=== PATIENT | female | born 1945 | race Caucasian/White ===

== ENCOUNTER 2020-08-08 09:25 | Outpatient (REF) | payer MEDICARE, SELFPAY ==
[2020-08-08 11:23] LABS: MANUAL DIFF FLAG NO
[2020-08-08 11:31] LABS: Basophils Percent Auto 0.6 % (0-2); Eosinophils Absolute Auto 0.2 X10*3/uL (0.0-0.4); Eosinophils Percent Auto 3.9 % (0-4); Hematocrit 45.2 % (37-47); Hemoglobin 13.9 g/dl (12.0-16.0); Imm Gran Abs Auto 0.01 X10*3/uL (0.00-0.03); Imm Gran Pct Auto 0.2 % (0.0-0.4); Lymphocytes Absolute Auto 1.7 X10*3/uL (1.2-4.9); Lymphocytes Percent Auto 31.6 % (20-40); Mean Corpuscular HGB Conc 30.8 g/dl (31.0-35.0); Mean Corpuscular Hemoglobin 26.1 pg (27.0-33.0); Mean Platelet Volume 10.1 fL (9.4-12.3); Monocytes Absolute Auto 0.5 X10*3/uL (0.1-1.2); Monocytes Percent Auto 9.2 % (2-11); Neutrophils Percent Auto 54.5 % (45-73); Platelet Count 275 X10*3/uL (160-400); Red Blood Count 5.32 X10*6/uL (4.20-5.50); Red Cell Distribution Width 13.9 % (11.0-16.0); White Blood Count 5.5 X10*3/uL (4.8-10.8)
[2020-08-08 12:04] LABS: Albumin Level 4.3 g/dL (3.5-5.0); Anion Gap 14 (12-20); Blood Urea Nitrogen 25 mg/dL (9-16); Calcium 9.3 mg/dL (8.4-10.2); Carbon Dioxide 28 mmol/L (22-29); Chloride 103 mmol/L (96-108); Estimated Glomerular Filt Rate 39; Phosphorus 3.4 mg/dL (2.7-4.5); Potassium 4.6 mmol/L (3.3-5.1); Sodium 140 mmol/L (135-145)
== END 2020-08-08 09:26 | disposition home or self-care (01) ==
LOC: HO.HMGCLDS 09:25
PROVIDERS: PCP Internal Medicine; Visit Provider Internal Medicine Hypertension Specialist
DX: I13.10 Hypertensive heart and chronic kidney disease without heart failure, with stage 1 through stage 4 chronic kidney disease, or unspecified chronic kidney disease (principal); N18.30 Chronic kidney disease, stage 3 unspecified
CPT/HCPCS: 36415; 80051; 82040; 82310; 82565; 83735; 84100; 84520; 85025

== ENCOUNTER 2020-08-20 08:57 | Outpatient (REF) | payer MEDICARE, SELFPAY ==
--- NOTE | 2020-08-21 10:25 | MHC.AU.P13 ---
Adult Audiological Evaluation Date of Visit: 08/20/20 Ambulance Officer Used: Not Applicable Reason for Appointment: Audiologic re-evaluation due to perceived change in hearing ability. Rosenda has a long-standing history of asymmetric hearing loss, right ear poorer than left with no speech discrimination ability for the right ear. She notes when she presses the tragus or behind the pinna of the left ear she hears more clearly when wearing the CROS hearing aid system. Previous Hearing Test Results: 06/24/2019 [facility] Left ear - Moderate sloping to moderately-severe sensorineural hearing loss Right ear - Moderately-severe dropping to profound sensorineural hearing loss Ear History: Bothersome Tinnitus/Ringing/Noises in Ears: Right ear greater than left Medical History: Medical History: High Blood Pressure Medical History: High Cholesterol Allergies: Statins, Irbesartan, Diovan, narcotic pain medications Medication List: Ezetimibe, Spirono/HCTZ, Verapamil, Omeprazole, Heidi and Nasacort (as needed) Hearing Instrument History- Right Ear: Cadd Manager: Phonak Model: CROS H2O Serial Number: [id number] Battery Size: 13 Repair Warranty: Dispensed By: [facility] Date of Fittin10/12/2013 Hearing Instrument History- Left Ear: Cadd Manager: Phonak Model: Bolero Q 50-M13 Serial Number: [id number] Battery Size: 13 Warranty: Dispensed By: [facility] Date of Fittin10/12/2013 Otoscopy: Right Ear: Unremarkable Left Ear: Unremarkable Tympanometry: Right Ear: Not performed at today's visit Left Ear: Not performed at today's visit Hearing Evaluation: Transducer(s) Used: Insert Earphones Bone Conduction Method: Conventional Audiometry Stimuli Used: Pure Tones Right Ear: Description of Hearing: Severe to profound sensorineural hearing loss Left Ear: Description of Hearing: Moderately-severe sensorineural hearing loss Speech Recognition Threshold (SRT): Method Used: Monitored Live Voice Stimuli Used: Spondee Words Right Ear: Could Not Test Left Ear: 50 dB HL Word Discrimination: Method: Recorded Lists Word Lists Used: NU-6 Right Ear: Could Not Test Left Ear: 80% at 80 dB HL Most Comfortable Level (MCL): Right Ear: N/A Left Ear: 80 dB HL Comparison: Compared to most recent evaluation: Overall left ear thresholds are stable with the right ear low frequencies decreasing 10 dB Recommendations: Audiological re-evaluation in one year. Will send a reminder card. Hearing aid maintenance performed today. Given Rosenda feels the left ear hearing improves when she presses on the tragus or behind the pinna, decided to change the type of dome on the left aid to try to hold the sound in the ear better. Custom slim tips have been tried in the past; however, this ear piece caused a blocked sensation. If the change in the left ear dome does not improve the sound quality. Discussed trial period with a new CROS system. If interested in pursuing new CROS system, Rosenda may schedule a Hearing Aid Evaluation appointment. If after 02/20/2021, a new hearing test must be performed. Diagnosis: Primary Diagnosis: H90.3 Bilateral Sensorineural Hearing Loss Services Performed: Comprehensive Audiological Evaluation (CPT 32705) Signature: Provider: Flaquito Fuller, SOLA-A
== END 2020-08-20 08:58 | disposition home or self-care (01) ==
LOC: HO.SH 08:57
PROVIDERS: Visit Provider Internal Medicine
DX: H90.3 Sensorineural hearing loss, bilateral (principal)
CPT/HCPCS: 92557

== ENCOUNTER 2020-08-28 10:22 | Outpatient (REF) | payer MEDICARE, SELFPAY ==
--- NOTE | ~2020-08-28 | MM_ITS ---
EXAMINATION: MM SCREENING DIGITAL BREAST TOMOSYNTHESIS, BILATERAL CLINICAL INFORMATION: Screening. Asymptomatic. The lifetime risk of breast cancer based on the Tyrer-Cuzick Model is 1%. COMPARISON: Mammography: 06/21/2019, 03/29/2018, 03/26/2017 TECHNIQUE: Digital breast tomosynthesis is performed in both the craniocaudal and mediolateral oblique views along with computer-aided detection (CAD). Synthesized 2D images are generated from the tomosynthesis. FINDINGS: There are scattered areas of fibroglandular density (ACR BI-RADS breast composition Category b). There are scattered bilateral parenchymal asymmetries similar to prior exams. There is no developing density or interval mass or architectural abnormality or abnormal calcifications. The axilla and skin contours are unremarkable. No significant changes from prior studies. MM/MM tomosynthesis screening BI IMPRESSION: No mammographic evidence of malignancy. ASSESSMENT: BI-RADS 2: Benign RECOMMENDATION: Routine annual mammography screening. This patient's information was entered into a reminder system with a target due date for their next mammogram.
== END 2020-08-28 10:23 | disposition home or self-care (01) ==
LOC: HO.MAMMO 10:22
PROVIDERS: PCP Internal Medicine; Visit Provider Internal Medicine
DX: Z12.31 Encounter for screening mammogram for malignant neoplasm of breast (principal)
CPT/HCPCS: 77063; 77067

== ENCOUNTER → 2020-10-22 12:47 | Outpatient (BNVA) | payer MEDICARE, SELFPAY | PROVIDERS: PCP Internal Medicine; Visit Provider Internal Medicine | DX: I48.0 Paroxysmal atrial fibrillation (principal); I70.0 Atherosclerosis of aorta; I10 Essential (primary) hypertension; K26.4 Chronic or unspecified duodenal ulcer with hemorrhage; Z79.899 Other long term (current) drug therapy | CPT/HCPCS: 93005; 99212 ==

== ENCOUNTER → 2020-10-26 11:03 | Outpatient (REF) | payer MEDICARE, SELFPAY ==
--- NOTE | 2020-10-26 11:07 | HM_ITS ---
REQUESTING PROVIDER: Dr. Younger. REASON FOR TEST: Paroxysmal atrial fibrillation. TECHNIQUE: The patient was hooked up to cardiac event monitor on 10/26/2020 to 11/25/2020 for a total period of 30 days. INTERPRETATION: Baseline rhythm is normal sinus rhythm with heart rate varying from 52 to 73 beats per minute. There were no episodes of any arrhythmias noted. There was no atrial fibrillation. The patient reported symptom of baseline shortness of breath that correlated with sinus rhythm. CONCLUSION: Holter report is remarkable for: 1. Baseline normal sinus rhythm with no atrial fibrillation. 2. The patient reported symptoms of shortness of breath, correlated with sinus rhythm. Rosendo Smallwood MD NRS/MODL / [id number]
== END ==
LOC: HO.CARD 11:03
PROVIDERS: PCP Internal Medicine; Visit Provider Internal Medicine
DX: I48.0 Paroxysmal atrial fibrillation (principal)
CPT/HCPCS: 93270

== ENCOUNTER 2020-11-27 23:28 | Emergency (ER) | payer MEDICARE, SELFPAY ==
--- NOTE | ~2020-11-27 | XR_ITS ---
EXAMINATION: XR CHEST CLINICAL INFORMATION: Shortness of breath COMPARISON: None TECHNIQUE: Frontal view of the chest was obtained. FINDINGS: Normal symmetric lung volumes. No parenchymal consolidation. Left basilar subsegmental atelectasis. No pleural effusion. No pneumothorax. Cardiomediastinal silhouette and pulmonary vascularity are within normal limits. Aorta is atherosclerotic. No acute osseous abnormalities. XR/XR chest 1V IMPRESSION: No acute findings.
[2020-11-27 23:39] VITALS: BP 147/93; PULSE 120; RESP 24; TEMP 36.7; O2SAT 95; BMI 34.9
--- NOTE | 2020-11-27 23:45 | ECG_ITS ---
Test Reason : SOB Blood Pressure : / mmHG Vent. Rate : 109 BPM Atrial Rate : 088 BPM P-R Int : 000 ms QRS Dur : 076 ms QT Int : 342 ms P-R-T Axes : 000 -15 -17 degrees QTc Int : 460 ms Atrial fibrillation with rapid ventricular response Inferior infarct , age undetermined - cannot exclude Abnormal ECG When compared with ECG of 24-JAN-2019 08:42, Rhythm change Referred By: Rell Mayer Electronically Signed By:AGUEDA ENCISO
[2020-11-27 23:56] LABS: MANUAL DIFF FLAG NO
[2020-11-27 23:57] LABS: Basophils Percent Auto 0.1 % (0-2); Eosinophils Absolute Auto 0.2 X10*3/uL (0.0-0.4); Eosinophils Percent Auto 1.5 % (0-4); Hematocrit 45.9 % (37-47); Hemoglobin 14.9 g/dl (12.0-16.0); Imm Gran Abs Auto 0.05 X10*3/uL (0.00-0.03); Imm Gran Pct Auto 0.5 % (0.0-0.4); Lymphocytes Absolute Auto 2.1 X10*3/uL (1.2-4.9); Lymphocytes Percent Auto 19.2 % (20-40); Mean Corpuscular HGB Conc 32.5 g/dl (31.0-35.0); Mean Corpuscular Hemoglobin 26.8 pg (27.0-33.0); Mean Corpuscular Volume 82.6 fL (80-98); Mean Platelet Volume 9.2 fL (9.4-12.3); Monocytes Absolute Auto 0.7 X10*3/uL (0.1-1.2); Monocytes Percent Auto 6.7 % (2-11); Neutrophils Absolute Auto 7.7 X10*3/uL (2.0-8.3); Platelet Count 296 X10*3/uL (160-400); Red Blood Count 5.56 X10*6/uL (4.20-5.50); Red Cell Distribution Width 14.6 % (11.0-16.0); White Blood Count 10.7 X10*3/uL (4.8-10.8)
--- NOTE | 2020-11-28 00:02 | ED.ARRPALP ---
HPI - Arrhythmia/Palpitations General Chief Complaint: Arrhythmia/Palpitations Stated Complaint: A fib Time Seen by Provider: 11/28/20 00:01 Source: patient Mode of arrival: ambulatory Limitations: no limitations History of Present Illness HPI narrative: Patient with history of paroxysmal atrial fibrillation on verapamil 200 mg daily and metoprolol 25 mg daily was doing okay for last few months till last 1 when he had a small episode of palpitation and was wearing Holter monitor for 30 days, today since 22:00 notice heart racing with dizziness lightheadedness and chest discomfort EMS noticed heart rate of 150s in the ER patient's heart rate was in 120s AFib patient denies any fever chills cough, feels slightly short winded patient had bleeding ulcer last year and had to be given 4 units of blood after she started on Eliquis for AFib Related Data Home Medications Medication Instructions Recorded Confirmed ezetimibe 10 mg tablet 10 mg PO DAILY 10/22/20 10/22/20 metoprolol succinate 25 mg 25 mg PO DAILY 10/22/20 10/22/20 tablet,extended release 24 hr multivitamin 1 tab PO DAILY 10/22/20 10/22/20 omeprazole 20 mg capsule,delayed 20 mg PO DAILY 10/22/20 10/22/20 release rosuvastatin 10 mg tablet 10 mg PO BEDTIME 10/22/20 10/22/20 spironolactone 25 1 tab PO DAILY 10/22/20 10/22/20 mg-hydrochlorothiazide 25 mg tablet verapamil 200 mg capsule 24hr 200 mg PO DAILY 10/22/20 10/22/[address],ext.release Allergies Allergy/AdvReac Type Severity Reaction Status Date / Time irbesartan [IRBESARTAN] Allergy Unknown RASH Verified 11/27/20 23:44 latex [LATEX] Allergy Unknown RASH Verified 11/27/20 23:44 lisinopril [LISINOPRIL] Allergy Unknown PER MD Verified 11/27/20 23:44 losartan [LOSARTAN] Allergy Unknown PER MD Verified 11/27/20 23:44 NSAIDS (Non-Steroidal Allergy Unknown STAGE 3 Verified 11/27/20 23:44 Anti-Inflamma KIDNEY [NSAIDS (NON-STEROIDAL DISEASE ANTI-INFLAMMA] omeprazole [OMEPRAZOLE] Allergy Unknown RASH Verified 11/27/20 23:44 Ozhbdwh-Vdx-Ewq Reductase Allergy Unknown PER MD Verified 11/27/20 23:44 Inhibitor [ZBGAELG-HKV-UGF REDUCTASE INHIBITOR] sulfamethoxazole Allergy Unknown RASH Verified 11/27/20 23:44 [From BACTRIM] trimethoprim [From BACTRIM] Allergy Unknown RASH Verified 11/27/20 23:44 valsartan [From DIOVAN] Allergy Unknown HIVE,DIFFICULTY Verified 11/27/20 23:44 BREATHING meperidine [From Demerol] AdvReac Mild VOMITING Verified 10/22/20 12:57 BANDAIDS Allergy Unknown RASH Uncoded 10/22/20 12:57 most narcotics Allergy Unknown unk Uncoded 10/22/20 12:57 ALL NARCOTICS AdvReac Unknown NAUSEA AND Uncoded 10/22/20 12:57 VOMITING Review of Systems Review of Systems: Constitutional : No Weight loss, No Fever, No Chills ENT/Mouth : No sore throat, No Rhinorrhea Eyes: No Eye Pain, No Swelling Cardiovascular : No Chest Pain,+palpitations Respiratory : No Cough, No Sputum, + shortness of breath Gastrointestinal : no Nausea, No Vomiting, No Diarrhea, No abdominal Pain, no black stools Genitourinary : No Dysuria, No Urinary Frequency Musculoskeletal : No joint pain, No Myalgias, No Joint Swelling Skin : No Skin Lesions, No rash Neuro : No Weakness, No Numbness, + Dizziness, No Headache Psych : No Anxiety/Panic, No Depression Heme/Lymph: No Bruising, No Lymphadenopathy Endocrine : No Polyuria, No Polydipsia All other systems reviewed and are negative PMFSH Past Medical History Medical History Aortic calcification Duodenal ulcer Essential hypertension Hemorrhage of gastrointestinal tract, unspecified PAF (paroxysmal atrial fibrillation) Surgical History History of colectomy History of foot surgery History of hysterectomy History of parathyroidectomy Family History Family History Father No problems noted. Mother No problems noted. Social History Social History Advance Directives: No Advance Directives Information Provided: No Physical Exam Vital Signs: Vital Signs: Last Vital Signs Temp 98.1 F 11/27/20 23:39 Pulse 89 11/28/20 01:17 Resp 16 11/28/20 01:17 BP 134/73 11/28/20 01:17 Pulse Ox 95 11/28/20 01:17 Body Mass Index 34.9 Appearance: Alert. Oriented X3. No acute distress. Eyes: PERRLA, No Nystagmus ENT: Pharynx normal. Oral Mucosa moist Neck: Normal inspection. Neck supple. CVS: Irregularly irregular heart rate tachycardia no murmur Pulses normal. Respiratory: No respiratory distress. Equal air entry bilateral, no wheezing/rales/rhonchi Abdomen: Soft and nontender. Bowel sounds are present, no mass palpable, no CVA tenderness Skin: Skin warm and dry. Normal skin color. Normal skin turgor. Extremities: No lower extremity edema. No calf tenderness Neuro: Oriented X 3. No motor deficit. No sensory deficit.No cerebellar signs , cranial nerves II-XII intact MDM - Arrhythmia/Palpitations MDM Narrative Medical decision making narrative: Patient with atrial fibrillation on metoprolol and verapamil came with rapid ventricular rate in 150s responded to 5 mg of Lopressor IV at this time heart rate is in 80s. 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 Lab Data Attestation: I reviewed the patient's lab results. Result diagrams: 11/27/20 23:52 11/27/20 23:52 Labs: Lab Results 11/27/20 11/27/20 11/27/20 Range/Units 23:52 23:52 23:52 WBC 10.7 (4.8-10.8) X10*3/uL RBC 5.56 H (4.20-5.50) X10*6/uL Hgb 14.9 (12.0-16.0) g/dl Hct 45.9 (37-47) % MCV 82.6 (80-98) fL MCH 26.8 L (27.0-33.0) pg MCHC 32.5 (31.0-35.0) g/dl RDW 14.6 (11.0-16.0) % Plt Count 296 (160-400) X10*3/uL MPV 9.2 L (9.4-12.3) fL Immature Gran % (Auto) 0.5 H (0.0-0.4) % Neut % (Auto) 72.0 (45-73) % Lymph % (Auto) 19.2 L (20-40) % [place] % (Auto) 6.7 (2-11) % Eos % (Auto) 1.5 (0-4) % Baso % (Auto) 0.1 (0-2) % Lymph # (Auto) 2.1 (1.2-4.9) X10*3/uL [place] # (Auto) 0.7 (0.1-1.2) X10*3/uL Eos # (Auto) 0.2 (0.0-0.4) X10*3/uL Baso # (Auto) 0.0 (0.0-0.2) X10*3/uL Abs Immat Gran (auto) 0.05 H (0.00-0.03) X10*3/uL Absolute Neuts (auto) 7.7 (2.0-8.3) X10*3/uL Absolute Nucleated RBC 0.000 (0.0-0.012) X10*3/uL Nucleated RBC % (auto) 0.0 (0.0-0.2) /100WBC Hold Blue Top SEE NOTE Sodium 136 (135-145) mmol/L Potassium 4.1 (3.3-5.1) mmol/L Chloride 99 (96-108) mmol/L Carbon Dioxide 23 (22-29) mmol/L Anion Gap 18 (12-20) BUN 48 H D (9-16) mg/dL Creatinine 1.38 (0.5-1.4) mg/dL Estim Creat Clear Calc 33.5 Estimated GFR 37 Random Glucose 138 H (60-115) mg/dL Calcium 9.5 (8.4-10.2) mg/dL Troponin I High Sens (<3.5-17.0) ng/L 11/27/20 Range/Units 23:52 WBC (4.8-10.8) X10*3/uL RBC (4.20-5.50) X10*6/uL Hgb (12.0-16.0) g/dl Hct (37-47) % MCV (80-98) fL MCH (27.0-33.0) pg MCHC (31.0-35.0) g/dl RDW (11.0-16.0) % Plt Count (160-400) X10*3/uL MPV (9.4-12.3) fL Immature Gran % (Auto) (0.0-0.4) % Neut % (Auto) (45-73) % Lymph % (Auto) (20-40) % [place] % (Auto) (2-11) % Eos % (Auto) (0-4) % Baso % (Auto) (0-2) % Lymph # (Auto) (1.2-4.9) X10*3/uL [place] # (Auto) (0.1-1.2) X10*3/uL Eos # (Auto) (0.0-0.4) X10*3/uL Baso # (Auto) (0.0-0.2) X10*3/uL Abs Immat Gran (auto) (0.00-0.03) X10*3/uL Absolute Neuts (auto) (2.0-8.3) X10*3/uL Absolute Nucleated RBC (0.0-0.012) X10*3/uL Nucleated RBC % (auto) (0.0-0.2) /100WBC Hold Blue Top Sodium (135-145) mmol/L Potassium (3.3-5.1) mmol/L Chloride (96-108) mmol/L Carbon Dioxide (22-29) mmol/L Anion Gap (12-20) BUN (9-16) mg/dL Creatinine (0.5-1.4) mg/dL Estim Creat Clear Calc Estimated GFR Random Glucose (60-115) mg/dL Calcium (8.4-10.2) mg/dL Troponin I High Sens 12.9 (<3.5-17.0) ng/L ECG Data Attestation: I personally reviewed and interpreted this ECG as follows: Interpretation: Atrial fibrillation with ventricular rate of 109 beats per minute Q-wave inferior leads no acute ischemic changes Discharge Plan Discharge Clinical Impression: PAF (paroxysmal atrial fibrillation) Patient Disposition: Home, Self-Care Instructions: A-fib (Atrial Fibrillation) (ED) Additional Instructions: Continue medications as prescribed and follow with branding machine tender Increase the dose of metoprolol to 25 mg twice daily Report to the ER if further attacks of palpitation Prescriptions: No Action metoprolol succinate 25 mg tablet extended release 24 hr 25 mg PO DAILY RF: 0 rosuvastatin 10 mg tablet 10 mg PO BEDTIME RF: 0 omeprazole 20 mg capsule,delayed release(DR/EC) 20 mg PO DAILY RF: 0 spironolacton-hydrochlorothiaz 25-25 mg tablet 1 tab PO DAILY RF: 0 ezetimibe 10 mg tablet 10 mg PO DAILY RF: 0 verapamil 200 mg capsule, [address] 200 mg PO DAILY RF: 0 multivitamin Tablet 1 tab PO DAILY RF: 0
--- NOTE | 2020-11-28 00:05 | PC.NURSE ---
IV established, labs and EKG obtained by this RN. at bedside, plan for IV medications. Pt resting in bed, family at bedside. Continue to monitor.
[2020-11-28 00:19] VITALS: BP 122/69; PULSE 116
[2020-11-28] MEDS: Metoprolol Tartrate 5 MG/5 ML VIAL IVPUSH (00:19)
[2020-11-28 00:28] VITALS: BP 107/57; PULSE 92; RESP 22; O2SAT 95
--- NOTE | 2020-11-28 00:30 | PC.NURSE ---
Pt medicated per JOSIAH VSS. XRay at bedside.
[2020-11-28 00:31] LABS: Troponin-I High Sensitivity 12.9 ng/L (<3.5-17.0)
[2020-11-28 00:47] LABS: Anion Gap 18 (12-20); Blood Urea Nitrogen 48 mg/dL (9-16); Calcium 9.5 mg/dL (8.4-10.2); Carbon Dioxide 23 mmol/L (22-29); Chloride 99 mmol/L (96-108); Creatinine Clr Calc Pharmacy 33.5; Estimated Glomerular Filt Rate 37; Glucose Random 138 mg/dL (60-115); Potassium 4.1 mmol/L (3.3-5.1); Sodium 136 mmol/L (135-145)
--- NOTE | 2020-11-28 01:16 | PC.NURSE ---
MD at bedside discussing results and plan to DC home. VSS.
[2020-11-28 01:17] VITALS: BP 134/73; PULSE 89; RESP 16; O2SAT 95
== END 2020-11-28 01:42 | disposition home or self-care (01) ==
PROVIDERS: Emergency Provider Internal Medicine; PCP Internal Medicine
DX: I48.0 Paroxysmal atrial fibrillation (principal); I10 Essential (primary) hypertension; Z79.899 Other long term (current) drug therapy
CPT/HCPCS: 36415; 71045; 80048; 84484; 85025; 93005; 96374; 99284

== ENCOUNTER 2020-12-04 14:08 | Outpatient (REF) | payer MEDICARE, SELFPAY ==
--- NOTE | ~2020-12-04 | XR_ITS ---
EXAMINATION: XR HAND, BILATERAL CLINICAL INFORMATION: Hand pain. COMPARISON: None. TECHNIQUE: 3 views of each hand. FINDINGS: Left Hand: There is no evidence of acute fracture or dislocation of the left hand. There is some mild spurring about the 1st metacarpophalangeal joint and 1st interphalangeal joint. No significant joint space narrowing is seen. No erosive bony changes noted. No significant soft tissue swelling. No significant wrist abnormality identified. There is minimal spurring about the 1st carpometacarpal joint. There is a subchondral cysts seen within the proximal lunate. Right Hand: 3 views of the right hand do not demonstrate any evidence of acute fracture or dislocation. Bony density about the ulnar aspect of the 5th distal interphalangeal joint seen, most likely posttraumatic in nature. Joint spaces are maintained. There is mild spurring about the 1st carpometacarpal joint. There is some mild degenerative spurring about the 1st metacarpophalangeal joint with subchondral cyst about the distal 1st metacarpal. There is a small periarticular erosion about the radial aspect base of the 3rd proximal phalanx. No other erosive changes are identified. There is calcification of the triangular fibrocartilage. XR/XR hand LT min 3V IMPRESSION: Mild degenerative change of both hands without significant osteoarthritis or erosive arthritides appreciated.
--- NOTE | ~2020-12-04 | XR_ITS ---
EXAMINATION: XR HAND, BILATERAL CLINICAL INFORMATION: Hand pain. COMPARISON: None. TECHNIQUE: 3 views of each hand. FINDINGS: Left Hand: There is no evidence of acute fracture or dislocation of the left hand. There is some mild spurring about the 1st metacarpophalangeal joint and 1st interphalangeal joint. No significant joint space narrowing is seen. No erosive bony changes noted. No significant soft tissue swelling. No significant wrist abnormality identified. There is minimal spurring about the 1st carpometacarpal joint. There is a subchondral cysts seen within the proximal lunate. Right Hand: 3 views of the right hand do not demonstrate any evidence of acute fracture or dislocation. Bony density about the ulnar aspect of the 5th distal interphalangeal joint seen, most likely posttraumatic in nature. Joint spaces are maintained. There is mild spurring about the 1st carpometacarpal joint. There is some mild degenerative spurring about the 1st metacarpophalangeal joint with subchondral cyst about the distal 1st metacarpal. There is a small periarticular erosion about the radial aspect base of the 3rd proximal phalanx. No other erosive changes are identified. There is calcification of the triangular fibrocartilage. XR/XR hand RT min 3V IMPRESSION: Mild degenerative change of both hands without significant osteoarthritis or erosive arthritides appreciated.
[2020-12-04 15:25] LABS: MANUAL DIFF FLAG NO
[2020-12-04 15:28] LABS: Basophils Percent Auto 0.3 % (0-2); Eosinophils Absolute Auto 0.1 X10*3/uL (0.0-0.4); Eosinophils Percent Auto 2.1 % (0-4); Hematocrit 43.1 % (37-47); Hemoglobin 13.4 g/dl (12.0-16.0); Imm Gran Abs Auto 0.02 X10*3/uL (0.00-0.03); Imm Gran Pct Auto 0.3 % (0.0-0.4); Lymphocytes Absolute Auto 1.2 X10*3/uL (1.2-4.9); Lymphocytes Percent Auto 20.8 % (20-40); Mean Corpuscular HGB Conc 31.1 g/dl (31.0-35.0); Mean Corpuscular Hemoglobin 26.4 pg (27.0-33.0); Mean Platelet Volume 9.4 fL (9.4-12.3); Monocytes Absolute Auto 0.3 X10*3/uL (0.1-1.2); Monocytes Percent Auto 5.7 % (2-11); Neutrophils Absolute Auto 4.1 X10*3/uL (2.0-8.3); Neutrophils Percent Auto 70.8 % (45-73); Platelet Count 246 X10*3/uL (160-400); Red Blood Count 5.07 X10*6/uL (4.20-5.50); Red Cell Distribution Width 14.7 % (11.0-16.0); White Blood Count 5.8 X10*3/uL (4.8-10.8)
[2020-12-04 15:48] LABS: Alanine Aminotransferase 20 U/L (0-31); Albumin Level 4.3 g/dL (3.5-5.0); Alkaline Phosphatase 54 U/L (39-117); Anion Gap 11 (12-20); Aspartate Amino Transferase 20 U/L (5-31); Bilirubin Total 0.6 mg/dL (0.0-1.0); Blood Urea Nitrogen 29 mg/dL (9-16); C Reactive Protein 0.38 mg/dL (< or = 0.50); Calcium 9.6 mg/dL (8.4-10.2); Carbon Dioxide 29 mmol/L (22-29); Chloride 103 mmol/L (96-108); Estimated Glomerular Filt Rate 37; Glucose Random 165 mg/dL (60-115); Potassium 4.1 mmol/L (3.3-5.1); Sodium 139 mmol/L (135-145); Total Protein 6.5 g/dL (6.5-8.0)
[2020-12-04 16:11] LABS: Erythrocyte Sedimentation Rate 28 MM/HR (0-20)
[2020-12-05 08:42] LABS: Lyme Abs Screen <0.90 index
[2020-12-05 15:36] LABS: Cyclic Citrullinated Peptide <16 UNITS
[2020-12-08 15:22] LABS: Vitamin D 25-OH, D2 <4 ng/mL; Vitamin D 25-OH, D3 40 ng/mL; Vitamin D 25-OH, Total 40 ng/mL (30-100)
== END 2020-12-04 14:09 | disposition home or self-care (01) ==
LOC: HO.XRAY 14:08
PROVIDERS: PCP Internal Medicine; Visit Provider Student in an Organized Health Care Education/Training Program
DX: M79.641 Pain in right hand (principal); M79.642 Pain in left hand; M65.4 Radial styloid tenosynovitis [de Quervain]; M25.50 Pain in unspecified joint; Z79.899 Other long term (current) drug therapy
CPT/HCPCS: 36415; 73130; 80053; 82306; 84443; 85025; 85652; 86140; 86200; 86617; 86618; 99202

== ENCOUNTER → 2020-12-11 12:50 | Outpatient (REF) | payer MEDICARE, SELFPAY ==
--- NOTE | 2020-12-11 12:53 | CA_ITS ---
Transthoracic Echocardiogram Patient (Last, First, Middle): Rosenda Butler L Gender: Female Date of : 1945 Age: 75 Procedure Date: 12/11/2020 Procedure Type: Transthoracic Echocardiogram Location: OP Height: 154.94 cm Weight: 86.64 kg BSA: 1.85 m2 Heart Rate: bpm BP: 178 / 92 mmHg Consolidation Accountant: MERISSA/CHANTAL Referring MD: Melquiades Younger MD Wound/Ostomy Clinical Nurse Specialist: Rosendo Smallwood MD Symptoms: I48.0 - Paroxysmal atrial fibrillation Study Quality: Technically Difficult ECG Rhythm: Sinus Conclusions: - 1. Normal LV systolic function with grade 2 diastolic dysfunction 2. Mildly dilatedleft atrium 3. Normal cardiac valvular Doppler 4. Systolic pressure 5. No pericardial effusion Findings Left Ventricle Normal left ventricular size, thickness, and systolic function. The visually estimated ejection fraction is between 55-60%. Spectral Doppler is indicative of a pseudonormal filling pattern. E/E prime ratio is >15, consistent with elevated filling pressures. Evidence suggests grade II (moderate) diastolic dysfunction. Right Ventricle Normal right ventricular cavity size and systolic function. Atria The left atrium is mildly dilated. There is lipomatous hypertrophy of the interatrial septum. There is no evidence of interatrial shunt. The right atrium is normal in size. Aortic Valve Normal aortic valve structure and function. There is no aortic valve stenosis. There is no aortic valve regurgitation. Mitral Valve Normal mitral valve structure and function. There is trace mitral valve regurgitation. There is no mitral valve stenosis. Pulmonic Valve The pulmonic valve was not well visualized. Tricuspid Valve Likely normal tricuspid valve structure and function. Tricuspid regurgitation envelope is inadequate for calculation of right ventricular systolic pressure. Great Vessels All visible segments of the aorta are normal in size. The pulmonary artery was not well visualized. Venous The inferior vena cava is normal in size and collapses greater than 50% with inspiration. Pericardium/Pleural There is no evidence of pericardial effusion. Prior Study Comparison Changes noted compared to prior study dated: 01/20/2019. LV diastolic function is pseudonormal in this study Measurements M-Mode Liner Measurements Normals - Women/Men AOV Cusps: 2.00 1.5-2.6 cm/m2 2D Linear Measurements IVSd: 1.04 0.6-0.9/0.6-1.0 cm LVIDd: 4.49 3.9-5.3/4.2-5.9 cm LVIDd Index: 2.43 2.4-3.2/2.2-3.1 cm/m2 LVIDs: 2.79 2.0-3.6 cm LVPWd: 0.95 0.7-1.1 cm Ao Root: 3.30 2.1-3.5 cm LA Diam: 4.20 2.7-3.8/3.0-4.0 cm LAIDs Index: 2.27 1.5-2.3 cm/m2 LV Mass: 210.05 67-162/88-224 g LV Mass Index: 113.54 43-95/49-115 g/m2 LVOT Diam: 1.90 3.0+(-)1.3 cm 2D Systolic Function EF 4C: 47.30 >55% EF 2C: 61.20 >55% Mitral Valve MV Pk E: 1.10 MV PK A: 0.83 MV Decel Time: 191.00 E/A: 1.30 E'Lateral: 8.05 E'Medial: 5.98 E/E' Med: 18.40 E/E' Lat: 13.70 PHT: 56.00 MVA PHT: 3.93 Decel Nicollet: 5.73 Aortic Valve AoV Pk Aniket: 1.18 AoV Mn Aniket: 0.78 AoV VTI: 0.28 AoV Pk Grad: 6.00 Aov Mn Grad: 3.00 TAQUERIA Cont.VTI: 2.67 LVOT LVOT Pk Aniket: 0.97 LVOT Mn Aniket: 0.69 LVOT VTI: 0.26 LVOT Pk Grad: 4.00 LVOT Mn Grad: 3.00 LVOT Diam: 1.90 LVOT Area: 2.84 Diastolic Function MV Pk E: 1.10 MV Pk A: 0.83 E/A: 1.30 E'Medial: 5.98 E/E' Med: 18.40 E' Laterial: 8.05 E/E' Lat: 13.70 Tricuspid Valve TR Pk Aniket: 2.69 TR Pk Grad: 29.00 RA Press: 3.00 Great Vessels Aorta Ao Root-2D: 3.30 2.0-3.7 cm Ao Asc: 2.80 2.1-3.4 cm Ao Arch: 2.60 Pulmonary Valve PV Pk Aniket: 0.86 Peak PV Grad: 3.00 Updated in Other Vendor System with Status of Final Rosendo Smallwood MD electronically signed on 12/11/2020 4:28:20 PM with status of Final
== END ==
LOC: HO.CARD 12:50
PROVIDERS: Visit Provider Internal Medicine
DX: I48.0 Paroxysmal atrial fibrillation (principal)
CPT/HCPCS: 93306

== ENCOUNTER → 2020-12-13 11:09 | Outpatient (BNVA) | payer MEDICARE, SELFPAY | PROVIDERS: PCP Internal Medicine; Referring Provider Internal Medicine; Visit Provider Internal Medicine | DX: I48.0 Paroxysmal atrial fibrillation (principal); I70.0 Atherosclerosis of aorta; K26.4 Chronic or unspecified duodenal ulcer with hemorrhage; I10 Essential (primary) hypertension | CPT/HCPCS: 99212 ==

== ENCOUNTER → 2020-12-25 09:09 | Outpatient (BNVA) | payer MEDICARE, SELFPAY | PROVIDERS: PCP Internal Medicine; Referring Provider Internal Medicine; Visit Provider Internal Medicine Gastroenterology | DX: K26.9 Duodenal ulcer, unspecified as acute or chronic, without hemorrhage or perforation (principal) | CPT/HCPCS: 99212 ==

== ENCOUNTER 2021-01-09 12:30 | Outpatient (RCR) | payer MEDICARE, SELFPAY ==
--- NOTE | 2020-12-20 15:09 | MHC.OT.OEV ---
[address] [phone] F: [phone] Occupational Therapy Evaluation Diagnosis: RIGHT HAND PAIN Date of Onset: 10/02/20 Attending Provider: Barney Gonzalez Prescribed Treatment: SOFIA IQBAL Follow Up Appointment: 01/10/21 History of Current Condition: REPORTS GRADUAL ONSET OF PAIN TO R THUMB AND RADIAL WRIST, WELL PAIN IN IPs OF B/L HANDS Significant Medical History: HX OF CTS, L SHOULDER INJURY, TRIGGER FINGER L D3 S/P CORTISONE INJECTION , BACK PAIN, ESSENTIAL HTN, RECENT DX OF AFIB Precautions/Contraindications: PAIN, AFIB Patient Goals: TO DECREASE PAIN AND PREVENT RETURN OF SYMPTOMS Hand Dominance: Right Observations: PRE-KEON THUMB SPICA DONNED QuickDASH Score: 30% Prior Level of Function and Occupation Self Care, Employment, Leisure: RETIRED. INVOLVED WITH [employer] HOBBIES: JOSE, CARING FOR ELDERLY DOG (20 LB), ATTENDS [employer] Living Situation, Family and/or Social Support: LIVES WITH DAUGHTER (DOES YARD WORK) Current Level of Function and Occupation Self Care, Employment, Leisure: MODERATE DIFFICULTIES WITH WRITING, CARRYING 20 LB DOG, CROCHETING. MILD DIFFICULTIES WITH OPENING TIGHT JAR AND DOING HOUSEHOLD TASKS. DAUGHTER ASSISTS WITH YARD WORK. Sleep: WEARING PREFAB SPLINT AT NIGHT WITH NO DIFFICULTIES IN SLEEPING (WAKES OCASSIONALLY DUE TO L SHOULDER PAIN) Driving: INITIALLY HAD DIFFICULTIES WITH TURNING CHICAS, FASTENING SEAT BELT... HAS SINCE IMPROVED SINCE BEING ON PREDNISONE Vision: WEARS GLASSES; [place]K Balance: Pain Assessment Pain Score: 0-3/10 Pain Scale Used: Numeric (0 - 10) Pain Location and Description: PAINFREE AT REST, 2-3/10 WITH ACTIVITY Aggravating Factors: Alleviating Factors: RECENTLY COMPLETED LAST DOSE OF PREDNISONE, HAS USED ICE INTERMITTENTLY; WEARING SPLINT AT NIGHT AND NEEDED DURING THE DAY. UNABLE TO TAKE NSAIDs DUE TO PMHX. Skin and Soft Tissue Assessment Skin and Soft Tissue: Comments: MILD EDEMA IN IPs Sensory Assessment Temperature: Light Touch: WFL Proprioception: Vibration: Comments: Edema Assessment Upper Extremity: WNL Lower Extremity: Comments: Dexterity Assessment Dexterity: Right Impaired Comments: FUNCTIONAL DEXTERITY TEST: RIGHT 36 SECONDS (MINIMALLY FUNCTIONAL), LEFT 32 SECONDS Special Tests Comments: (+) SIMEON R HAND AROM(PROM) Strength Elbow Flexion: Extension: Pronation: Supination: Comments: Flexion: Extension: Pronation: Supination: Comments: WFL Wrist Flexion: Extension: Ulnar Deviation: Radial Deviation: Comments: Flexion: R 55, L 55 Extension: R 70, L 75 Ulnar Deviation: Radial Deviation: Comments: Thumb Thumb CMC Flexion: Thumb MCP Flexion: Thumb IP Flexion: Radial Abduction: Palmar Abduction: [place] (Kapandji 0-10): 8 Comments: Digits Index MCP: PIP: DIP: Long MCP: PIP: DIP: Ring MCP: PIP: DIP: Small MCP: PIP: DIP: Comments: 2.5CM TIP TO DPC R HAND Gross Grasp: R 46 POUNDS, L 55 POUNDS Lateral Pinch: R 10 POUNDS, L 12 POUNDS Two-Point Pinch: Three-Jaw Rene: Comments: Patient Education Primary Language: Maltese Abstractor Required: No Current Knowledge: Understands information with skills for self-management Teaching Method: Demonstration Handouts Verbal Education Needs Identified on Evaluation: ADL's Disease Information Equipment Use Exercise Pain Safety How did patient/family demonstrate learning? Patient demonstrates Patient verbalizes Barriers to Learning: None Readiness for Learning: Accepting Who was educated? Patient Comments: Plan of Care Assessment: KARAN REPORTS ABOUT A TWO MONTH HISTORY OF R THUMB AND RADIAL WRIST PAIN. SHE REPORTS THIS HAS HAPPENED BEFORE AND IMPROVED WITH PREDNISONE. SHE ALSO REPORTS PAIN IN B/L HANDS, PARTICULARLY IN IPs. SHE WAS ISSUED A PREFAB THUMB SPICA SPLINT FROM HER DOCTOR, AND WEARS IT MOSTLY AT NIGHT. SHE STATES HER PAIN IS LOW DUE TO PREDNISONE, YET FEARFUL THE PAIN MAY RETURN SHE JUST FINISHED HER LAST DOSE TODAY. Pt REPORTS A 30% LIMITATION PER THE QUICK DASH. SHE WOULD CONTINUE TO BENEFIT FROM SKILLED OT TO ACHIEVE OPTIMAL FUNCTIONAL LEVEL. STG Duration: 2 WEEKS Short Term Goals: IND HEP IND JOINT PROTECTION AND ACTIVITY MODIFICATION IND HEAT/ICE, INCLUDING USE OF HOME PARAFFIN UNIT IMPROVE DEXTERITY TO MODERATELY FUNCTIONAL, PER FUNCTIONAL DEXTERITY TEST TOLERATE LIGHT IADLs AND LIFTING 10 POUNDS WITH <3/10 PAIN LTG Duration: 4 WEEKS Snf Goals: QUICK DASH <15 % RETURN TO CROCHETING WITH IND JOINT PROTECTION STRATEGIES AND <2/10 PAIN R GRASP >55 POUNDS IND PROGRESSION OF HEP WEAN FROM ORTHOSIS REPORT <3/10 PAIN WITH MODERATE IADLs AND LIFTING OF 20 POUNDS Frequency and Duration: The patient will be seen 2X/WEEK FOR 4 WEEKS Treatment Plan: Therapeutic Exercise Therapeutic Activity Home Exercise Program Splinting Neuro Re-ed Patient Education Desensitization/Sensory Re-ed Edema Control ADL Training Ultrasound NMES Iontophoresis Paraffin Fluidotherapy MHP Cold Packs Joint Mobilization Soft Tissue Mobilization Kinesiotaping Electronically Signed By: ROGELIO RAMIREZ OTR/Jazmin Reviewed/agree with student documentation: N/A Therapist: Please sign and return to therapist, Thank you for your referral.
--- NOTE | 2021-01-09 13:22 | MHC.OT.DC ---
[address] [phone] F: [phone] Occupational Therapy Discharge Note Provider: Barney Gonzalez Diagnosis: RIGHT HAND PAIN Date of Evaluation: 12/20/20 Date of Discharge: 01/09/21 Treatments to Date: 6 Discharge Status: Achieved Goals Improved Function Independent with HEP Discharge Summary: MS ALBERTO HAS DONE VERY WELL WITH HER OT TREATMENT SESSIONS. SHE WAS MOTIVATED AND COMPLIANT WITH HER HEP, AND IMPROVED HER STRENGTH AND COORDINATION DURING HER COURSE OF OT. SHE HAS BEEN ABLE TO WEAN FROM HER THUMB SPICA SPLINT. SHE REPORTS ZERO TO LOW PAIN IN HER DOMINANT RUE WHILE AT REST AND WITH COMPLETION OF IADLs. NO FURTHER OT SERVICES WARRANTED AT THIS TIME. D/C OT. Electronically Signed By: VANE CHICAS/Jazmin Reviewed/agree with student documentation: N/A Therapist: Please Sign and return to therapist, thank you for your referral.
== END 2021-01-09 13:00 | disposition home or self-care (01) ==
LOC: HO.OT 12:30
PROVIDERS: PCP Internal Medicine; Visit Provider Student in an Organized Health Care Education/Training Program
DX: M79.641 Pain in right hand (principal)
CPT/HCPCS: 97033; 97035; 97110; 97166; 97530

== ENCOUNTER → 2021-01-10 08:58 | Outpatient (BNVA) | payer MEDICARE, SELFPAY | PROVIDERS: PCP Internal Medicine; Visit Provider Student in an Organized Health Care Education/Training Program | DX: M79.641 Pain in right hand (principal); M79.642 Pain in left hand | CPT/HCPCS: 99212 ==

== ENCOUNTER 2021-01-17 11:46 | Day surgery (SDC) | payer MEDICARE, SELFPAY ==
[2021-01-10 15:26] VITALS: BMI 36.4
--- NOTE | 2021-01-16 09:09 | HO.ANESPROP2 ---
Documented by User: Hanane Usney 01/16/21 09:11 HPI - Anesthesia Eval Consult details Narrative: 75yo F for Upper Endoscopy afib, no anticoag. GI eval bleeding risk before anticoag rx'd d/t h/o GIB. *Multiple Med Allergies* PMFSH Active Problems Active Problems: All Active Problems (Updated 01/11/21 @ 14:03 by Ayla Hardin) Bilateral hand pain (Acute) De Quervain's tenosynovitis, right (Acute) Essential hypertension (Acute) Hemorrhage of gastrointestinal tract, unspecified (Acute) Aortic calcification (Acute) Duodenal ulcer (Acute) PAF (paroxysmal atrial fibrillation) (Acute) Past Medical History Medical History Aortic calcification Duodenal ulcer Essential hypertension Hemorrhage of gastrointestinal tract, unspecified PAF (paroxysmal atrial fibrillation) Sleep apnea Family History Family History Father No problems noted. Mother No problems noted. Surgical History Surgical History H/O colonoscopy History of colectomy History of esophagogastroduodenoscopy (EGD) History of foot surgery History of hysterectomy History of parathyroidectomy Social History Social History Patient Tobacco Use Status: Former Tobacco user Tobacco use type: Cigarette Cigarettes Per Day: 20 Years Smoked: 30 Advance Directives Information Provided: No Nutrition Risks: Surgical patient >75years Meds Allergies Allergy/AdvReac Type Severity Reaction Status Date / Time irbesartan [IRBESARTAN] Allergy Intermediate RASH Verified 01/17/21 12:06 latex [LATEX] Allergy Intermediate RASH Verified 01/17/21 12:06 NSAIDS (Non-Steroidal Allergy Intermediate STAGE 3 Verified 01/17/21 12:06 Anti-Inflamma KIDNEY [NSAIDS (NON-STEROIDAL DISEASE ANTI-INFLAMMA] sulfamethoxazole Allergy Intermediate RASH Verified 01/17/21 12:06 [From BACTRIM] trimethoprim [From BACTRIM] Allergy Intermediate RASH Verified 01/17/21 12:06 valsartan [From DIOVAN] Allergy Intermediate HIVE,DIFFICULTY Verified 01/17/21 12:06 BREATHING lisinopril [LISINOPRIL] Allergy Unknown PER MD Verified 01/17/21 12:06 losartan [LOSARTAN] Allergy Unknown PER MD Verified 01/17/21 12:06 Opeapmd-Wyf-Gjp Reductase Allergy Unknown PER MD Verified 01/17/21 12:06 Inhibitor [[id number]-VLE-LCM REDUCTASE INHIBITOR] meperidine [From Demerol] AdvReac Mild VOMITING Verified 01/17/21 12:06 BANDAIDS Allergy Unknown RASH Uncoded 12/13/20 11:17 ALL NARCOTICS AdvReac Unknown NAUSEA AND Uncoded 12/13/20 11:17 VOMITING Home Medications Medication Instructions Recorded Confirmed Last Taken Type ezetimibe 10 mg tablet 10 mg PO DAILY 10/22/20 01/10/21 Unknown History multivitamin 1 tab PO DAILY 10/22/20 01/10/21 Unknown History omeprazole 20 mg capsule,delayed 20 mg PO DAILY 10/22/20 01/10/21 Unknown History release rosuvastatin 10 mg tablet 10 mg PO BEDTIME 10/22/20 01/10/21 Unknown History spironolactone 25 1 tab PO DAILY 10/22/20 01/10/21 Unknown History mg-hydrochlorothiazide 25 mg tablet verapamil 200 mg capsule 24hr 200 mg PO DAILY 10/22/20 01/10/[address],ext.release Lactobacillus acidophilus 1 10 mg PO BID cap 12/04/20 01/10/21 Unknown History billion cell capsule (Probiotic Gold Acidophilus) calcium fructoborate 216 mg tablet 216 mg PO DAILY tab 12/04/20 01/10/21 Unknown History (Move Free Ultra Faster Comfort) cholecalciferol (vitamin D3) 25 25 mcg PO DAILY 12/04/20 01/10/21 Unknown History mcg (1,000 unit) capsule fexofenadine 180 mg tablet 180 mg PO DAILY PRN 12/04/20 01/10/21 Unknown History (Heidi Allergy) krill 1,000 mg-omega-3 230 mg-dha 1 cap PO DAILY 12/04/20 01/10/21 Unknown History 60 io-vvw-wiasdrnwx-astaxan capsule (MegaRed [place]-3 Krill Oil) metoprolol succinate 25 mg 25 mg PO BID tab 12/04/20 01/17/21 01/17/21 06:30 History tablet,extended release 24 hr triamcinolone acetonide 55 mcg 1 spray INTRANASAL DAILY PRN 12/04/20 01/10/21 Unknown History nasal spray aerosol (Nasacort) Exam Exam Date and Time: January 16, 2021 0909 Height,Weight and Vital Signs: Height 5 ft 1 in Weight 87.543 kg Pertinent Lab Results Pertinent Lab Results: Laboratory Tests 12/04/20 12/04/20 15:16 15:16 WBC 5.8 Hgb 13.4 Hct 43.1 Plt Count 246 Sodium 139 Potassium 4.1 Chloride 103 Carbon Dioxide 29 BUN 29 H Creatinine 1.39 Narrative Narrative: EKG 11/2020 Vent. Rate : 109 BPM ? ? Atrial Rate : 088 BPM ?? P-R Int : 000 ms? QRS Dur : 076 ms ? ? QT Int : 342 ms ? ? ? P-R-T Axes : 000 -15 -17 degrees ?? QTc Int : 460 ms ? Atrial fibrillation with rapid ventricular response Inferior infarct , age undetermined - cannot exclude Abnormal ECG When compared with ECG of 24-JAN-2019 08:42, Rhythm change ECHO 11/2020 Conclusions: -? 1. Normal LV systolic function with grade 2 diastolic ? dysfunction? 2. Mildly dilatedleft atrium ? 3. Normal cardiac valvular Doppler ? 4. Systolic pressure ? 5. No pericardial effusion ?? Assessment and Plan Assessment Anesthesia Assessment: Chart Reviewed Documented by User: Wong Mcgrath 01/17/21 12:14 PMFSH Past Medical History Medical History Aortic calcification Duodenal ulcer Essential hypertension Hemorrhage of gastrointestinal tract, unspecified PAF (paroxysmal atrial fibrillation) Sleep apnea Cognitive capacity: AAO X3 Functional capacity: independent ambulation Family History Family History Father No problems noted. Mother No problems noted. Family history of problems with anesthesia: No Surgical History Surgical History H/O colonoscopy History of colectomy History of esophagogastroduodenoscopy (EGD) History of foot surgery History of hysterectomy History of parathyroidectomy History of Problems with Anesthesia: No Social History Social History Patient Tobacco Use Status: Former Tobacco user Tobacco use type: Cigarette Cigarettes Per Day: 20 Years Smoked: 30 Advance Directives Information Provided: No Nutrition Risks: Surgical patient >75years Meds Allergies Allergy/AdvReac Type Severity Reaction Status Date / Time irbesartan [IRBESARTAN] Allergy Intermediate RASH Verified 01/17/21 12:06 latex [LATEX] Allergy Intermediate RASH Verified 01/17/21 12:06 NSAIDS (Non-Steroidal Allergy Intermediate STAGE 3 Verified 01/17/21 12:06 Anti-Inflamma KIDNEY [NSAIDS (NON-STEROIDAL DISEASE ANTI-INFLAMMA] sulfamethoxazole Allergy Intermediate RASH Verified 01/17/21 12:06 [From BACTRIM] trimethoprim [From BACTRIM] Allergy Intermediate RASH Verified 01/17/21 12:06 valsartan [From DIOVAN] Allergy Intermediate HIVE,DIFFICULTY Verified 01/17/21 12:06 BREATHING lisinopril [LISINOPRIL] Allergy Unknown PER MD Verified 01/17/21 12:06 losartan [LOSARTAN] Allergy Unknown PER MD Verified 01/17/21 12:06 Bxndomk-Luc-Ibo Reductase Allergy Unknown PER MD Verified 01/17/21 12:06 Inhibitor [JWRVWYX-LVO-ECS REDUCTASE INHIBITOR] meperidine [From Demerol] AdvReac Mild VOMITING Verified 01/17/21 12:06 BANDAIDS Allergy Unknown RASH Uncoded 12/13/20 11:17 ALL NARCOTICS AdvReac Unknown NAUSEA AND Uncoded 12/13/20 11:17 VOMITING Home Medications Medication Instructions Recorded Confirmed Last Taken Type ezetimibe 10 mg tablet 10 mg PO DAILY 10/22/20 01/10/21 Unknown History multivitamin 1 tab PO DAILY 10/22/20 01/10/21 Unknown History omeprazole 20 mg capsule,delayed 20 mg PO DAILY 10/22/20 01/10/21 Unknown History release rosuvastatin 10 mg tablet 10 mg PO BEDTIME 10/22/20 01/10/21 Unknown History spironolactone 25 1 tab PO DAILY 10/22/20 01/10/21 Unknown History mg-hydrochlorothiazide 25 mg tablet verapamil 200 mg capsule 24hr 200 mg PO DAILY 10/22/20 01/10/[address],ext.release Lactobacillus acidophilus 1 10 mg PO BID cap 12/04/20 01/10/21 Unknown History billion cell capsule (Probiotic Gold Acidophilus) calcium fructoborate 216 mg tablet 216 mg PO DAILY tab 12/04/20 01/10/21 Unknown History (Move Free Ultra Faster Comfort) cholecalciferol (vitamin D3) 25 25 mcg PO DAILY 12/04/20 01/10/21 Unknown History mcg (1,000 unit) capsule fexofenadine 180 mg tablet 180 mg PO DAILY PRN 12/04/20 01/10/21 Unknown History (Heidi Allergy) krill 1,000 mg-omega-3 230 mg-dha 1 cap PO DAILY 12/04/20 01/10/21 Unknown History 60 kr-fnm-ifmjmgcjn-astaxan capsule (MegaRed [place]-3 Krill Oil) metoprolol succinate 25 mg 25 mg PO BID tab 12/04/20 01/17/21 01/17/21 06:30 History tablet,extended release 24 hr triamcinolone acetonide 55 mcg 1 spray INTRANASAL DAILY PRN 12/04/20 01/10/21 Unknown History nasal spray aerosol (Nasacort) Exam Airway Mallampati Class: II TM Dist: >3cm Neck ROM: Full Loose/Missing/Broken Teeth: Yes (multiple missing, chipped very poor dentition) Heart: [id number] Lungs: cta b/l Assessment and Plan Assessment Anesthesia Assessment: Anesthesia Plan Discussed and PAT Visit Final Anesthetic Review Family History of Problems with Anesthesia: No History of Problems with Anesthesia: No NPO: Yes ASA Class: III Final Preanesthetic Review: No Changes in Pt Med Stat, Meds/Allgs Chart Reviewed, Consent Obtained/Reviewed and Anes Risks/Benef Reviewed Patient Risk: Intermediate Procedure Risk: Low Assessment/Block/Sedation in SS: Assess/Block/Sedation-SS Anesthetic Plan Anesthetic Plan: MAC: and Agree w/ Assess. and Plan Disposition: Standard PACU
[2021-01-17 12:06] VITALS: BP 145/76; PULSE 65; RESP 16; TEMP 36.3; O2SAT 98
--- NOTE | 2021-01-17 12:08 | P.HPSUR_ITS ---
Pre-Procedural Eval Section A Date of Service: 01/17/21 Section B Chief Complaint: duodenal ulcer Relevant Family History (Specify if Yes): No Relevant Social History: None (ex smoker) Present Medications: see Short Stay Collaborative assessment Medical History: Significant History (Aortic calcification Duodenal ulcer Essential hypertension Hemorrhage of gastrointestinal tract, unspecified PAF (paroxysmal atrial fibrillation) Sleep apnea) History of Previous Operations: Relevant previous surgery/procedure and date(s) (H/O colonoscopy History of colectomy History of esophagogastroduodenoscopy (EGD) History of foot surgery History of hysterectomy History of parathyroidectomy) Allergies: Allergies Allergy/AdvReac Type Severity Reaction Status Date / Time irbesartan [IRBESARTAN] Allergy Intermediate RASH Verified 01/17/21 12:06 latex [LATEX] Allergy Intermediate RASH Verified 01/17/21 12:06 NSAIDS (Non-Steroidal Allergy Intermediate STAGE 3 Verified 01/17/21 12:06 Anti-Inflamma KIDNEY [NSAIDS (NON-STEROIDAL DISEASE ANTI-INFLAMMA] sulfamethoxazole Allergy Intermediate RASH Verified 01/17/21 12:06 [From BACTRIM] trimethoprim [From BACTRIM] Allergy Intermediate RASH Verified 01/17/21 12:06 valsartan [From DIOVAN] Allergy Intermediate HIVE,DIFFICULTY Verified 01/17/21 12:06 BREATHING lisinopril [LISINOPRIL] Allergy Unknown PER MD Verified 01/17/21 12:06 losartan [LOSARTAN] Allergy Unknown PER MD Verified 01/17/21 12:06 Kksnguj-Gyf-Erx Reductase Allergy Unknown PER MD Verified 01/17/21 12:06 Inhibitor [OWUFTRO-PNM-KRS REDUCTASE INHIBITOR] meperidine [From Demerol] AdvReac Mild VOMITING Verified 01/17/21 12:06 BANDAIDS Allergy Unknown RASH Uncoded 12/13/20 11:17 ALL NARCOTICS AdvReac Unknown NAUSEA AND Uncoded 12/13/20 11:17 VOMITING Review of Systems Sugical H&P ROS: Negative: Constitution, Cardiovascular, Respiratory, Neurological, Psychiatric, Hem-Onc, Allergic/Immunologic, Gastrointestinal, Genitourinary, Musculoskeletal, Integumentary, Endocrine and Eyes/Ears /Nose/Throat Exam Surgical H&P Exam: Normal: HEENT, Normal: Heart, Normal: Lungs, Normal: Extremities, Normal: Abdomen, Normal: Skin and Normal: Neurological Plan Diagnosis/Plan: Unchanged I have reviewed the history and physical and performed a pertinent physical examination on my patient. No changes have occurred unless specified.
[2021-01-17] MEDS: Lactated Ringers 1,000 ML 50 ML IVCONT (12:21)
--- NOTE | 2021-01-17 12:40 | P.BOP_ITS ---
Brief Operative Note Date of Service: 01/17/21 Pre-op diagnosis: hx of duodenal ulcer, satiety Post-op diagnosis: same Procedure: see op note Surgeon: Kaleb Pichardo MD Anesthesia: MAC Was an Histotechnologist used for this Procedure?: No Estimated blood loss (mL): 0 Condition: stable Disposition: PACU
--- NOTE | 2021-01-17 12:40 | W.PM.OPN ---
Operative Note Operative Note Date of Service: 01/17/21 Narrative: Procedure Description: EGD FLEXIBLE TRANSORAL UPPER GASTROINTESTINAL ENDOSCOPY UPPER ENDOSCOPY Consent: Indications for the procedure and potential complications of bleeding, perforation, reaction to medications and missed diagnosis were discussed with the patient and informed consent was obtained. Instrument: Olympus GIF H 190 J mid size upper endoscope Monitoring: Vital signs and clinical assessment, continuous EKG monitoring, Pulse oximetry, Carbon Dioxide monitoring and blood pressure monitoring were done throughout the procedure. Procedure: The patient was placed in the left lateral decubitis position and pre-procedure medications were administered and a bite block was placed. The endoscope was inserted into the mouth and advanced under direct vision to the third part of duodenum. A careful inspection was made as the upper endoscope was withdrawn including a retroflexed examination of the proximal stomach; Findings and interventions are described below. Findings: Larynx:normal Esophagus: GE junction at 40 cm, diaphragm hiatus at 40 cm, mild esophagitis around the GJ rim, balloon dilation done to 20 mm at LES and 19 mm at UES, no tears seen, Stomach: Mild antral erythema. 10 mm polyp at the mid body of stomach with ulcerated top, removed wtih cold snare. Due to bleeding a clip ws applied with good hemostasis. Grade 2 flap valve on retroflexed examination of the cardia. Pyloric outlet dilated to 20 mm, no tears seen Duodenum: Normal bulb and descending duodenum Intervention: polypectomy, dilation Impression/Findings: gastritis esophagitis gastric polyp PLAN: await results of path prior ulcer has healed, ok to resume anti coagulation if sx persist then GES to r/o gastroparesis
[2021-01-17 12:45] VITALS: BP 100/52; PULSE 63; RESP 18; TEMP 36.1; O2SAT 100
[2021-01-17 12:57] VITALS: BP 129/63; PULSE 60; RESP 18; TEMP 36.2; O2SAT 99
== END 2021-01-17 13:45 | disposition home or self-care (01) ==
PROVIDERS: PCP Internal Medicine; Visit Provider Internal Medicine Gastroenterology
PROC: 0DJ08ZZ Inspection of Upper Intestinal Tract, Via Natural or Artificial Opening Endoscopic (ICD-10-PCS; CPT 43235; principal; 2021-01-17 12:50)
DX: K26.9 Duodenal ulcer, unspecified as acute or chronic, without hemorrhage or perforation (principal); K20.80 Other esophagitis without bleeding; K31.7 Polyp of stomach and duodenum; K29.70 Gastritis, unspecified, without bleeding; K44.9 Diaphragmatic hernia without obstruction or gangrene; I48.0 Paroxysmal atrial fibrillation; Z79.01 Long term (current) use of anticoagulants; I10 Essential (primary) hypertension; G47.33 Obstructive sleep apnea (adult) (pediatric); Z99.89 Dependence on other enabling machines and devices; Z90.49 Acquired absence of other specified parts of digestive tract; Z87.891 Personal history of nicotine dependence; Z91.040 Latex allergy status; Z88.2 Allergy status to sulfonamides; Z88.8 Allergy status to other drugs, medicaments and biological substances
CPT/HCPCS: 43251; 43245; 88305; 88342; C1726

== ENCOUNTER → 2021-02-05 13:08 | Outpatient (BNVA) | payer MEDICARE, SELFPAY | PROVIDERS: PCP Internal Medicine; Referring Provider Internal Medicine; Visit Provider Internal Medicine | DX: I48.0 Paroxysmal atrial fibrillation (principal); I70.0 Atherosclerosis of aorta; I10 Essential (primary) hypertension; K26.4 Chronic or unspecified duodenal ulcer with hemorrhage; Z79.899 Other long term (current) drug therapy | CPT/HCPCS: 99212 ==

== ENCOUNTER → 2021-05-03 10:27 | Outpatient (BNVA) | payer MEDICARE, SELFPAY | PROVIDERS: PCP Internal Medicine; Referring Provider Internal Medicine; Visit Provider Internal Medicine Gastroenterology | DX: K46.9 Unspecified abdominal hernia without obstruction or gangrene (principal); K26.9 Duodenal ulcer, unspecified as acute or chronic, without hemorrhage or perforation; K21.9 Gastro-esophageal reflux disease without esophagitis; N32.1 Vesicointestinal fistula; I48.0 Paroxysmal atrial fibrillation; I10 Essential (primary) hypertension; E78.5 Hyperlipidemia, unspecified; G47.33 Obstructive sleep apnea (adult) (pediatric); Z87.891 Personal history of nicotine dependence; Z99.89 Dependence on other enabling machines and devices; Z79.899 Other long term (current) drug therapy | CPT/HCPCS: 99212 ==

== ENCOUNTER → 2021-06-24 12:25 | Outpatient (BNVA) | payer MEDICARE, SELFPAY | PROVIDERS: PCP Internal Medicine; Referring Provider Internal Medicine; Visit Provider Internal Medicine | DX: I48.0 Paroxysmal atrial fibrillation (principal); I70.0 Atherosclerosis of aorta; I10 Essential (primary) hypertension; K26.4 Chronic or unspecified duodenal ulcer with hemorrhage | CPT/HCPCS: 99212 ==

== ENCOUNTER → 2021-06-27 13:22 | Outpatient (BNVA) | payer MEDICARE, SELFPAY | PROVIDERS: PCP Internal Medicine; Referring Provider Internal Medicine; Visit Provider Surgery | DX: K46.9 Unspecified abdominal hernia without obstruction or gangrene (principal) | CPT/HCPCS: 99202 ==

== ENCOUNTER 2021-08-16 10:59 | Outpatient (REF) | payer MEDICARE, SELFPAY ==
--- NOTE | ~2021-08-16 | MR_ITS ---
EXAMINATION: MRI LEFT SHOULDER WITHOUT CONTRAST CLINICAL INFORMATION: Decreased range of motion. Rule out tear. Shoulder pain. COMPARISON: 12/17/2016 TECHNIQUE: MR images of the shoulder were obtained on a 1.5 Carol high-field strength scanner without intravenous contrast material. FINDINGS: ROTATOR CUFF: As previously suspected, there is bursal surface partial tearing of the supraspinatus tendon at the insertion over an area measuring 1.5 cm AP. As seen on image 03/08 of series 6, this involves the majority of the tendon thickness with retraction of the bursal surface fibers up to 9 mm and a very thin band of residual intact articular sided fibers. Full-thickness perforation is possible. Of note, the defect is filled with fat, suggesting that this is a more chronic tear. Mild associated supraspinatus muscle atrophy and grade 2 fatty replacement have progressed as compared to prior. Mild tendinosis again seen at the infraspinatus with similar bursal surface attenuation of the more posterior fibers over an area measuring 1.3 cm AP. Mild atrophy and fatty replacement at the infraspinatus tendon have progressed as compared to prior. Teres minor tendon is intact. As on the prior study, there is subscapularis tendinosis with undersurface fraying, but no discrete tears. Mild atrophy and fatty replacement are also present at the subscapularis and teres minor and are more pronounced as compared to prior. BICEPS: Tendinosis is evident at the proximal intra-articular extent without a discrete tear. CORACOACROMIAL ARCH: The undersurface of the acromion is flat with no subacromial spur. Moderate acromioclavicular osteoarthritis. No significant subacromial-subdeltoid bursal fluid. LABRUM AND CAPSULE: The glenoid labrum is diffusely diminutive and macerated with significant loss of labral tissue. Axillary pouch is intact. GLENOHUMERAL JOINT/MARROW: Vubspxom-tv-wyeiia osteoarthritis of the glenohumeral joint is characterized by nonuniform articular cartilage loss, articular cortical irregularity, subcortical cystic change, subcortical edema, and large marginal osteophytes. Posterior subluxation of the humeral head relative to the glenoid is similar to prior. Trace joint effusion with mild intra-articular debris. MR/MR shoulder LT wo con IMPRESSION: Kaeogkkz-ia-ijeyfd glenohumeral osteoarthritis with diffuse labral degeneration. A 1.5 cm (AP) chronic bursal-sided partial tear of the supraspinatus tendon and a 1.3 cm chronic bursal surface tear of the posterior fibers of the infraspinatus tendon are not appreciably changed as compared to prior. Mild diffuse muscle atrophy and grade 2 fatty replacement have progressed as compared to prior. Mild subscapularis and biceps tendinosis. Moderate acromioclavicular osteoarthritis.
== END 2021-08-16 11:00 | disposition home or self-care (01) ==
LOC: HO.MRI 10:59
PROVIDERS: Visit Provider Internal Medicine
DX: M25.512 Pain in left shoulder (principal); R68.89 Other general symptoms and signs
CPT/HCPCS: 73221

== ENCOUNTER 2021-09-03 10:49 | Outpatient (REF) | payer MEDICARE, SELFPAY ==
--- NOTE | ~2021-09-03 | MM_ITS ---
EXAMINATION: MM SCREENING DIGITAL BREAST TOMOSYNTHESIS, BILATERAL CLINICAL INFORMATION: Screening. Asymptomatic. The lifetime risk of breast cancer based on the Tyrer-Cuzick Model is 0.9%. COMPARISON: Mammography: August 28, 2020 and studies dating back to March 04, 2012 TECHNIQUE: Digital breast tomosynthesis is performed in both the craniocaudal and mediolateral oblique views along with computer-aided detection (CAD). Synthesized 2D images are generated from the tomosynthesis. FINDINGS: There are scattered areas of fibroglandular density (ACR BI-RADS breast composition Category b). There are no significant masses, abnormal calcifications, or other abnormalities. MM/MM tomosynthesis screening BI IMPRESSION: There are no significant changes from prior study. ASSESSMENT: BI-RADS 1: Negative RECOMMENDATION: Routine annual mammography screening. This patient's information was entered into a reminder system with a target due date for their next mammogram.
== END 2021-09-03 10:50 | disposition home or self-care (01) ==
LOC: HO.MAMMO 10:49
PROVIDERS: PCP Internal Medicine; Visit Provider Internal Medicine
DX: Z12.31 Encounter for screening mammogram for malignant neoplasm of breast (principal)
CPT/HCPCS: 77063; 77067

== ENCOUNTER 2021-09-19 10:24 | Outpatient (REF) | payer MEDICARE, SELFPAY ==
--- NOTE | 2021-09-19 15:40 | MHC.AU.AHA ---
Adult Audiological Evaluation Date of Visit: 09/19/21 Reason for Appointment: Audiological re-evaluation due to concern for decreased hearing. Rosenda has a known asymmetrical sensorineural hearing loss, right ear hearing worse than the left. She does not have any speech understanding abilities in the right ear. She uses a BiCROS hearing aid system. Rosenda notes increased difficulty understanding speech in most situations and has particular difficulty hearing aid sabianist. She denies any significant changes to her medical history. Previous Hearing Test Results: [facility] [place], 08/21/2020- Severe to profound sensorineural hearing loss in the right ear. Moderately-severe sensorineural hearing loss in the left ear. Ear History: Bothersome Tinnitus/Ringing/Noises in Ears: Both ears, right ear greater than left Medical History: Medical History: High Blood Pressure, High Cholesterol Allergies: Statins, Irbesartan, Diovan, narcotic pain medications Medication List: Metoprolol, Eliquis, Ezetimibe, Spirono/HCTZ, Verapamil, Rosuvastatin Calcium, Vitamins and supplements, Heidi and Nasacort as needed. Hearing Instrument History- Right Ear: Joinery Factory Worker: Phonak Model: CROS H2O Serial Number: [id number] Battery Size: 13 Repair Warranty: Dispensed By: [facility] Date of Fittin10/12/2013 Hearing Instrument History- Left Ear: Joinery Factory Worker: Phonak Model: Bolero Q 50-M13 Serial Number: [id number] Battery Size: 13 Warranty: Dispensed By: [facility] Date of Fittin10/12/2013 Otoscopy: Right Ear: Unremarkable Left Ear: Unremarkable Tympanometry: Tympanometry performed due to: History of middle ear dysfunction Right Ear: Normal Middle Ear System (Type A) Left Ear: Normal Middle Ear System (Type A) Hearing Evaluation: Transducer(s) Used: Insert Earphones, Bone Conduction Method: Conventional Audiometry Stimuli Used: Pure Tones Right Ear: Description of Hearing: Moderately-severe sloping to profound sensorineural hearing loss from 250-8000 Hz. Hearing in the right ear is worse than the left from 10-50+ dBHL from 500-8000 Hz. Left Ear: Description of Hearing: Moderate to moderately-severe sensorineural hearing loss from 250-8000 Hz. Speech Recognition Threshold (SRT): Method Used: Monitored Live Voice Stimuli Used: Spondee Words Right Ear: Could not test- no speech understanding abilities in the right ear. Left Ear: 55 dBHL Word Discrimination: Method: Recorded Lists Word Lists Used: NU-6 Right Ear: Could not test- no speech understanding abilities in the right ear. Left Ear: 76% at 85 dBHL Comparison: Compared to the most recent evaluation: Hearing is stable. Recommendations: Audiological re-evaluation in one year. Hearing aid maintenance performed today. Hearing aid(s) reprogrammed with updated test results. Given the age of her current hearing aids, new hearing aids with updated technology are recommended. Set Rosenda up with a set of demo BiCROS hearing aids to try for a week to see if she notices a significant improvement in her hearing. Diagnosis: Primary Diagnosis: H90.3 Bilateral Sensorineural Hearing Loss Services Performed: Comprehensive Audiological Evaluation (CPT 88078) Tympanometry (CPT 30664) Signature: Provider: Flaquito Diana, CCC-A
== END 2021-09-19 10:25 | disposition home or self-care (01) ==
LOC: HO.SH 10:24
PROVIDERS: Visit Provider Internal Medicine
DX: Z01.118 Encounter for examination of ears and hearing with other abnormal findings (principal); H90.3 Sensorineural hearing loss, bilateral
CPT/HCPCS: 92557; 92567

== ENCOUNTER 2021-10-02 11:30 | Outpatient (REF) | payer SELFPAY ==
--- NOTE | 2021-10-02 13:18 | MHC.AU.HAS ---
Hearing Aid Evaluation Date of Visit: 10/02/21 Historical Information: Description of Hearing: Moderate to moderately-severe SNHL in the left ear. Moderately-severe to profound SNHL in the right ear. No speech understanding abilities in the right ear. Current personal amplification information, if applicable: 2013 Phonak Fredis Q50-M13 + CROS H2O Summary: Patient was seen for an HAE after demoing new Phonak CROS aids for the past two weeks. She notes in improvement in her overall listening and has noticed a lot of environmental sounds that she wasn't hearing well before. She has decided she would like to proceed with purchase of new hearing aids. She would like to remain with entry-level technology and standard batteries. Discussed insurance and advised that we cannot directly bill Medicare/[employer] and that she would have to request reimbursement through her insurance. She agreed and understood. Paid $350 down payment today. Hearing Aid Prescription: Based on the individual?s shared listening needs, communication environments, dexterity, desire for connectivity, and personal preferences, the following prescription for amplification has been made: Right ear: Wood And Hardware Outfitter: Phonak Model: CROS P-13 Battery Size: 13 Color: P6- Silver Caceres Drywall Finisher Foreman: Size 2 CROS wire Type of Dome: Small open Left ear: Wood And Hardware Outfitter: Phonak Model: Audeo P50-13T Battery Size: 13 Color: P6- Silver Caceres Drywall Finisher Foreman: Size 2 M Type of Dome: Vented Plan of Care: Medical Clearance to be requested from PCP/ENT. Hearing aids ordered today. Hearing Instrument Fitting to be scheduled when materials arrive. Primary Diagnosis: H90.3 Bilateral Sensorineural Hearing Loss Signature: Provider: Flaquito Diana, [facility]
--- NOTE | 2021-10-02 13:20 | MHC.AU.MED ---
Medical Clearance for Hearing Instrumentation Date: 10/02/21 Patient Name: Rosenda Butler Date of : 1945 Referring Provider: Ángel Multani MD We have seen your patient on 10/02/21 and have determined that they are a candidate for amplification (See accompanying report). Specifically, they would benefit from: Hearing aid use in both ears There is a statute that addresses Medical Evaluation Requirements prior to fitting a patient with a hearing aid. According to [place] statute [facility] CMR:6.03(1), (a) General. Except as provided in 265 CMR 6.03(1)(b), a labor arbitrator hearing office shall not sell a hearing aid unless the prospective user has presented to the labor arbitrator hearing office a written statement signed by a licensed physician that states that the patient's hearing loss has been medically evaluated and the patient may be considered a candidate for a hearing aid. The medical evaluation must have taken place within the preceding six months. Please note: Due to the [place] Statute referenced above, we cannot accept a signature other than that of a licensed physician. PROCESS IMPROVEMENT ENGINEER and PA signatures cannot be accepted. I am in agreement with the above recommendation. There is no medical contraindication for hearing instrumentation. Physician Signature Date Physician Name (Printed)
== END 2021-10-02 11:31 | disposition home or self-care (01) ==
LOC: HO.HAP 11:30
PROVIDERS: Visit Provider Internal Medicine
DX: Z46.1 Encounter for fitting and adjustment of hearing aid (principal); H90.3 Sensorineural hearing loss, bilateral
CPT/HCPCS: 92591

== ENCOUNTER 2021-10-30 14:28 | Outpatient (REF) | payer SELFPAY | END 2021-10-30 14:29 | disposition home or self-care (01) | LOC: HO.HAP 14:28 | PROVIDERS: Visit Provider Internal Medicine | DX: Z46.1 Encounter for fitting and adjustment of hearing aid (principal); H90.3 Sensorineural hearing loss, bilateral | CPT/HCPCS: V5221 ==

== ENCOUNTER 2021-11-18 10:32 | Outpatient (REF) | payer SELFPAY ==
--- NOTE | 2021-11-18 12:07 | MHC.AU.HFU ---
Hearing Instrument Follow-Up- Binaural Date of Visit: 11/18/21 Right Ear: Youth Teacher: Phonak Model: CROS P-13 Serial Number: [id number] Repair Warranty: 08/02/2024 Loss and Damage Warranty: 08/02/2024 Battery Size: 13 Color: P6- Silver Caceres Education Department Registrar: Size 2 CROS wire Type of Dome: Small open Type of Wax Guard: Cerushield Dispensed By: [facility] Date of Fittin10/30/2021 Left Ear: Youth Teacher: Phonak Model: Audeo P50-13T Serial Number: [id number] Repair Warranty: 08/02/2024 Loss and Damage Warranty: 08/02/2024 Battery Size: 13 Color: P6- Silver Caceres Education Department Registrar: Size 2 M Type of Dome: Medium Vented Type of Wax Guard: Cerushield Dispensed By: [facility] Date of Fittin10/30/2021 Follow-Up Summary: Patient has overall been doing well with the new CROS system and wants to keep them. Has been having trouble with the left ear frequently blocking up which improves when Rosenda pulls the dome slightly out of the canal. She also reports the batteries have not been lasting as long as when she had the loaner aids. Last, some sounds when in the car are louder compared to old aids. She loves the bluetooth feature but is not able to answer the cell phone when tapping the aid. Changed to medium vented dome with patient reporting improvement while in office. Datalogging shows 19 hours of daily wearing time and discussed how the long wearing hours and bluetooth use will drain the battery. Also discussed how the Duracell batteries she has been using may have adhesive from the tab and she should wipe the flat part of the batteries and wait 2 minutes before inserting battery in the aids. Did not make any programming changes as changing the dome may make a difference. Practiced answering the cell phone by pressing the volume control. Recommendations:Hearing instrument follow-up or maintenance as needed. Please contact our clinic with any questions or concerns. Diagnosis Code(s):Primary Diagnosis: H90.3 Bilateral Sensorineural Hearing Loss Signature:Provider: Flaquito Fuller
== END 2021-11-18 10:33 | disposition home or self-care (01) ==
LOC: HO.HAP 10:32
PROVIDERS: Visit Provider Internal Medicine
DX: Z13.89 Encounter for screening for other disorder (principal)

== ENCOUNTER 2021-12-03 14:51 | Outpatient (REF) | payer MEDICARE, SELFPAY ==
[2021-12-03 16:30] LABS: Hematocrit 42.8 % (37.0-47.0); Mean Corpuscular HGB Conc 30.4 g/dl (31.0-35.0); Mean Corpuscular Hemoglobin 25.5 pg (27.0-33.0); Mean Corpuscular Volume 83.9 fL (80.0-98.0); Mean Platelet Volume 9.7 fL (9.4-12.3); Platelet Count 302 X10*3/uL (160-400); Red Cell Distribution Width 15.9 % (11.0-16.0); White Blood Count 5.3 X10*3/uL (4.8-10.8)
[2021-12-03 16:41] LABS: Anion Gap 13 (12-20); Blood Urea Nitrogen 24 mg/dL (9-16); Carbon Dioxide 27 mmol/L (22-29); Chloride 102 mmol/L (96-108); Estimated Glomerular Filt Rate 35; Potassium 4.1 mmol/L (3.3-5.1); Sodium 138 mmol/L (135-145)
[2021-12-03 16:48] LABS: Creatinine Urine 49.59 mg/dL; Protein/Creatinine Ratio, Ur 0.52 (<0.2); Total Protein Urine Random 26 mg/dL (<12)
== END 2021-12-03 14:52 | disposition home or self-care (01) ==
LOC: HO.HMGCLDS 14:51
PROVIDERS: PCP Internal Medicine; Visit Provider Internal Medicine Hypertension Specialist
DX: I12.9 Hypertensive chronic kidney disease with stage 1 through stage 4 chronic kidney disease, or unspecified chronic kidney disease (principal); N18.9 Chronic kidney disease, unspecified
CPT/HCPCS: 36415; 80051; 82310; 82565; 84156; 84520; 85027

== ENCOUNTER → 2021-12-27 11:50 | Outpatient (BNVA) | payer MEDICARE, SELFPAY | PROVIDERS: PCP Internal Medicine; Visit Provider Surgery | DX: K46.9 Unspecified abdominal hernia without obstruction or gangrene (principal) | CPT/HCPCS: 99212 ==

== ENCOUNTER → 2022-01-09 08:57 | Outpatient (BNVA) | payer MEDICARE, SELFPAY | PROVIDERS: PCP Internal Medicine; Visit Provider Nurse Practitioner Family | DX: M79.641 Pain in right hand (principal); M79.642 Pain in left hand; R21 Rash and other nonspecific skin eruption | CPT/HCPCS: Q3014 ==

== ENCOUNTER 2022-05-13 10:46 | Outpatient (REF) | payer MEDICARE, SELFPAY ==
[2022-05-13 14:26] LABS: Anion Gap 15 (12-20); Blood Urea Nitrogen 26 mg/dL (9-16); Calcium 9.9 mg/dL (8.4-10.2); Carbon Dioxide 28 mmol/L (22-29); Chloride 101 mmol/L (96-108); Estimated Glomerular Filt Rate 44; Glucose Random 112 mg/dL (60-115); Potassium 4.1 mmol/L (3.3-5.1); Sodium 140 mmol/L (135-145)
[2022-05-13 14:51] LABS: Creatinine Urine 57.14 mg/dL; Protein/Creatinine Ratio, Ur 0.58 (<0.2); Total Protein Urine Random 33 mg/dL (<12)
== END 2022-05-13 10:47 | disposition home or self-care (01) ==
LOC: HO.HMGCLDS 10:46
PROVIDERS: PCP Internal Medicine; Visit Provider Internal Medicine Hypertension Specialist
DX: N18.32 Chronic kidney disease, stage 3b (principal)
CPT/HCPCS: 36415; 80048; 84156

== ENCOUNTER → 2022-06-24 12:53 | Outpatient (BNVA) | payer MEDICARE, SELFPAY | PROVIDERS: PCP Internal Medicine; Referring Provider Internal Medicine; Visit Provider Internal Medicine | DX: I48.0 Paroxysmal atrial fibrillation (principal); I70.0 Atherosclerosis of aorta; I10 Essential (primary) hypertension; K26.4 Chronic or unspecified duodenal ulcer with hemorrhage; Z79.01 Long term (current) use of anticoagulants; Z79.899 Other long term (current) drug therapy | CPT/HCPCS: 93005; 99212 ==

== ENCOUNTER 2022-09-09 11:02 | Outpatient (REF) | payer MEDICARE, SELFPAY ==
--- NOTE | ~2022-09-09 | MM_ITS ---
EXAMINATION: MM SCREENING DIGITAL BREAST TOMOSYNTHESIS, BILATERAL CLINICAL INFORMATION: Screening. Asymptomatic. The lifetime risk of breast cancer based on the Tyrer-Cuzick Model is 0.6%. COMPARISON: Mammography: September 03, 2021 and studies dating back to March 29, 2018 TECHNIQUE: Digital breast tomosynthesis is performed in both the craniocaudal and mediolateral oblique views along with computer-aided detection (CAD). Synthesized 2D images are generated from the tomosynthesis. FINDINGS: There are scattered areas of fibroglandular density (ACR BI-RADS breast composition Category b). There are no significant masses, abnormal calcifications, or other abnormalities. MM/MM tomosynthesis screening BI IMPRESSION: No significant changes from prior exam. ASSESSMENT: BI-RADS 1: Negative RECOMMENDATION: Routine annual mammography screening. This patient's information was entered into a reminder system with a target due date for their next mammogram.
== END 2022-09-09 11:03 | disposition home or self-care (01) ==
LOC: HO.MAMMO 11:02
PROVIDERS: PCP Internal Medicine; Visit Provider Internal Medicine
DX: Z12.31 Encounter for screening mammogram for malignant neoplasm of breast (principal)
CPT/HCPCS: 77063; 77067

== ENCOUNTER 2022-11-12 09:12 | Outpatient (REF) | payer MEDICARE, SELFPAY ==
[2022-11-12 11:50] LABS: Anion Gap 15 (12-20); Blood Urea Nitrogen 30 mg/dL (9-16); Calcium 9.7 mg/dL (8.4-10.2); Carbon Dioxide 26 mmol/L (22-29); Chloride 103 mmol/L (96-108); Estimated Glomerular Filt Rate 34; Glucose Random 121 mg/dL (60-115); Potassium 4.1 mmol/L (3.3-5.1); Sodium 140 mmol/L (135-145)
== END 2022-11-12 09:13 | disposition home or self-care (01) ==
LOC: HO.HMGCLDS 09:12
PROVIDERS: Visit Provider Internal Medicine Hypertension Specialist
DX: I13.10 Hypertensive heart and chronic kidney disease without heart failure, with stage 1 through stage 4 chronic kidney disease, or unspecified chronic kidney disease (principal); N18.30 Chronic kidney disease, stage 3 unspecified
CPT/HCPCS: 36415; 80048

== ENCOUNTER → 2022-12-11 14:32 | Outpatient (BNVA) | payer MEDICARE, SELFPAY | PROVIDERS: PCP Internal Medicine; Visit Provider Nurse Practitioner Family | DX: I48.0 Paroxysmal atrial fibrillation (principal); R00.1 Bradycardia, unspecified; I12.9 Hypertensive chronic kidney disease with stage 1 through stage 4 chronic kidney disease, or unspecified chronic kidney disease; N18.9 Chronic kidney disease, unspecified; Z79.899 Other long term (current) drug therapy | CPT/HCPCS: 93005; 99212 ==

== ENCOUNTER → 2022-12-26 13:01 | Outpatient (REF) | payer MEDICARE, SELFPAY ==
--- NOTE | 2022-12-26 13:03 | HM_ITS ---
Conclusion: 1. Patient was monitored for total period of 3 days 2. Baseline was normal sinus rhythm with average heart rate of 65 beats per minute 3. Intermittent atrial fibrillation with total burden of 33.5% with longest episode lasting 23 hours and 42 minutes with fastest heart rate of 133 beats per minute 4. No significant greater than 3 seconds noted, 1 pause of 2.51 seconds noted at about 02:00 on day 2 5. Occasional PACs noted 6. Patient reported 3 events of fluttering that correlated with atrial fibrillation. MTDD
== END ==
LOC: HO.CARD 13:01
PROVIDERS: Visit Provider Nurse Practitioner Family
DX: I48.0 Paroxysmal atrial fibrillation (principal)
CPT/HCPCS: 93242

== ENCOUNTER → 2022-12-26 13:03 | Outpatient (BNV) | payer MEDICARE, SELFPAY | PROVIDERS: Visit Provider Internal Medicine Cardiovascular Disease | DX: I48.0 Paroxysmal atrial fibrillation (principal) | CPT/HCPCS: 93244 ==

== ENCOUNTER 2023-01-14 09:33 | Outpatient (AMB) | payer MEDICARE, SELFPAY ==
--- NOTE | 2023-01-14 10:04 | AM.OFFVISNUR ---
Intake Intake Visit Reasons: 5 DAY EKG PER DC STARTED ON MULTAQ Intake Note: Here for EKG today. Pt has been on Multaq since the evening of 01/08. She developed awful diarrhea and she attributes it to the Multaq. She stopped the Multaq yesterday and today and the diarrhea has now stopped. She also states that she was in Afib up until yesterday and that has now stopped, too. Does not want to restart Multaq. Nursing Associate Required: No Accompanied by: Self / Same As Patient Allergies irbesartan [IRBESARTAN] Allergy (Intermediate, Verified 12/11/22 14:45) RASH latex [LATEX] Allergy (Intermediate, Verified 12/11/22 14:45) RASH NSAIDS (Non-Steroidal Anti-Inflamma [NSAIDS (NON-STEROIDAL ANTI-INFLAMMA] Allergy (Intermediate, Verified 12/11/22 14:45) STAGE 3 KIDNEY DISEASE sulfamethoxazole [From BACTRIM] Allergy (Intermediate, Verified 12/11/22 14:45) RASH trimethoprim [From BACTRIM] Allergy (Intermediate, Verified 12/11/22 14:45) RASH valsartan [From DIOVAN] Allergy (Intermediate, Verified 12/11/22 14:45) HIVE,DIFFICULTY BREATHING lisinopril [LISINOPRIL] Allergy (Unknown, Verified 12/11/22 14:45) PER MD losartan [LOSARTAN] Allergy (Unknown, Verified 12/11/22 14:45) PER MD Yhypjnb-ONI-TcG Reductase Inhibitor [SVQPOHE-WAH-FXH REDUCTASE INHIBITOR] Allergy (Unknown, Verified 12/11/22 14:45) PER MD meperidine [From Demerol] Adverse Reaction (Mild, Verified 12/11/22 14:45) VOMITING BANDAIDS Allergy (Unknown, Uncoded 12/11/22 14:45) RASH ALL NARCOTICS Adverse Reaction (Unknown, Uncoded 12/11/22 14:45) NAUSEA AND VOMITING Followed by:: Dr. Younger Nursing Note Dr. Younger made aware of above (pt stopped Multaq d/t diarrhea). EKG on his desk for review. shows Sinus Cornell. She feels fine. No complaints. Office Procedures EKG 09058-[id number], Complete Coding Level of Care Code Est Pt Level 1 (13497) Diagnoses CPT Codes EKG - CPT: 88754-Ydkndohasbhsafxnn, Complete ([id number]) Time Spent (min) 20 Comment cEKG, med reconciliation, education, documentation.
== END 2023-01-14 10:09 | disposition home or self-care (01) ==
PROVIDERS: Visit Provider Nurse Practitioner Family
DX: R00.1 Bradycardia, unspecified (principal)
CPT/HCPCS: 93010

== ENCOUNTER → 2023-01-14 09:33 | Outpatient (BNVA) | payer MEDICARE, SELFPAY | PROVIDERS: Visit Provider Nurse Practitioner Family | DX: R00.1 Bradycardia, unspecified (principal); R19.7 Diarrhea, unspecified; Z51.81 Encounter for therapeutic drug level monitoring; Z79.899 Other long term (current) drug therapy | CPT/HCPCS: 93005 ==

== ENCOUNTER 2023-01-19 09:14 | Outpatient (AMB) | payer MEDICARE, SELFPAY ==
[2023-01-19 09:18] VITALS: BP 120/60; PULSE 73; BMI 35.0
--- NOTE | 2023-01-19 09:18 | MHC.OFFVIS ---
Intake Vital Signs 01/19/23 09:18 Height 5 ft 1 in Weight 185 lb 3.013 oz BMI 35.0 BP 120/60 Blood Pressure Location Lt brachial Position Sitting Pulse 73 Intake Visit Reasons: 4 week fu after holter Intake Note: 4 week f/u after holter Dairy Chemist Required: No Allergies irbesartan [IRBESARTAN] Allergy (Intermediate, Verified 01/19/23 09:25) RASH latex [LATEX] Allergy (Intermediate, Verified 01/19/23 09:25) RASH NSAIDS (Non-Steroidal Anti-Inflamma [NSAIDS (NON-STEROIDAL ANTI-INFLAMMA] Allergy (Intermediate, Verified 01/19/23 09:25) STAGE 3 KIDNEY DISEASE sulfamethoxazole [From BACTRIM] Allergy (Intermediate, Verified 01/19/23 09:25) RASH trimethoprim [From BACTRIM] Allergy (Intermediate, Verified 01/19/23 09:25) RASH valsartan [From DIOVAN] Allergy (Intermediate, Verified 01/19/23 09:25) HIVE,DIFFICULTY BREATHING lisinopril [LISINOPRIL] Allergy (Unknown, Verified 01/19/23 09:25) PER MD losartan [LOSARTAN] Allergy (Unknown, Verified 01/19/23 09:25) PER MD Owlxbmm-GVV-EmV Reductase Inhibitor [SQMVLOQ-BPE-EOS REDUCTASE INHIBITOR] Allergy (Unknown, Verified 01/19/23 09:25) PER MD meperidine [From Demerol] Adverse Reaction (Mild, Verified 01/19/23 09:25) VOMITING BANDAIDS Allergy (Unknown, Uncoded 12/11/22 14:45) RASH ALL NARCOTICS Adverse Reaction (Unknown, Uncoded 12/11/22 14:45) NAUSEA AND VOMITING Medication List - Last Reconciled 01/19/23 by ADELINE DominiqueC allopurinol 100 mg PO DAILY apixaban (Eliquis) 2.5 mg PO BID calcium fructoborate (Move Free Ultra Faster Comfort) 216 mg PO DAILY cholecalciferol (vitamin D3) 25 mcg PO DAILY clotrimazole-betamethasone 1-0.05 % appl topical diltiazem HCl 180 mg PO DAILY ezetimibe 10 mg PO DAILY fexofenadine (Heidi Allergy) 180 mg PO DAILY PRN bcqym-xz-2-fbd-zup-veenfwo-ast 1,000-230-60 mg (MegaRed [place]-3 Krill Oil) 1 cap PO DAILY Lactobacillus acidophilus (Probiotic Gold Acidophilus) 10 mg PO BID metoprolol succinate ER 50 mg PO BID miscellaneous medical supply 1 ea miscellaneous DAILY multivitamin 1 tab PO DAILY omeprazole 20 mg PO DAILY rosuvastatin (Crestor) 20 mg PO DAILY spironolacton-hydrochlorothiaz 25-25 mg 1 tab PO DAILY triamcinolone acetonide (Nasacort) 1 spray intranasal DAILY PRN HPI 4 week fu after holter HPI Details Rosenda is a 77-year-old female with past medical history hypertension, chronic kidney disease, paroxysmal atrial fibrillation who presents for follow up. Today she reports that she had significant diarrhea from taking Multaq. Since stopping her diarrhea has resolved. She continues on the diltiazem and metoprolol for heart rate control. She is on her Eliquis for anticoagulation without any bleeding issues. She will feel heart palpitations at times but is not overly bothered by them. She notices some increased fatigue and shortness of breath when she has atrial fibrillation. She uses her watch/ phone to tell her when she is in AFib. No dizziness, presyncope, syncope, falls. No PND, orthopnea or edema. She does normal ADLs without concerning symptoms. Has not received a call yet from the child support agent. REPLACED BY [facility] Medical History Aortic calcification Duodenal ulcer Essential hypertension Hemorrhage of gastrointestinal tract, unspecified PAF (paroxysmal atrial fibrillation) Sleep apnea Surgical History H/O colonoscopy History of bunionectomy History of colectomy History of esophagogastroduodenoscopy (EGD) History of foot surgery History of hysterectomy History of parathyroidectomy Family History Father No problems noted. Mother No problems noted. Brother FH: testicular cancer Social History Alcohol intake: current Alcohol intake frequency: holidays/special occasions only Alcohol type: wine Patient Tobacco Use Status: Former Tobacco user Tobacco use type: Cigarette Cigarettes Per Day: 20 Years Smoked: 30 Review of Systems Const All systems reviewed & are unremarkable except as noted in HPI and below ENT Denies dizziness Card Details: Occasional palpitations Denies chest pain, Denies chest pain at rest, Denies chest pain with activity, Denies rapid heart rate, Denies pedal edema, Denies edema, Denies leg edema, Denies lightheadedness, Denies palpitations, Denies dyspnea, Denies dyspnea on exertion and Denies orthopnea Resp Denies cough, Denies dyspnea and Denies dyspnea on exertion GI Denies hematochezia and Denies change in stool character Musc Denies abnormal gait, Reports limited range of motion, Reports muscle cramps, Denies muscle weakness, Denies numbness, Denies radiating pain into limb, Denies stiffness and Denies tingling Neuro Denies abnormal gait, Denies dizziness, Denies numbness and Denies tingling Endo Denies palpitations Physical Exam Vital Signs: Last Vital Signs Pulse 73 01/19/23 09:18 BP 120/60 01/19/23 09:18 BMI result Body Mass Index 35.0 Const General: cooperative, healthy appearing, comfortable and no acute distress Orientation/consciousness: patient oriented x3 Neck Neck: Yes normal visual inspection Resp Effort & Inspection: normal respiratory effort Auscultation: clear to auscultation bilaterally, no crackles, no rales, no rhonchi and no wheezes Cardio Jugular venous distension: no JVD Rate: regular rate Rhythm: abnormal rhythm Heart sounds: S1 normal heart sound present, S2 normal heart sound present, no gallops, no murmurs and no rubs GI Inspection: Yes normal to inspection Skin General skin exam: no rashes or lesions noted Neuro General: patient oriented x3 Extrem General: Yes normal to inspection, No no pedal edema and No calf tenderness Psych Appearance: grossly normal Mental Status: mental status grossly normal Speech and movement: Normal speech and movement present Office Procedures EKG Details: Today, read by me, atrial fibrillation, low voltage QRS, QTC 429 milliseconds, rate 73, can not exclude prior anterior infarct based on QRS morphology [id number], Complete Assessment & Plan Assessment & Plan (1) PAF (paroxysmal atrial fibrillation): Code(s): I48.0 - Paroxysmal atrial fibrillation Plan: History of paroxysmal atrial fibrillation. Had been mostly suppressed with use of rate slowing medications. Last echocardiogram 12/11/2020 showing EF 55-60%, normal valves, grade 2 diastolic dysfunction. Recently she has had reported increasing episodes of AFib. She uses her watch and phone to record them. EKG done last visit showed sinus bradycardia, rate 54. Holter monitor done on 12/26/2022 for 3 days showed atrial fibrillation 33.5% of the time, sinus rhythm the remaining time with average heart rate 65. Fastest rate with AFib 133 beats per minute. She was then put on Multaq 400 mg b.i.d. which she took for 4 days then reported significant diarrhea. The medication was then stopped and she now reports resolution of the diarrhea. She is back on her usual diltiazem and metoprolol. She feels occasional heart palpitations and mild fatigue with the AFib but otherwise is doing well. She has been referred to electrophysiology for evaluation of AFib ablation. She is agreeable to this plan. Will continue current rate slowing meds and continue Eliquis for anticoagulation. No bleeding issues reported. Cardiology follow-up in 3-4 months to evaluate symptoms, rhythm and possibly post ablation EKG. ED care if ever needed for symptoms. (2) Essential hypertension: Code(s): I10 - Essential (primary) hypertension Plan: Well controlled at present time. No med changes made Coding Level of Care Code Est Pt Level 4 (52239) Diagnoses PAF (paroxysmal atrial fibrillation) I48.0 Essential hypertension I10 CPT Codes EKG - CPT: 79386-Rlloywvuuvjubpmwm, Complete ([id number]) Time Spent (min) 26 Comment Chart review, documentation, interview, assessment
== END 2023-01-19 09:46 | disposition home or self-care (01) ==
PROVIDERS: Visit Provider Nurse Practitioner Family
DX: I48.0 Paroxysmal atrial fibrillation (principal); I10 Essential (primary) hypertension
CPT/HCPCS: 93010; 99214

== ENCOUNTER → 2023-01-19 09:14 | Outpatient (BNVA) | payer MEDICARE, SELFPAY | PROVIDERS: Visit Provider Nurse Practitioner Family | DX: I48.0 Paroxysmal atrial fibrillation (principal); I12.9 Hypertensive chronic kidney disease with stage 1 through stage 4 chronic kidney disease, or unspecified chronic kidney disease; N18.9 Chronic kidney disease, unspecified; Z87.891 Personal history of nicotine dependence; Z79.01 Long term (current) use of anticoagulants; Z79.899 Other long term (current) drug therapy | CPT/HCPCS: 93005; 99212 ==

== ENCOUNTER 2023-02-11 14:07 | Outpatient (AMB) | payer MEDICARE, SELFPAY ==
--- NOTE | 2023-02-11 14:11 | MHC.OFFVIS ---
Intake Vital Signs 02/11/23 14:12 Height 5 ft 1 in Weight 186 lb 11.704 oz BMI 35.3 BP 120/84 Blood Pressure Location Rt brachial Position Sitting Pulse 8 L Pulse Source Pulse Oximeter Temp 97.2 F Temp Source Skin Pulse Oximetry (%) 96 Oxygen Delivery Method Room Air Intake Visit Reasons: osteoathritis Intake Note: Patient here to follow up on OA. 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 Accompanied by: Self / Same As Patient Allergies irbesartan [IRBESARTAN] Allergy (Intermediate, Verified 02/11/23 14:12) RASH latex [LATEX] Allergy (Intermediate, Verified 02/11/23 14:12) RASH NSAIDS (Non-Steroidal Anti-Inflamma [NSAIDS (NON-STEROIDAL ANTI-INFLAMMA] Allergy (Intermediate, Verified 02/11/23 14:12) STAGE 3 KIDNEY DISEASE sulfamethoxazole [From BACTRIM] Allergy (Intermediate, Verified 02/11/23 14:12) RASH trimethoprim [From BACTRIM] Allergy (Intermediate, Verified 02/11/23 14:12) RASH valsartan [From DIOVAN] Allergy (Intermediate, Verified 02/11/23 14:12) HIVE,DIFFICULTY BREATHING lisinopril [LISINOPRIL] Allergy (Unknown, Verified 02/11/23 14:12) PER MD losartan [LOSARTAN] Allergy (Unknown, Verified 02/11/23 14:12) PER MD Hlhhrwj-IXR-XeJ Reductase Inhibitor [DFJHRND-FAQ-NSO REDUCTASE INHIBITOR] Allergy (Unknown, Verified 02/11/23 14:12) PER MD meperidine [From Demerol] Adverse Reaction (Mild, Verified 02/11/23 14:12) VOMITING BANDAIDS Allergy (Unknown, Uncoded 02/11/23 14:12) RASH ALL NARCOTICS Adverse Reaction (Unknown, Uncoded 02/11/23 14:12) NAUSEA AND VOMITING Medication List - Last Reconciled 02/11/23 by Danis Son MD allopurinol 100 mg PO DAILY apixaban (Eliquis) 2.5 mg PO BID calcium fructoborate (Move Free Ultra Faster Comfort) 216 mg PO DAILY cholecalciferol (vitamin D3) 25 mcg PO DAILY clotrimazole-betamethasone 1-0.05 % appl topical diltiazem HCl 180 mg PO DAILY ezetimibe 10 mg PO DAILY fexofenadine (Heidi Allergy) 180 mg PO DAILY PRN [id number]-chpdhji-ast 1,000-230-60 mg (MegaRed [place]-3 Krill Oil) 1 cap PO DAILY Lactobacillus acidophilus (Probiotic Gold Acidophilus) 10 mg PO BID metoprolol succinate ER 50 mg PO BID miscellaneous medical supply 1 ea miscellaneous DAILY multivitamin 1 tab PO DAILY omeprazole 20 mg PO DAILY rosuvastatin (Crestor) 20 mg PO DAILY spironolacton-hydrochlorothiaz 25-25 mg 1 tab PO DAILY triamcinolone acetonide (Nasacort) 1 spray intranasal DAILY PRN HPI HPI Comments History of Present Illness Details This is a 77-year-old female with generalized osteoarthritis who presents for follow-up. She was last evaluated by Thais Will last year. Patient states that she has had left shoulder osteoarthritis for years. Left shoulder replacement was recommended and patient did not want to go through with it. She got numerous shoulder steroid injections over the years which were not helpful and the injections themselves were quite painful, she received a couple of shoulder bursa injections by her PCP which were more helpful. Last injection was June 2022 Her other complaint is her right knee pain which is worse with walking. Tylenol does not help, NSAIDs are relatively contraindicated due to her history of CKD and being on Eliquis. She also mentions that she gets triggering of her right 3rd and 4th fingers. It does not happen frequently and has not been a problem recently. She received trigger finger injections in her left hand years ago and they were helpful [facility] Medical History Aortic calcification Duodenal ulcer Essential hypertension Hemorrhage of gastrointestinal tract, unspecified PAF (paroxysmal atrial fibrillation) Sleep apnea Surgical History H/O colonoscopy History of bunionectomy History of colectomy History of esophagogastroduodenoscopy (EGD) History of foot surgery History of hysterectomy History of parathyroidectomy Family History Father No problems noted. Mother No problems noted. Brother FH: testicular cancer Social History Alcohol intake: current Alcohol intake frequency: holidays/special occasions only Alcohol type: wine Patient Tobacco Use Status: Former Tobacco user Tobacco use type: Cigarette Cigarettes Per Day: 20 Years Smoked: 30 Review of Systems [facility] Reports arthralgias and Reports stiffness Physical Exam Vital Signs: Last Vital Signs Temp 97.2 F 02/11/23 14:12 Pulse 8 L 02/11/23 14:12 BP 120/84 02/11/23 14:12 Pulse Ox 96 02/11/23 14:12 Oxygen Delivery Method Room Air 02/11/23 14:12 BMI result Body Mass Index 35.3 Const General: cooperative, healthy appearing and comfortable Nutritional Appearance: obese Orientation/consciousness: patient oriented x3 Limitations: no limitations HEENT Head: Yes normocephalic and Yes atraumatic Mouth: moist mucous membranes Resp Effort & Inspection: normal respiratory effort and able to speak in complete sentences Neuro General: patient oriented x3 Extrem Other: Mild osteoarthritic changes of both hands with no active synovitis reduced left shoulder abduction Right knee warmth Assessment & Plan Assessment & Plan (1) Generalized osteoarthritis: Code(s): M15.9 - Polyosteoarthritis, unspecified Plan: This is a 77-year-old female with generalized osteoarthritis who presents for follow-up. Patient has left shoulder osteoarthritis and surgery was recommended and patient does not want to go through with it. She also has right knee osteoarthritis. I discussed different treatment options for knee osteoarthritis including physical therapy, Tylenol, Voltaren gel and injections. Patient states that Tylenol does not help, I suggested using Voltaren gel as needed. Patient not interested in injections or physical therapy today (2) Trigger finger of right hand: Code(s): M65.30 - Trigger finger, unspecified finger Qualifiers: Trigger finger location: middle finger Qualified Code(s): M65.331 - Trigger finger, right middle finger Plan: Intermittent triggering of her right 3rd and 4th fingers, not quite symptomatic currently. Advised patient that these can be injected if they become painful in the future. Follow-up in 1 year Plan I spent 26 minutes reviewing patient's chart, evaluating patient, counseling patient and documenting in the chart Coding Level of Care Code Est Pt Level 4 (08582) Diagnoses Generalized osteoarthritis M15.9 Trigger finger of right hand M65.331 Trigger finger location: middle finger
[2023-02-11 14:12] VITALS: BP 120/84; PULSE 8; TEMP 36.2; O2SAT 96; BMI 35.3
== END 2023-02-11 14:46 | disposition home or self-care (01) ==
PROVIDERS: PCP Internal Medicine; Visit Provider Student in an Organized Health Care Education/Training Program
DX: M15.9 Polyosteoarthritis, unspecified (principal); M65.331 Trigger finger, right middle finger
CPT/HCPCS: 99214

== ENCOUNTER → 2023-02-11 14:07 | Outpatient (BNVA) | payer MEDICARE, SELFPAY | PROVIDERS: PCP Internal Medicine; Visit Provider Student in an Organized Health Care Education/Training Program | DX: M15.9 Polyosteoarthritis, unspecified (principal); M25.561 Pain in right knee; M65.331 Trigger finger, right middle finger | CPT/HCPCS: 99212 ==

== ENCOUNTER 2023-05-21 11:07 | Outpatient (AMB) | payer MEDICARE, SELFPAY ==
[2023-05-21 11:08] VITALS: BP 132/78; PULSE 64; O2SAT 98; BMI 35.8
--- NOTE | 2023-05-21 11:08 | HO.NEPHOV ---
HPI HPI Comments History of Present Illness Details 6-year-old man with a history of hypertension CKD. Serum creatinine is usually around 1.3-1.4 mg/dL. She has history of atrial fibrillation which seems to be controlled. She was offered watchman and she has refused. Sometimes she feels lightheaded when she tries to stand up. There has been a bump in serum creatinine up to 1.7 by in March and be as of April creatinine is down to 1.6 which is still higher than her baseline. No urine symptoms. [facility] Medical History Sleep apnea Essential hypertension Hemorrhage of gastrointestinal tract, unspecified Aortic calcification Duodenal ulcer PAF (paroxysmal atrial fibrillation) Surgical History History of bunionectomy History of esophagogastroduodenoscopy (EGD) H/O colonoscopy History of colectomy History of foot surgery History of parathyroidectomy History of hysterectomy Family History Father No problems noted. Mother No problems noted. Brother FH: testicular cancer Social History Alcohol intake: current Alcohol intake frequency: holidays/special occasions only Alcohol type: wine Patient Tobacco Use Status: Former Tobacco user Tobacco use type: Cigarette Cigarettes Per Day: 20 Years Smoked: 30 Vital Signs 05/21/23 11:08 Height 5 ft 1 in Weight 189 lb 6 oz BMI 35.8 BP 132/78 Blood Pressure Location Lt brachial Position Sitting Pulse 64 Pulse Source Pulse Oximeter Pulse Oximetry (%) 98 Oxygen Delivery Method Room Air Physical Exam Vital Signs: Last Vital Signs Pulse 64 05/21/23 11:08 BP 132/78 05/21/23 11:08 Pulse Ox 98 05/21/23 11:08 Oxygen Delivery Method Room Air 05/21/23 11:08 BMI result Body Mass Index 35.8 Const General: comfortable Nutritional Appearance: well nourished Orientation/consciousness: patient oriented x3 HEENT Head: No normal to inspection Mouth: moist mucous membranes Neck Neck: Yes supple and Yes no JVD Resp Auscultation: clear to auscultation bilaterally, no rales and rub present Cardio Jugular venous distension: no JVD Palpation: no palpable S3 and no palpable S4 Heart sounds: no rubs GI Palpation (GI): Soft to palpation and nontender Percussion: No Fluid wave present General: Yes no CVA tenderness Back/Spine/Pelvis Back: no CVA tenderness Skin General skin exam: no rashes or lesions noted Neuro General: patient oriented x3 Extrem General: Yes no pedal edema and No clubbing Assessment & Plan Assessment & Plan (1) Essential hypertension: Code(s): I10 - Essential (primary) hypertension (2) Stage III chronic kidney disease: Code(s): N18.30 - Chronic kidney disease, stage 3 unspecified (3) Hyperparathyroidism: Comment: Status post parathyroidectomy Code(s): E21.3 - Hyperparathyroidism, unspecified (4) Microalbuminuria: Comment: Unable to tolerate output Code(s): R80.9 - Proteinuria, unspecified Plan: Continue with RAAS inhibition with Aldactazide Plan Elderly woman with stage III CKD in the setting of hypertension with a baseline creatinine 1.4 mg/dL has sustained AKA. Recent creatinine is 1.6. I suspect she has a component of hypoperfusion. Therefore I will Decrease Aldactazide 25/25 to HALF tab a day Check renal ultrasound to rule out any ongoing obstruction. Included increase her fluid intake. Continue overt nephrotoxic agents. I will recheck the renal panel the next few months. Orders: Orders Blood Urea Nitrogen 2 Months I10 - Essential (primary) hypertension, N18.30 - Chronic kidney disease, stage 3 unspecified Creatinine 2 Months I10 - Essential (primary) hypertension, N18.30 - Chronic kidney disease, stage 3 unspecified Electrolytes 2 Months I10 - Essential (primary) hypertension, N18.30 - Chronic kidney disease, stage 3 unspecified Calcium 2 Months I10 - Essential (primary) hypertension, N18.30 - Chronic kidney disease, stage 3 unspecified Total Protein Urine Random 2 Months I10 - Essential (primary) hypertension, N18.30 - Chronic kidney disease, stage 3 unspecified Creatinine Urine 2 Months I10 - Essential (primary) hypertension, N18.30 - Chronic kidney disease, stage 3 unspecified US renal BI 2 Months I10 - Essential (primary) hypertension, N18.30 - Chronic kidney disease, stage 3 unspecified Coding Level of Care Code Est Pt Level 4 (32681) Diagnoses Essential hypertension I10 Stage III chronic kidney disease N18.30 Hyperparathyroidism E21.3 Microalbuminuria R80.9 Results Reviewed Nephrology Results: Sodium 140 mmol/L (135-145) 11/12/22 Potassium 4.1 mmol/L (3.3-5.1) 11/12/22 Chloride 103 mmol/L (96-108) 11/12/22 Carbon Dioxide 26 mmol/L (22-29) 11/12/22 BUN 30 mg/dL (9-16) H 11/12/22 Creatinine 1.48 mg/dL (0.5-1.4) H 11/12/22 Calcium 9.7 mg/dL (8.4-10.2) 11/12/22
== END 2023-05-21 11:25 | disposition home or self-care (01) ==
PROVIDERS: PCP Internal Medicine; Visit Provider Internal Medicine Hypertension Specialist
DX: I10 Essential (primary) hypertension (principal); N18.30 Chronic kidney disease, stage 3 unspecified; E21.3 Hyperparathyroidism, unspecified; R80.9 Proteinuria, unspecified
CPT/HCPCS: 99214

== ENCOUNTER → 2023-05-21 11:07 | Outpatient (BNVA) | payer MEDICARE, SELFPAY | PROVIDERS: PCP Internal Medicine; Visit Provider Internal Medicine Hypertension Specialist | DX: I12.9 Hypertensive chronic kidney disease with stage 1 through stage 4 chronic kidney disease, or unspecified chronic kidney disease (principal); N18.30 Chronic kidney disease, stage 3 unspecified; E21.3 Hyperparathyroidism, unspecified; R80.9 Proteinuria, unspecified | CPT/HCPCS: 99212 ==

== ENCOUNTER 2023-06-24 10:39 | Outpatient (AMB) | payer MEDICARE, SELFPAY ==
[2023-06-24 10:45] VITALS: BP 120/60; PULSE 73; BMI 35.7
--- NOTE | 2023-06-24 10:45 | MHC.OFFVIS ---
Intake Vital Signs 06/24/23 10:45 Height 5 ft 1 in Weight 189 lb 2.506 oz BMI 35.7 BP 120/60 Blood Pressure Location Lt brachial Position Sitting Pulse 73 Pulse Source Pulse Oximeter Intake Visit Reasons: 1 yr f/up Intake Note: 1 yr f/up pt its feeling fine. Physician Executive Required: No Accompanied by: Self / Same As Patient Allergies irbesartan [IRBESARTAN] Allergy (Intermediate, Verified 05/21/23 11:10) RASH latex [LATEX] Allergy (Intermediate, Verified 05/21/23 11:10) RASH NSAIDS (Non-Steroidal Anti-Inflamma [NSAIDS (NON-STEROIDAL ANTI-INFLAMMA] Allergy (Intermediate, Verified 05/21/23 11:10) STAGE 3 KIDNEY DISEASE sulfamethoxazole [From BACTRIM] Allergy (Intermediate, Verified 05/21/23 11:10) RASH trimethoprim [From BACTRIM] Allergy (Intermediate, Verified 05/21/23 11:10) RASH valsartan [From DIOVAN] Allergy (Intermediate, Verified 05/21/23 11:10) HIVE,DIFFICULTY BREATHING lisinopril [LISINOPRIL] Allergy (Unknown, Verified 05/21/23 11:10) PER MD losartan [LOSARTAN] Allergy (Unknown, Verified 05/21/23 11:10) PER MD Cqcfjgu-HAE-YhE Reductase Inhibitor [ZEEJPII-GAO-IYS REDUCTASE INHIBITOR] Allergy (Unknown, Verified 05/21/23 11:10) PER MD meperidine [From Demerol] Adverse Reaction (Mild, Verified 05/21/23 11:10) VOMITING BANDAIDS Allergy (Unknown, Uncoded 05/21/23 11:10) RASH ALL NARCOTICS Adverse Reaction (Unknown, Uncoded 05/21/23 11:10) NAUSEA AND VOMITING Medication List - Last Reconciled 06/24/23 by Melquiades Younger MD allopurinol 100 mg PO DAILY apixaban (Eliquis) 2.5 mg PO BID calcium fructoborate (Move Free Ultra Faster Comfort) 216 mg PO DAILY cholecalciferol (vitamin D3) 25 mcg PO DAILY clotrimazole-betamethasone 1-0.05 % appl topical diltiazem HCl 180 mg PO DAILY ezetimibe 10 mg PO DAILY fexofenadine (Heidi Allergy) 180 mg PO DAILY PRN [id number]-[id number]-[id number]-lfb-ntyjgte-ast 1,000-230-60 mg (MegaRed [place]-3 Krill Oil) 1 cap PO DAILY Lactobacillus acidophilus (Probiotic Gold Acidophilus) 10 mg PO BID metoprolol succinate ER 50 mg PO BID miscellaneous medical supply 1 ea miscellaneous DAILY multivitamin 1 tab PO DAILY omeprazole 20 mg PO DAILY rosuvastatin (Crestor) 20 mg PO DAILY spironolacton-hydrochlorothiaz 25-25 mg 1 tab PO DAILY triamcinolone acetonide (Nasacort) 1 spray intranasal DAILY PRN HPI HPI Comments History of Present Illness Details Rosenda is here for follow-up regarding atrial fibrillation. To recall, in 2019, she was admitted for sigmoid diverticulitis and underwent resection. In that context, she had atrial fibrillation. She converted back to sinus without any interventions. She was sent home on Eliquis. Then she had gastrointestinal bleeding and was admitted again. Endoscopy had shown duodenal ulcers and she was sent home on PPIs. Eliquis was stopped at that time but more recently, she is back on Eliquis. She was maintained on beta-blockers as well as verapamil. Verapamil was apparently too expensive and she is only on a small dose of diltiazem now instead. Some palpitations off and on but not much. She has seen EP for possible ablation but decided against it. Otherwise, seems to be getting along okay. [facility] Medical History Sleep apnea Essential hypertension Hemorrhage of gastrointestinal tract, unspecified Aortic calcification Duodenal ulcer PAF (paroxysmal atrial fibrillation) Surgical History History of bunionectomy History of esophagogastroduodenoscopy (EGD) H/O colonoscopy History of colectomy History of foot surgery History of parathyroidectomy History of hysterectomy Family History Father No problems noted. Mother No problems noted. Brother FH: testicular cancer Social History Alcohol intake: current Alcohol intake frequency: holidays/special occasions only Alcohol type: wine Patient Tobacco Use Status: Former Tobacco user Tobacco use type: Cigarette Cigarettes Per Day: 20 Years Smoked: 30 Review of Systems Const Reports chills, Reports fatigue, Reports fever(s), Reports frequent falls, Reports weakness, Reports weight gain and Reports weight loss ENT Reports dizziness Card Reports chest pain, Reports leg edema, Reports lightheadedness, Reports palpitations, Reports dyspnea and Reports dyspnea on exertion Resp Reports cough, Reports dyspnea and Reports dyspnea on exertion GI Reports hematochezia Musc Reports abnormal gait, Reports muscle weakness, Reports numbness, Reports radiating pain into limb and Reports tingling Neuro Reports abnormal gait, Reports dizziness, Reports frequent falls, Reports numbness, Reports tingling and Reports weakness Endo Reports fatigue and Reports palpitations Physical Exam Vital Signs: Last Vital Signs Pulse 73 06/24/23 10:45 BP 120/60 06/24/23 10:45 BMI result Body Mass Index 35.7 Const General: comfortable and no acute distress Orientation/consciousness: patient oriented x3 HEENT Other: Unremarkable Head: Yes normal to inspection Neck Neck: Yes normal visual inspection Chest Chest palpation & inspection: normal inspection of the chest Resp Auscultation: clear to auscultation bilaterally Cardio Palpation: normal PMI Heart sounds: S1 normal heart sound present, S2 normal heart sound present, no gallops, no murmurs and no rubs GI Palpation (GI): Soft to palpation Back/Spine/Pelvis Other: unremarkable Skin General skin exam: no rashes or lesions noted Neuro General: patient oriented x3 Extrem General: Yes normal to inspection Psych Mental Status: mental status grossly normal Assessment & Plan Assessment & Plan (1) PAF (paroxysmal atrial fibrillation): Code(s): I48.0 - Paroxysmal atrial fibrillation Plan: Continue metoprolol and diltiazem. Previously had taken verapamil but there was a cost issue. Tried Multaq but lot of side effects. Then went to EP for ablation consideration but decided against it. Hence no further changes today. Continue Eliquis as above. There is a history of GI bleeding but nothing recently. (2) Hemorrhage of gastrointestinal tract, unspecified: Code(s): K92.2 - Gastrointestinal hemorrhage, unspecified Qualifiers: GI bleed type/associated pathology: duodenal ulcer Qualified Code(s): K26.4 - Chronic or unspecified duodenal ulcer with hemorrhage Plan: In 2019. Status post blood transfusions. Endoscopy had then revealed duodenal ulcers. Now on PPIs. No recurrent issues. (3) Aortic calcification: Code(s): I70.0 - Atherosclerosis of aorta Plan: Clinically, no angina. A prior abdominal CT shows extensive aortoiliac calcification. Stress perfusion imaging unremarkable. Continue statins. No need for aspirin while on Eliquis especially with bleeding issue. (4) Essential hypertension: Code(s): I10 - Essential (primary) hypertension Plan: Stable. No changes. Orders: Orders ECG 3 day holter monitor 6 Months I48.0 - Paroxysmal atrial fibrillation Coding Level of Care Code Est Pt Level 4 (90621) Diagnoses PAF (paroxysmal atrial fibrillation) I48.0 Gastrointestinal hemorrhage associated with duodenal ulcer K26.4 GI bleed type/associated pathology: duodenal ulcer Aortic calcification I70.0 Essential hypertension I10
== END 2023-06-24 11:06 | disposition home or self-care (01) ==
PROVIDERS: Visit Provider Internal Medicine
DX: I48.0 Paroxysmal atrial fibrillation (principal); K26.4 Chronic or unspecified duodenal ulcer with hemorrhage; I70.0 Atherosclerosis of aorta; I10 Essential (primary) hypertension
CPT/HCPCS: 99214

== ENCOUNTER → 2023-06-24 10:39 | Outpatient (BNVA) | payer MEDICARE, SELFPAY | PROVIDERS: Visit Provider Internal Medicine | DX: I48.0 Paroxysmal atrial fibrillation (principal); I70.0 Atherosclerosis of aorta; I10 Essential (primary) hypertension; K62.4 Stenosis of anus and rectum | CPT/HCPCS: 99212 ==

== ENCOUNTER 2023-07-13 09:22 | Outpatient (REF) | payer MEDICARE, SELFPAY ==
--- NOTE | ~2023-07-13 | US_ITS ---
EXAMINATION: US RETROPERITONEAL LIMITED (RENAL ONLY) CLINICAL INFORMATION: Chronic kidney disease, stage III unspecified. COMPARISON: CT abdomen and pelvis 02/20/2019. X-ray abdomen 01/20/2019. Renal ultrasound 08/12/2011. MRA abdomen 03/11/2007. TECHNIQUE: Real-time imaging of the kidneys. Severely limited visualization due to bowel gas. FINDINGS: RIGHT KIDNEY: 9.8 x 4.1 x 3.4 cm (SAG x AP x TRV). Lower pole 1.9 x 1.6 x 1.7 cm cyst with thin septation. Lower pole 1.9 cm simple cyst. There is no indication for follow-up imaging. No hydronephrosis. No renal calculi. Limited visualization. LEFT KIDNEY: 10.5 x 4.7 x 4.6 cm (SAG x AP x TRV). No hydronephrosis. No renal calculi. Limited visualization. Lower pole 3.9 x 5.5 x 3.7 cm cyst appears simple. There is no indication for follow-up imaging. Additional smaller renal cysts. US/US renal BI IMPRESSION: No hydronephrosis. No renal calculi. Limited visualization.
== END 2023-07-13 09:23 | disposition home or self-care (01) ==
LOC: HO.US 09:22
PROVIDERS: PCP Internal Medicine; Visit Provider Internal Medicine Hypertension Specialist
DX: I12.9 Hypertensive chronic kidney disease with stage 1 through stage 4 chronic kidney disease, or unspecified chronic kidney disease (principal); N18.30 Chronic kidney disease, stage 3 unspecified
CPT/HCPCS: 76775

== ENCOUNTER 2023-07-31 11:36 | Outpatient (REF) | payer MEDICARE, SELFPAY ==
[2023-07-31 13:24] LABS: MANUAL DIFF FLAG NO
[2023-07-31 13:33] LABS: Basophils Percent Auto 0.7 % (0-2); Eosinophils Absolute Auto 0.3 X10*3/uL (0.0-0.4); Eosinophils Percent Auto 5.5 % (0-4); Hematocrit 37.3 % (37.0-47.0); Hemoglobin 10.8 g/dl (12.0-16.0); Imm Gran Abs Auto 0.02 X10*3/uL (0.00-0.03); Imm Gran Pct Auto 0.4 % (0.0-0.4); Lymphocytes Absolute Auto 1.2 X10*3/uL (1.2-4.9); Lymphocytes Percent Auto 20.9 % (20-40); Mean Corpuscular Hemoglobin 22.4 pg (27.0-33.0); Mean Corpuscular Volume 77.2 fL (80.0-98.0); Mean Platelet Volume 9.8 fL (9.4-12.3); Monocytes Absolute Auto 0.5 X10*3/uL (0.1-1.2); Monocytes Percent Auto 9.8 % (2-11); Neutrophils Absolute Auto 3.5 x10*3/uL (2.0-8.3); Neutrophils Percent Auto 62.7 % (45-73); Platelet Count 324 X10*3/uL (160-400); Red Blood Count 4.83 X10*6/uL (4.20-5.50); Red Cell Distribution Width 17.6 % (11.0-16.0); White Blood Count 5.5 X10*3/uL (4.8-10.8)
[2023-07-31 13:38] LABS: Estimated Average Glucose 131 mg/dL; Hemoglobin A1c % 6.2 % (<6.0)
[2023-07-31 13:44] LABS: Anion Gap 11 (12-20); Blood Urea Nitrogen 18 mg/dL (9-16); Calcium 9.7 mg/dL (8.4-10.2); Carbon Dioxide 28 mmol/L (22-29); Chloride 108 mmol/L (96-108); Estimated Glomerular Filt Rate 44; Potassium 4.5 mmol/L (3.3-5.1); Sodium 142 mmol/L (135-145)
[2023-07-31 13:47] LABS: Anion Gap 13 (12-20); Blood Urea Nitrogen 18 mg/dL (9-16); Calcium 9.7 mg/dL (8.4-10.2); Carbon Dioxide 27 mmol/L (22-29); Chloride 108 mmol/L (96-108); Estimated Glomerular Filt Rate 43; Glucose Random 103 mg/dL (60-115); Iron 32 mcg/dL (30-160); Percent Iron Saturation 8 % (15-50); Potassium 4.9 mmol/L (3.3-5.1); Sodium 143 mmol/L (135-145); Total Iron Binding Capacity 402 mcg/dL (228-428); Unsaturated Iron Binding 370 ug/dL
[2023-07-31 14:15] LABS: Total Protein Urine Random 120 mg/dL (<12)
[2023-07-31 14:20] LABS: Ferritin 12 ng/mL (10-250)
== END 2023-07-31 11:37 | disposition home or self-care (01) ==
LOC: HO.HMGCLDS 11:36
PROVIDERS: PCP Internal Medicine; Referring Provider Internal Medicine Hypertension Specialist; Visit Provider Internal Medicine
DX: I12.9 Hypertensive chronic kidney disease with stage 1 through stage 4 chronic kidney disease, or unspecified chronic kidney disease (principal); E11.22 Type 2 diabetes mellitus with diabetic chronic kidney disease; N18.30 Chronic kidney disease, stage 3 unspecified; D63.1 Anemia in chronic kidney disease; R53.83 Other fatigue
CPT/HCPCS: 36415; 80048; 80051; 82310; 82565; 82570; 82728; 83036; 83540; 84156; 84520; 85025

== ENCOUNTER 2023-08-20 10:50 | Outpatient (AMB) | payer MEDICARE, SELFPAY ==
[2023-08-20 10:59] VITALS: BP 130/56; PULSE 79; O2SAT 94; BMI 36.3
--- NOTE | 2023-08-20 10:59 | HO.NEPHOV ---
HPI HPI Comments History of Present Illness Details 78-year-old woman with a history of hypertension CKD. Serum creatinine is usually around 1.3-1.4 mg/dL. She has history of atrial fibrillation which seems to be controlled. She was offered watchman and she has refused. Sometimes she feels lightheaded when she tries to stand up. There has been a bump in serum creatinine up to 1.7 by in March and be as of April creatinine is down to 1.6 which is still higher than her baseline. No urine symptoms. 08/20/23: Feels better Still with A.Fib Seen by Cardiology- she is not planning to do ablation [facility] Medical History Sleep apnea Essential hypertension Hemorrhage of gastrointestinal tract, unspecified Aortic calcification Duodenal ulcer PAF (paroxysmal atrial fibrillation) Surgical History History of bunionectomy History of esophagogastroduodenoscopy (EGD) H/O colonoscopy History of colectomy History of foot surgery History of parathyroidectomy History of hysterectomy Family History Father No problems noted. Mother No problems noted. Brother FH: testicular cancer Social History Alcohol intake: current Alcohol intake frequency: holidays/special occasions only Alcohol type: wine Patient Tobacco Use Status: Former Tobacco user Tobacco use type: Cigarette Cigarettes Per Day: 20 Years Smoked: 30 Vital Signs 08/20/23 10:59 Height 5 ft 1 in Weight 192 lb 4 oz BMI 36.3 BP 130/56 L Blood Pressure Location Lt brachial Position Sitting Pulse 79 Pulse Source Pulse Oximeter Pulse Oximetry (%) 94 Oxygen Delivery Method Room Air Physical Exam Vital Signs: Last Vital Signs Pulse 79 08/20/23 10:59 BP 130/56 L 08/20/23 10:59 Pulse Ox 94 08/20/23 10:59 Oxygen Delivery Method Room Air 08/20/23 10:59 BMI result Body Mass Index 36.3 Const General: comfortable Nutritional Appearance: well nourished Orientation/consciousness: patient oriented x3 HEENT Head: No normal to inspection Mouth: moist mucous membranes Neck Neck: Yes supple and Yes no JVD Resp Auscultation: clear to auscultation bilaterally, no rales and rub present Cardio Jugular venous distension: no JVD Palpation: no palpable S3 and no palpable S4 Heart sounds: no rubs GI Palpation (GI): Soft to palpation and nontender Percussion: No Fluid wave present General: Yes no CVA tenderness Back/Spine/Pelvis Back: no CVA tenderness Skin General skin exam: no rashes or lesions noted Neuro General: patient oriented x3 Extrem General: Yes no pedal edema and No clubbing Assessment & Plan Assessment & Plan (1) Essential hypertension: Code(s): I10 - Essential (primary) hypertension (2) Stage III chronic kidney disease: Code(s): N18.30 - Chronic kidney disease, stage 3 unspecified (3) Hyperparathyroidism: Comment: Status post parathyroidectomy Code(s): E21.3 - Hyperparathyroidism, unspecified (4) Microalbuminuria: Code(s): R80.9 - Proteinuria, unspecified Plan: Continue with RAAS inhibition with Aldactazide Plan Elderly woman with stage III CKD in the setting of hypertension with a baseline creatinine 1.4 mg/dL has sustained AKA. Recent creatinine is 1.6. I suspect she has a component of hypoperfusion. After stopping Aldactazide 25/25 to HALF tab a day; Creatinine is back to baseline BP is well controlled Included increase her fluid intake. Continue to avoid nephrotoxic agents. Stable benign renal cyst Orders: Orders Comprehensive Met. Panel 6 Months N18.30 - Chronic kidney disease, stage 3 unspecified, N18.9 - Chronic kidney disease, unspecified Uric Acid 6 Months N18.30 - Chronic kidney disease, stage 3 unspecified Coding Level of Care Code Est Pt Level 4 (86694) Diagnoses Essential hypertension I10 Stage III chronic kidney disease N18.30 Hyperparathyroidism E21.3 Microalbuminuria R80.9 Results Reviewed Nephrology Results: Hgb 10.8 g/dl (12.0-16.0) L 07/31/23 WBC 5.5 X10*3/uL (4.8-10.8) 07/31/23 Plt Count 324 X10*3/uL (160-400) 07/31/23 Sodium 143 mmol/L (135-145) 07/31/23 Potassium 4.9 mmol/L (3.3-5.1) 07/31/23 Chloride 108 mmol/L (96-108) 07/31/23 Carbon Dioxide 27 mmol/L (22-29) 07/31/23 BUN 18 mg/dL (9-16) H 07/31/23 Creatinine 1.21 mg/dL (0.5-1.4) 07/31/23 Calcium 9.7 mg/dL (8.4-10.2) 07/31/23 Urine Creatinine 143.70 mg/dL 07/31/23 Renal US 07/13/23
== END 2023-08-20 11:12 | disposition home or self-care (01) ==
PROVIDERS: PCP Internal Medicine; Visit Provider Internal Medicine Hypertension Specialist
DX: I10 Essential (primary) hypertension (principal); N18.30 Chronic kidney disease, stage 3 unspecified; E21.3 Hyperparathyroidism, unspecified; R80.9 Proteinuria, unspecified
CPT/HCPCS: 99214

== ENCOUNTER → 2023-08-20 10:50 | Outpatient (BNVA) | payer MEDICARE, SELFPAY | PROVIDERS: PCP Internal Medicine; Visit Provider Internal Medicine Hypertension Specialist | DX: I12.9 Hypertensive chronic kidney disease with stage 1 through stage 4 chronic kidney disease, or unspecified chronic kidney disease (principal); N18.30 Chronic kidney disease, stage 3 unspecified; E21.3 Hyperparathyroidism, unspecified; R80.9 Proteinuria, unspecified | CPT/HCPCS: 99212 ==

== ENCOUNTER → 2023-10-05 10:07 | Outpatient (BNVA) | payer MEDICARE, SELFPAY | PROVIDERS: PCP Internal Medicine; Visit Provider Internal Medicine | DX: I11.0 Hypertensive heart disease with heart failure (principal); I50.9 Heart failure, unspecified; I48.0 Paroxysmal atrial fibrillation; I70.0 Atherosclerosis of aorta; K92.2 Gastrointestinal hemorrhage, unspecified | CPT/HCPCS: 99212 ==

== ENCOUNTER 2023-10-05 10:08 | Outpatient (AMB) | payer MEDICARE, SELFPAY ==
[2023-10-05 10:32] VITALS: BP 122/68; PULSE 87; O2SAT 98; BMI 35.8
--- NOTE | 2023-10-05 10:32 | MHC.OFFVIS ---
Vital Signs 10/05/23 10:32 Height 5 ft 1 in Weight 189 lb 9.561 oz BMI 35.8 BP 122/68 Blood Pressure Location Lt brachial Position Sitting Pulse 87 Pulse Source Pulse Oximeter Pulse Oximetry (%) 98 Oxygen Delivery Method Room Air Intake Visit Reasons: ED follow up/[facility]/ Congestive Heart failure Allergies irbesartan [IRBESARTAN] Allergy (Intermediate, Verified 08/20/23 11:01) RASH latex [LATEX] Allergy (Intermediate, Verified 08/20/23 11:01) RASH NSAIDS (Non-Steroidal Anti-Inflamma [NSAIDS (NON-STEROIDAL ANTI-INFLAMMA] Allergy (Intermediate, Verified 08/20/23 11:01) STAGE 3 KIDNEY DISEASE sulfamethoxazole [From BACTRIM] Allergy (Intermediate, Verified 08/20/23 11:01) RASH trimethoprim [From BACTRIM] Allergy (Intermediate, Verified 08/20/23 11:01) RASH valsartan [From DIOVAN] Allergy (Intermediate, Verified 08/20/23 11:01) HIVE,DIFFICULTY BREATHING lisinopril [LISINOPRIL] Allergy (Unknown, Verified 08/20/23 11:01) PER MD losartan [LOSARTAN] Allergy (Unknown, Verified 08/20/23 11:01) PER MD Kymhrbi-BPJ-KlD Reductase Inhibitor [[id number] REDUCTASE INHIBITOR] Allergy (Unknown, Verified 08/20/23 11:01) PER MD meperidine [From Demerol] Adverse Reaction (Mild, Verified 08/20/23 11:01) VOMITING BANDAIDS Allergy (Unknown, Uncoded 05/21/23 11:10) RASH ALL NARCOTICS Adverse Reaction (Unknown, Uncoded 05/21/23 11:10) NAUSEA AND VOMITING Medication List - Last Reconciled 10/05/23 by Melquiades Younger MD allopurinol 100 mg PO DAILY apixaban (Eliquis) 2.5 mg PO BID cholecalciferol (vitamin D3) 25 mcg PO DAILY clotrimazole-betamethasone 1-0.05 % appl topical coenzyme Q10 (Co Q-10) 100 mg PO DAILY diltiazem HCl CD 180 mg PO DAILY ezetimibe 10 mg PO DAILY furosemide (Lasix) 20 mg PO DAILY metoprolol succinate ER 50 mg PO BID miscellaneous medical supply 1 ea miscellaneous DAILY rosuvastatin (Crestor) 20 mg PO DAILY HPI Comments Details: Rosenda returns for follow-up. Apparently recent hospitalization at [facility] for congestive heart failure. Otherwise, she has history of atrial fibrillation. To recall, in 2019, she was admitted for sigmoid diverticulitis and underwent resection. In that context, she had atrial fibrillation. She converted back to sinus without any interventions. She was sent home on Eliquis. Then she had gastrointestinal bleeding and was admitted again. Endoscopy had shown duodenal ulcers and she was sent home on PPIs. Eliquis was stopped at that time but more recently, she is back on Eliquis. She was maintained on beta-blockers as well as verapamil. Verapamil was apparently too expensive and she is now on diltiazem. She has seen EP for possible ablation but decided against it. Otherwise, she was feeling short of breath few weeks back and that led to hospitalization at [facility]. She was treated for congestive heart failure and discharged. Now she is on diuretics. Feeling better. [facility] Medical History Sleep apnea Essential hypertension Hemorrhage of gastrointestinal tract, unspecified Aortic calcification Duodenal ulcer PAF (paroxysmal atrial fibrillation) Surgical History History of bunionectomy History of esophagogastroduodenoscopy (EGD) H/O colonoscopy History of colectomy History of foot surgery History of parathyroidectomy History of hysterectomy Family History Father No problems noted. Mother No problems noted. Brother FH: testicular cancer Social History Alcohol intake: current Alcohol intake frequency: holidays/special occasions only Alcohol type: wine Patient Tobacco Use Status: Former Tobacco user Tobacco use type: Cigarette Cigarettes Per Day: 20 Years Smoked: 30 Review of Systems Const Denies weakness ENT Denies dizziness Card Denies chest pain, Denies chest pain with activity, Denies syncope, Denies rapid heart rate, Denies pedal edema, Denies edema, Denies leg edema, Denies lightheadedness, Denies palpitations, Denies dyspnea, Denies dyspnea on exertion and Denies orthopnea Resp Denies cough, Denies dyspnea and Denies dyspnea on exertion GI Denies hematochezia and Denies change in stool character Musc Denies abnormal gait, Denies muscle cramps, Denies muscle weakness, Denies numbness, Denies radiating pain into limb and Denies tingling Neuro Denies abnormal gait, Denies dizziness, Denies syncope, Denies numbness, Denies tingling and Denies weakness Endo Denies palpitations Physical Exam Vital Signs: Last Vital Signs Pulse 87 10/05/23 10:32 BP 122/68 10/05/23 10:32 Pulse Ox 98 10/05/23 10:32 Oxygen Delivery Method Room Air 10/05/23 10:32 BMI result Body Mass Index 35.8 Const General: comfortable and no acute distress Orientation/consciousness: patient oriented x3 HEENT Other: Unremarkable Head: Yes normal to inspection Neck Neck: Yes normal visual inspection Chest Chest palpation & inspection: normal inspection of the chest Resp Other: Few basal crackles Cardio Palpation: normal PMI Heart sounds: S1 normal heart sound present, S2 normal heart sound present, no gallops, no murmurs and no rubs GI Palpation (GI): Soft to palpation Back/Spine/Pelvis Other: unremarkable Skin General skin exam: no rashes or lesions noted Neuro General: patient oriented x3 Extrem General: Yes normal to inspection Psych Mental Status: mental status grossly normal Assessment & Plan Assessment & Plan (1) Congestive heart failure: Code(s): I50.9 - Heart failure, unspecified Category: Medical Plan: Recent hospitalization at [facility] for congestive heart failure. Now on diuretics. Seems better. Obtain echocardiogram/stress test. Precipitating factor not clear. Positive dietary indiscretion as it apparently happened after a get together during . (2) PAF (paroxysmal atrial fibrillation): Code(s): I48.0 - Paroxysmal atrial fibrillation Category: Medical Plan: Continue metoprolol and diltiazem. Previously had taken verapamil but there was a cost issue. Tried Multaq but lot of side effects. Then went to EP for ablation consideration but decided against it. Continue Eliquis. There is a history of GI bleeding but nothing recently. 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 Status post blood transfusions. Endoscopy had then revealed duodenal ulcers. No recent issues. (4) Aortic calcification: Code(s): I70.0 - Atherosclerosis of aorta Category: Medical Plan: Clinically, no angina. A prior abdominal CT shows extensive aortoiliac calcification. Continue statins. (5) Essential hypertension: Code(s): I10 - Essential (primary) hypertension Category: Medical Plan: Stable. No changes. Orders: Orders NM cardiolite stress test Today R07.2 - Precordial pain CA echo transthoracic complete Today I50.9 - Heart failure, unspecified CA lexiscan stress w ángel Today I20.9 - Angina pectoris, unspecified Medications: New furosemide (Lasix) 20 mg PO DAILY 90 tabs 3RF
== END 2023-10-05 11:01 | disposition home or self-care (01) ==
PROVIDERS: PCP Internal Medicine; Visit Provider Internal Medicine
DX: I50.9 Heart failure, unspecified (principal); I48.0 Paroxysmal atrial fibrillation; K26.4 Chronic or unspecified duodenal ulcer with hemorrhage; I70.0 Atherosclerosis of aorta; I10 Essential (primary) hypertension
CPT/HCPCS: 99214

== ENCOUNTER → 2023-11-10 08:06 | Outpatient (REF) | payer MEDICARE, SELFPAY ==
--- NOTE | ~2023-11-10 | NM_ITS ---
Lexiscan Myocardial perfusion study Indication: Chest pain, assess for ischemia Technique: The patient was brought in for a Lexiscan perfusion study on 11/10/2023 and was injected 0.4 mg of Lexiscan intravenously. Within a minute of this injection 30 mCi of sestamibi was given intravenously. Images were obtained using the SPECT gamma camera interlaced with the gating device. Images were obtained in supine position. Resting perfusion study was performed on 11/11/2023. Patient was administered 30 mCi of sestamibi intravenously at rest. Images were then obtained in supine position. Images were processed with the software and compared side to side in short axis, horizontal long axis and vertical long axis views. Total DLP 163mGy-cm. Findings: Raw acquisition reviewed. Arms by the patient's side. The stress perfusion study showed mildly diminished tracer uptake in the distal part of anterior wall. With CT attenuation correction, there is overall improved tracer uptake but slightly reduced in the distal anterior wall. The gated study shows normal LV systolic function with calculated LVEF of 65%. LV cavity is normal in size. The gated study shows normal wall thickening and contraction of segments. Resting study shows diminished tracer uptake at the apex and distal lateral wall. With CT attenuation correction, there is reduced uptake in the distal anterior wall but improved elsewhere. Gating not performed during stress. The findings are consistent with reduced tracer uptake in the distal part of anterior wall, adjacent lateral wall but with normal contractility. NM/NM cardiolite stress test Impression: 1. Myocardial perfusion imaging study shows no definitive evidence of any ischemia or infarction. Fixed distal anterior defect could be artifactual as there is normal contractility. 2. Gated LVEF is 65% during stress. EKG component of the test reported separately.
--- NOTE | 2023-11-10 08:11 | CA_ITS ---
Transthoracic Echocardiogram Patient (Last, First, Middle): Rosenda Butler L Gender: Female Date of : 1945 Age: 78 Procedure Date: 11/10/2023 Procedure Type: Transthoracic Echocardiogram Location: OP Height: 154.94 cm Weight: 86.18 kg BSA: 1.85 m2 Heart Rate: bpm BP: 122 / 74 mmHg Apartment Leasing Manager: CHANTAL Referring MD: Melquiades Younger MD Symptoms: I50.9 - Heart failure, unspecified Study Quality: Fair ECG Rhythm: Atrial Fibrillation Conclusions: - The left ventricular systolic function is normal. The visually estimated ejection fraction is between 55-60%. - There is moderately increased left ventricular wall thickness. - The left atrium is moderately dilated. - No obvious valvular pathology seen on this study. Findings Left Ventricle Normal left ventricular cavity size. There is moderately increased left ventricular wall thickness. The left ventricular systolic function is normal. The visually estimated ejection fraction is between 55-60%. Diastolic function is indeterminate on the basis of available data. Right Ventricle Normal right ventricular cavity size. There is mildly decreased right ventricular systolic function. Atria The left atrium is moderately dilated. The right atrium is normal in size. Aortic Valve There is a normal trileaflet aortic valve. There is no aortic valve stenosis. There is no aortic valve regurgitation. Mitral Valve The mitral valve appears normal. There is trace mitral valve regurgitation. There is no mitral valve stenosis. Pulmonic Valve The pulmonic valve is likely normal. Tricuspid Valve Normal tricuspid valve structure. There is trace tricuspid valve regurgitation. There is no evidence of pulmonary hypertension. Great Vessels The sinuses of valsalva and asc aorta are normal in size. Venous The inferior vena cava is normal in size and collapses greater than 50% with inspiration. Pericardium/Pleural There is a trivial pericardial effusion. Prior Study Comparison No significant change compared to prior study dated: 12/11/2020. Recommendations, Care & Conclusions No obvious valvular pathology seen on this study. Measurements 2D Linear Measurements IVSd: 1.37 0.6-0.9/0.6-1.0 cm LVIDd: 3.87 3.9-5.3/4.2-5.9 cm LVIDd Index: 2.09 2.4-3.2/2.2-3.1 cm/m2 LVIDs: 2.66 2.0-3.6 cm LVPWd: 1.27 0.7-1.1 cm LA Diam: 3.90 2.7-3.8/3.0-4.0 cm LAIDs Index: 2.11 1.5-2.3 cm/m2 LV Mass: 226.65 67-162/88-224 g LV Mass Index: 122.51 43-95/49-115 g/m2 LVOT Diam: 1.90 3.0+(-)1.3 cm 2D Systolic Function EF 4C: 61.30 >55% EF 2C: 50.30 >55% EF BiP: 57.60 >55% Mitral Valve MV Pk E: 1.19 MV Decel Time: 165.00 E'Lateral: 9.73 E'Medial: 7.85 E/E' Med: 15.20 E/E' Lat: 12.20 PHT: 48.00 MVA PHT: 4.58 Decel Sandoval: 7.49 Aortic Valve AoV Pk Aniket: 1.04 AoV Mn Aniket: 0.78 AoV VTI: 0.24 AoV Pk Grad: 4.00 Aov Mn Grad: 3.00 TAQUERIA Cont.VTI: 2.19 LVOT LVOT Pk Aniket: 0.73 LVOT Mn Aniket: 0.51 LVOT VTI: 0.18 LVOT Pk Grad: 2.00 LVOT Mn Grad: 1.00 LVOT Diam: 1.90 LVOT Area: 2.84 Diastolic Function MV Pk E: 1.19 E'Medial: 7.85 E/E' Med: 15.20 E' Laterial: 9.73 E/E' Lat: 12.20 Right Ventricle TAPSE (mm): 16.80 TVS' Aniket: 8.83 Tricuspid Valve TR Pk Aniket: 2.23 TR Pk Grad: 20.00 RA Press: 3.00 RVSP: 23.00 Great Vessels Aorta Sinus of Valsalva: 3.21 2.0-3.5 cm Updated in Other Vendor System with Status of Final Melquiades Younger MD electronically signed on 11/11/2023 12:35:14 PM with status of Final
--- NOTE | 2023-11-10 08:11 | CA_ITS ---
Acquisition Time: 2023-11-10 09:58:30 Total Exercise Time: 00:02:00 Test Indications: ANGINA Medications: ALLOPURINOL ELIQUIS CRESTOR METOPROLOL Protocol: LEXISCAN Max HR: 098 BPM 70% of Pred: 140 BPM Max BP: 140/068 mmHG Max Work Load: 1.0 METS Pharmacological stress test with Lexiscan injection while sitting, with mild SOB, no chest discomfort, with isolated PVCs, with normotensive response to injection, with nondiagnoisitic EKGs. Aminophylline 75mg IVp given to reverse Lexiscan. Nuclear images pending. Test reviewed with Dr. Younger. Referred By: Melquiades Younger Overread By: Anny Kingsley
== END ==
LOC: HO.CARD 08:06
PROVIDERS: PCP Internal Medicine; Visit Provider Internal Medicine
DX: R07.2 Precordial pain (principal); I20.9 Angina pectoris, unspecified; I50.9 Heart failure, unspecified
CPT/HCPCS: 78452; 93017; 93306; A9500; J0280; J2785

== ENCOUNTER → 2023-11-10 08:11 | Outpatient (BNV) | payer MEDICARE, SELFPAY | PROVIDERS: PCP Internal Medicine; Visit Provider Nurse Practitioner | DX: I50.9 Heart failure, unspecified (principal); R93.1 Abnormal findings on diagnostic imaging of heart and coronary circulation | CPT/HCPCS: 78452; 93016; 93018; 93350 ==

== ENCOUNTER → 2023-12-01 11:02 | Outpatient (REF) | payer MEDICARE, SELFPAY ==
--- NOTE | 2023-12-01 11:04 | HM_ITS ---
Conclusion: 1. Patient was monitored for total period of 2 days and 22 hours 2. Baseline was atrial fibrillation with average heart of 85 beats per minute with overall adequate rate control 3. No significant pauses noted 4. No patient marked counters MTDD
== END ==
LOC: HO.CARD 11:02
PROVIDERS: PCP Internal Medicine; Visit Provider Internal Medicine
DX: I48.0 Paroxysmal atrial fibrillation (principal)
CPT/HCPCS: 93242

== ENCOUNTER → 2023-12-01 11:04 | Outpatient (BNV) | payer MEDICARE, SELFPAY | PROVIDERS: PCP Internal Medicine; Visit Provider Internal Medicine Cardiovascular Disease | DX: I48.91 Unspecified atrial fibrillation (principal) | CPT/HCPCS: 93244 ==

== ENCOUNTER 2023-12-09 10:08 | Outpatient (AMB) | payer MEDICARE, SELFPAY ==
[2023-12-09 10:11] VITALS: BP 120/62; PULSE 84; BMI 35.0
--- NOTE | 2023-12-09 10:11 | MHC.OFFVIS ---
Vital Signs 12/09/23 10:11 Height 5 ft 1 in Weight 185 lb 3.013 oz BMI 35.0 BP 120/62 Blood Pressure Location Lt brachial Position Sitting Pulse 84 Pulse Source Monitor Intake Visit Reasons: 2 mth f/up testing Allergies irbesartan [IRBESARTAN] Allergy (Intermediate, Verified 08/20/23 11:01) RASH latex [LATEX] Allergy (Intermediate, Verified 08/20/23 11:01) RASH NSAIDS (Non-Steroidal Anti-Inflamma [NSAIDS (NON-STEROIDAL ANTI-INFLAMMA] Allergy (Intermediate, Verified 08/20/23 11:01) STAGE 3 KIDNEY DISEASE sulfamethoxazole [From BACTRIM] Allergy (Intermediate, Verified 08/20/23 11:01) RASH trimethoprim [From BACTRIM] Allergy (Intermediate, Verified 08/20/23 11:01) RASH valsartan [From DIOVAN] Allergy (Intermediate, Verified 08/20/23 11:01) HIVE,DIFFICULTY BREATHING lisinopril [LISINOPRIL] Allergy (Unknown, Verified 08/20/23 11:01) PER MD losartan [LOSARTAN] Allergy (Unknown, Verified 08/20/23 11:01) PER MD Gbzlhaf-JGB-TdB Reductase Inhibitor [FEZCKUS-RSS-RPU REDUCTASE INHIBITOR] Allergy (Unknown, Verified 08/20/23 11:01) PER MD meperidine [From Demerol] Adverse Reaction (Mild, Verified 08/20/23 11:01) VOMITING BANDAIDS Allergy (Unknown, Uncoded 05/21/23 11:10) RASH ALL NARCOTICS Adverse Reaction (Unknown, Uncoded 05/21/23 11:10) NAUSEA AND VOMITING Medication List - Last Reconciled 12/09/23 by Melquiades Younger MD allopurinol 100 mg PO DAILY apixaban (Eliquis) 2.5 mg PO BID clotrimazole-betamethasone 1-0.05 % appl topical coenzyme Q10 (Co Q-10) 100 mg PO DAILY diltiazem HCl CD 180 mg PO DAILY ezetimibe 10 mg PO DAILY furosemide (Lasix) 20 mg PO DAILY metoprolol succinate ER 50 mg PO BID miscellaneous medical supply 1 ea miscellaneous DAILY rosuvastatin (Crestor) 20 mg PO DAILY HPI Comments Details: Rosenda returns for follow-up. Apparently recent hospitalization at [facility] for congestive heart failure. Otherwise, she has history of atrial fibrillation. To recall, in 2019, she was admitted for sigmoid diverticulitis and underwent resection. In that context, she had atrial fibrillation. She converted back to sinus without any interventions. She was sent home on Eliquis. Then she had gastrointestinal bleeding and was admitted again. Endoscopy had shown duodenal ulcers and she was sent home on PPIs. Eliquis was stopped at that time but more recently, she is back on Eliquis. She was maintained on beta-blockers as well as verapamil. Verapamil was apparently too expensive and she is now on diltiazem. She has seen EP for possible ablation but decided against it. Otherwise, she was feeling short of breath few weeks back and that led to hospitalization at [facility]. She was treated for congestive heart failure and discharged. Now she is on diuretics. Feeling better. No new concerns since last seen. She seems to be doing okay. [facility] Medical History Sleep apnea Essential hypertension Hemorrhage of gastrointestinal tract, unspecified Aortic calcification Duodenal ulcer PAF (paroxysmal atrial fibrillation) Surgical History History of bunionectomy History of esophagogastroduodenoscopy (EGD) H/O colonoscopy History of colectomy History of foot surgery History of parathyroidectomy History of hysterectomy Family History Father No problems noted. Mother No problems noted. Brother FH: testicular cancer Social History Alcohol intake: current Alcohol intake frequency: holidays/special occasions only Alcohol type: wine Patient Tobacco Use Status: Former Tobacco user Tobacco use type: Cigarette Cigarettes Per Day: 20 Years Smoked: 30 Review of Systems Const Denies weakness ENT Denies dizziness Card Denies chest pain, Denies chest pain with activity, Denies syncope, Denies rapid heart rate, Denies pedal edema, Denies edema, Denies leg edema, Denies lightheadedness, Denies palpitations, Denies dyspnea, Denies dyspnea on exertion and Denies orthopnea Resp Denies cough, Denies dyspnea and Denies dyspnea on exertion GI Denies hematochezia and Denies change in stool character Musc Denies abnormal gait, Denies muscle cramps, Denies muscle weakness, Denies numbness, Denies radiating pain into limb and Denies tingling Neuro Denies abnormal gait, Denies dizziness, Denies syncope, Denies numbness, Denies tingling and Denies weakness Endo Denies palpitations Physical Exam Vital Signs: Last Vital Signs Pulse 84 12/09/23 10:11 BP 120/62 12/09/23 10:11 BMI result Body Mass Index 35.0 Const General: comfortable and no acute distress Orientation/consciousness: patient oriented x3 HEENT Other: Unremarkable Head: Yes normal to inspection Neck Neck: Yes normal visual inspection Chest Chest palpation & inspection: normal inspection of the chest Resp Auscultation: clear to auscultation bilaterally Cardio Palpation: normal PMI Heart sounds: S1 normal heart sound present, S2 normal heart sound present, no gallops, no murmurs and no rubs GI Palpation (GI): Soft to palpation Back/Spine/Pelvis Other: unremarkable Skin General skin exam: no rashes or lesions noted Neuro General: patient oriented x3 Extrem General: Yes normal to inspection Psych Mental Status: mental status grossly normal Office Procedures EKG Details: EKG with atrial fibrillation at a rate of 84/Min; low voltage complexes; can not exclude old inferior infarct. [id number], Complete Assessment & Plan Assessment & Plan (1) Congestive heart failure: Code(s): I50.9 - Heart failure, unspecified Category: Medical Qualifiers: Heart failure type: diastolic Heart failure chronicity: chronic Qualified Code(s): I50.32 - Chronic diastolic (congestive) heart failure Plan: Recent hospitalization at [facility] for congestive heart failure. Now on diuretics. Seems better. Echocardiogram with LVEF of 55-60%; moderate LVH and dilated left atrium. Otherwise unremarkable. Perfusion imaging without any significant findings. (2) PAF (paroxysmal atrial fibrillation): Code(s): I48.0 - Paroxysmal atrial fibrillation Category: Medical Plan: Continue metoprolol and diltiazem. Previously had taken verapamil but there was a cost issue. Tried Multaq but lot of side effects. Then went to EP for ablation consideration but decided against it. Continue Eliquis. There is a history of GI bleeding but nothing recently. 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 Status post blood transfusions. Endoscopy had then revealed duodenal ulcers. No recent issues. (4) Aortic calcification: Code(s): I70.0 - Atherosclerosis of aorta Category: Medical Plan: Clinically, no angina. A prior abdominal CT shows extensive aortoiliac calcification. Continue statins. Lipids may be followed through her own PCP. (5) Essential hypertension: Code(s): I10 - Essential (primary) hypertension Category: Medical Plan: Stable. No changes. Coding Level of Care Code Est Pt Level 4 (00326) Diagnoses Chronic diastolic congestive heart failure I50.32 Heart failure type: diastolic Heart failure chronicity: chronic PAF (paroxysmal atrial fibrillation) I48.0 Gastrointestinal hemorrhage associated with duodenal ulcer K26.4 GI bleed type/associated pathology: duodenal ulcer Aortic calcification I70.0 Essential hypertension I10 CPT Codes EKG - CPT: [id number], Complete ([id number])
== END 2023-12-09 11:08 | disposition home or self-care (01) ==
PROVIDERS: PCP Internal Medicine; Visit Provider Internal Medicine
DX: I50.32 Chronic diastolic (congestive) heart failure (principal); I48.0 Paroxysmal atrial fibrillation; K26.4 Chronic or unspecified duodenal ulcer with hemorrhage; I70.0 Atherosclerosis of aorta; I10 Essential (primary) hypertension
CPT/HCPCS: 93010; 99214

== ENCOUNTER → 2023-12-09 10:08 | Outpatient (BNVA) | payer MEDICARE, SELFPAY | PROVIDERS: PCP Internal Medicine; Visit Provider Internal Medicine | DX: I11.0 Hypertensive heart disease with heart failure (principal); I50.32 Chronic diastolic (congestive) heart failure; I48.0 Paroxysmal atrial fibrillation; K26.4 Chronic or unspecified duodenal ulcer with hemorrhage; I70.0 Atherosclerosis of aorta | CPT/HCPCS: 93005; 99212 ==

== ENCOUNTER 2024-02-23 09:00 | Outpatient (REF) | payer MEDICARE, SELFPAY ==
[2024-02-23 10:40] LABS: Alanine Aminotransferase 22 U/L (0-31); Alkaline Phosphatase 78 U/L (39-117); Anion Gap 12 (12-20); Aspartate Amino Transferase 26 U/L (5-31); Bilirubin Total 0.6 mg/dL (0.0-1.0); Blood Urea Nitrogen 18 mg/dL (9-16); Calcium 9.9 mg/dL (8.4-10.2); Carbon Dioxide 28 mmol/L (22-29); Chloride 106 mmol/L (96-108); Estimated Glomerular Filt Rate 42; Glucose Random 101 mg/dL (60-115); Potassium 4.7 mmol/L (3.3-5.1); Sodium 141 mmol/L (135-145); Total Protein 6.7 g/dL (6.5-8.0); Uric Acid 5.8 mg/dL (2.4-5.7)
== END 2024-02-23 09:01 | disposition home or self-care (01) ==
LOC: HO.HMGCLDS 09:00
PROVIDERS: PCP Internal Medicine; Visit Provider Internal Medicine Hypertension Specialist
DX: N18.9 Chronic kidney disease, unspecified (principal); N18.30 Chronic kidney disease, stage 3 unspecified
CPT/HCPCS: 36415; 80053; 84550

== ENCOUNTER 2024-02-29 10:14 | Outpatient (AMB) | payer MEDICARE, SELFPAY ==
[2024-02-29 10:16] VITALS: BP 128/72; PULSE 80; O2SAT 96; BMI 35.0
--- NOTE | 2024-02-29 10:16 | HO.NEPHOV ---
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 Accompanied by: Self / Same As Patient Allergies irbesartan [IRBESARTAN] Allergy (Intermediate, Verified 02/29/24 10:18) RASH latex [LATEX] Allergy (Intermediate, Verified 02/29/24 10:18) RASH NSAIDS (Non-Steroidal Anti-Inflamma [NSAIDS (NON-STEROIDAL ANTI-INFLAMMA] Allergy (Intermediate, Verified 02/29/24 10:18) STAGE 3 KIDNEY DISEASE sulfamethoxazole [From BACTRIM] Allergy (Intermediate, Verified 02/29/24 10:18) RASH trimethoprim [From BACTRIM] Allergy (Intermediate, Verified 02/29/24 10:18) RASH valsartan [From DIOVAN] Allergy (Intermediate, Verified 02/29/24 10:18) HIVE,DIFFICULTY BREATHING lisinopril [LISINOPRIL] Allergy (Unknown, Verified 02/29/24 10:18) PER MD losartan [LOSARTAN] Allergy (Unknown, Verified 02/29/24 10:18) PER MD Jgttpjo-IRV-CoP Reductase Inhibitor [XQAINWY-IDS-BJL REDUCTASE INHIBITOR] Allergy (Unknown, Verified 02/29/24 10:18) PER MD meperidine [From Demerol] Adverse Reaction (Mild, Verified 02/29/24 10:18) VOMITING BANDAIDS Allergy (Unknown, Uncoded 05/21/23 11:10) RASH ALL NARCOTICS Adverse Reaction (Unknown, Uncoded 05/21/23 11:10) NAUSEA AND VOMITING Medication List - Last Reconciled 02/29/24 by Aguilar Gudino MD allopurinol 100 mg PO DAILY apixaban (Eliquis) 2.5 mg PO BID cholecalciferol (vitamin D3) 25 mcg PO DAILY clotrimazole-betamethasone 1-0.05 % appl topical coenzyme Q10 (Co Q-10) 100 mg PO DAILY diltiazem HCl CD 180 mg PO DAILY ezetimibe 10 mg PO DAILY fexofenadine (Heidi Allergy) 180 mg PO DAILY PRN furosemide (Lasix) 20 mg PO DAILY metoprolol succinate ER 50 mg PO BID miscellaneous medical supply 1 ea miscellaneous DAILY rosuvastatin (Crestor) 20 mg PO DAILY HPI Comments Details: 78-year-old woman with a history of hypertension CKD. Serum creatinine is usually around 1.3-1.4 mg/dL. She has history of atrial fibrillation which seems to be controlled. She was offered watchman and she has refused. Sometimes she feels lightheaded when she tries to stand up. There has been a bump in serum creatinine up to 1.7 by in March and be as of April creatinine is down to 1.6 which is still higher than her baseline. No urine symptoms. 08/20/23: Feels better; Still with A.Fib ;Seen by Cardiology- she is not planning to do ablation 02/29/24 [place] [facility] [place]. Currently doing well. [facility] Medical History Sleep apnea Essential hypertension Hemorrhage of gastrointestinal tract, unspecified Aortic calcification Duodenal ulcer PAF (paroxysmal atrial fibrillation) Surgical History History of bunionectomy History of esophagogastroduodenoscopy (EGD) H/O colonoscopy History of colectomy History of foot surgery History of parathyroidectomy History of hysterectomy Family History Father No problems noted. Mother No problems noted. Brother FH: testicular cancer Social History Alcohol intake: current Alcohol intake frequency: holidays/special occasions only Alcohol type: wine Patient Tobacco Use Status: Former Tobacco user Tobacco use type: Cigarette Cigarettes Per Day: 20 Years Smoked: 30 Physical Exam Vital Signs: BMI result Body Mass Index 35.0 Const General: comfortable; No acute distress Orientation/consciousness: patient oriented x3 Eyes General: appearance normal, both eyes and all related structures Visual Cornejo: normal visual cornejo by confrontation Neck Neck: Yes supple and Yes no JVD Resp Effort & Inspection: normal respiratory effort and respiratory effort not decreased Auscultation: rhonchi Cardio Palpation: no palpable S3 and no palpable S4 Heart sounds: no rubs GI Inspection: Yes normal to inspection Palpation (GI): Soft to palpation Percussion: Yes normal to percussion Auscultation: normal bowel sounds General: Yes no CVA tenderness Back/Spine/Pelvis Back: no CVA tenderness Skin General skin exam: no petechiae and no purpura Neuro General: patient oriented x3 and no focal motor deficits Extrem General: No clubbing and No edema Results Reviewed Nephrology Results: Hgb 10.8 g/dl (12.0-16.0) L 07/31/23 WBC 5.5 X10*3/uL (4.8-10.8) 07/31/23 Plt Count 324 X10*3/uL (160-400) 07/31/23 Sodium 141 mmol/L (135-145) 02/23/24 Potassium 4.7 mmol/L (3.3-5.1) 02/23/24 Chloride 106 mmol/L (96-108) 02/23/24 Carbon Dioxide 28 mmol/L (22-29) 02/23/24 BUN 18 mg/dL (9-16) H 02/23/24 Creatinine 1.23 mg/dL (0.5-1.4) 02/23/24 Calcium 9.9 mg/dL (8.4-10.2) 02/23/24 Urine Creatinine 143.70 mg/dL 07/31/23 Assessment & Plan Assessment & Plan (1) Essential hypertension: Code(s): I10 - Essential (primary) hypertension Category: Medical (2) Stage III chronic kidney disease: Code(s): N18.30 - Chronic kidney disease, stage 3 unspecified Category: Surgical (3) Hyperparathyroidism: Comment: Status post parathyroidectomy Code(s): E21.3 - Hyperparathyroidism, unspecified Category: Medical (4) Microalbuminuria: Code(s): R80.9 - Proteinuria, unspecified Category: Medical Plan: Continue with RAAS inhibition with Aldactazide Plan Elderly woman with stage III CKD in the setting of hypertension with a baseline creatinine 1.4 mg/dL has sustained SHAW. Cr up to 1.7 due to hypoperfusion Now back to baseline of 1.3 BP is well controlled NO change inmeds Continue to avoid nephrotoxic agents. Stable benign renal cyst A.fib abd CHF Management per cardiology Stay on low slat diet ( avoid pretzels!) Coding Level of Care Code Est Pt Level 4 (67190) Diagnoses Essential hypertension I10 Stage III chronic kidney disease N18.30 Hyperparathyroidism E21.3 Microalbuminuria R80.9
== END 2024-02-29 10:32 | disposition home or self-care (01) ==
PROVIDERS: PCP Internal Medicine; Visit Provider Internal Medicine Hypertension Specialist
DX: I10 Essential (primary) hypertension (principal); N18.30 Chronic kidney disease, stage 3 unspecified; E21.3 Hyperparathyroidism, unspecified; R80.9 Proteinuria, unspecified
CPT/HCPCS: 99214

== ENCOUNTER → 2024-02-29 10:14 | Outpatient (BNVA) | payer MEDICARE, SELFPAY | PROVIDERS: PCP Internal Medicine; Visit Provider Internal Medicine Hypertension Specialist | DX: I12.9 Hypertensive chronic kidney disease with stage 1 through stage 4 chronic kidney disease, or unspecified chronic kidney disease (principal); N18.30 Chronic kidney disease, stage 3 unspecified; E21.3 Hyperparathyroidism, unspecified; R80.9 Proteinuria, unspecified | CPT/HCPCS: 99212 ==

== ENCOUNTER 2024-06-06 10:39 | Outpatient (AMB) | payer MEDICARE, SELFPAY ==
[2024-06-06 10:52] VITALS: BP 108/68; PULSE 85; BMI 34.8
--- NOTE | 2024-06-06 10:52 | MHC.OFFVIS ---
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: No Accompanied by: Self / Same As Patient Allergies irbesartan [IRBESARTAN] Allergy (Intermediate, Verified 02/29/24 10:18) RASH latex [LATEX] Allergy (Intermediate, Verified 02/29/24 10:18) RASH NSAIDS (Non-Steroidal Anti-Inflamma [NSAIDS (NON-STEROIDAL ANTI-INFLAMMA] Allergy (Intermediate, Verified 02/29/24 10:18) STAGE 3 KIDNEY DISEASE sulfamethoxazole [From BACTRIM] Allergy (Intermediate, Verified 02/29/24 10:18) RASH trimethoprim [From BACTRIM] Allergy (Intermediate, Verified 02/29/24 10:18) RASH valsartan [From DIOVAN] Allergy (Intermediate, Verified 02/29/24 10:18) HIVE,DIFFICULTY BREATHING lisinopril [LISINOPRIL] Allergy (Unknown, Verified 02/29/24 10:18) PER MD losartan [LOSARTAN] Allergy (Unknown, Verified 02/29/24 10:18) PER MD Kpokevm-ENR-FeB Reductase Inhibitor [VUXGSNO-PMC-JQX REDUCTASE INHIBITOR] Allergy (Unknown, Verified 02/29/24 10:18) PER MD meperidine [From Demerol] Adverse Reaction (Mild, Verified 02/29/24 10:18) VOMITING BANDAIDS Allergy (Unknown, Uncoded 05/21/23 11:10) RASH ALL NARCOTICS Adverse Reaction (Unknown, Uncoded 05/21/23 11:10) NAUSEA AND VOMITING Medication List - Last Reconciled 06/06/24 by Melquiades Younger MD allopurinol 100 mg PO DAILY apixaban (Eliquis) 2.5 mg PO BID cholecalciferol (vitamin D3) 25 mcg PO DAILY clotrimazole-betamethasone 1-0.05 % appl topical coenzyme Q10 (Co Q-10) 100 mg PO DAILY diltiazem HCl CD 180 mg PO DAILY ezetimibe 10 mg PO DAILY fexofenadine (Heidi Allergy) 180 mg PO DAILY PRN furosemide (Lasix) 20 mg PO DAILY metoprolol succinate ER 50 mg PO BID miscellaneous medical supply 1 ea miscellaneous DAILY rosuvastatin (Crestor) 20 mg PO DAILY HPI Comments Details: Rosenda returns for follow-up of various cardiac issues. To recall, in 2019, she was admitted for sigmoid diverticulitis and underwent resection. In that context, she had atrial fibrillation. She converted back to sinus without any interventions. She was sent home on Eliquis. Then she had gastrointestinal bleeding and was admitted again. Endoscopy had shown duodenal ulcers and she was sent home on PPIs. Eliquis was stopped at that time but more recently, she is back on Eliquis. She was maintained on beta-blockers as well as verapamil. Verapamil was apparently too expensive and she is now on diltiazem. She has seen EP for possible ablation but decided against it. After that, 1 hospitalization at [facility] for congestive heart failure but now stable on diuretics. Overall, she states she feels good. No new concerns. [facility] Medical History Sleep apnea Essential hypertension Hemorrhage of gastrointestinal tract, unspecified Aortic calcification Duodenal ulcer PAF (paroxysmal atrial fibrillation) Surgical History History of bunionectomy History of esophagogastroduodenoscopy (EGD) H/O colonoscopy History of colectomy History of foot surgery History of parathyroidectomy History of hysterectomy Family History Father No problems noted. Mother No problems noted. Brother FH: testicular cancer Social History Alcohol intake: current Alcohol intake frequency: holidays/special occasions only Alcohol type: wine Patient Tobacco Use Status: Former Tobacco user Tobacco use type: Cigarette Cigarettes Per Day: 20 Years Smoked: 30 Review of Systems Const Denies chills, Denies fatigue, Denies fever(s), Denies weight gain and Denies weight loss ENT Denies dizziness Card Denies chest pain, Denies leg edema, Denies lightheadedness, Denies palpitations, Reports dyspnea on exertion, Denies orthopnea and Denies other Resp Denies cough and Reports dyspnea on exertion GI Denies hematochezia and Denies change in stool character Musc Denies abnormal gait, Denies muscle weakness, Denies numbness, Denies radiating pain into limb and Denies tingling Neuro Denies abnormal gait, Denies dizziness, Denies numbness and Denies tingling Endo Denies fatigue and Denies palpitations Physical Exam Vital Signs: Last Vital Signs Pulse 85 06/06/24 10:52 BP 108/68 06/06/24 10:52 BMI result Body Mass Index 34.8 Const General: comfortable and no acute distress Orientation/consciousness: patient oriented x3 HEENT Other: Unremarkable Head: Yes normal to inspection Neck Neck: Yes normal visual inspection Chest Chest palpation & inspection: normal inspection of the chest Resp Auscultation: clear to auscultation bilaterally Cardio Palpation: normal PMI Heart sounds: S1 normal heart sound present, S2 normal heart sound present, no gallops, no murmurs and no rubs GI Palpation (GI): Soft to palpation Back/Spine/Pelvis Other: unremarkable Skin General skin exam: no rashes or lesions noted Neuro General: patient oriented x3 Extrem General: Yes normal to inspection Psych Mental Status: mental status grossly normal Assessment & Plan Assessment & Plan (1) Congestive heart failure: Code(s): I50.9 - Heart failure, unspecified Category: Medical Qualifiers: Heart failure chronicity: chronic Heart failure type: diastolic Qualified Code(s): I50.32 - Chronic diastolic (congestive) heart failure Plan: Stable on diuretics. Echocardiogram with LVEF of 55-60%; moderate LVH and dilated left atrium. Otherwise unremarkable. Perfusion imaging without any significant findings. (2) Persistent atrial fibrillation: Code(s): I48.19 - Other persistent atrial fibrillation Category: Medical Plan: ontinue metoprolol and diltiazem. Previously had taken verapamil but there was a cost issue. Tried Multaq but lot of side effects. Then went to EP for ablation consideration but decided against it. Continue Eliquis. There is a history of GI bleeding but nothing recently. Per age and kidney function, may go up to 5 mg b.i.d.. 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 Status post blood transfusions. Endoscopy had then revealed duodenal ulcers. No recent issues. (4) Aortic calcification: Code(s): I70.0 - Atherosclerosis of aorta Category: Medical Plan: Clinically, no angina. A prior abdominal CT shows extensive aortoiliac calcification. Continue statins. Lipids may be followed through her own PCP. (5) Essential hypertension: Code(s): I10 - Essential (primary) hypertension Category: Medical Plan: Stable. No changes. Medications: New apixaban (Eliquis) 5 mg PO BID 90 days 180 tabs 3RF Coding Level of Care Code Est Pt Level 4 (98534) Diagnoses Chronic diastolic congestive heart failure I50.32 Heart failure chronicity: chronic Heart failure type: diastolic Persistent atrial fibrillation I48.19 Gastrointestinal hemorrhage associated with duodenal ulcer K26.4 GI bleed type/associated pathology: duodenal ulcer Aortic calcification I70.0 Essential hypertension I10
== END 2024-06-06 11:10 | disposition home or self-care (01) ==
PROVIDERS: PCP Internal Medicine; Visit Provider Internal Medicine
DX: I50.32 Chronic diastolic (congestive) heart failure (principal); I48.19 Other persistent atrial fibrillation; K26.4 Chronic or unspecified duodenal ulcer with hemorrhage; I70.0 Atherosclerosis of aorta; I10 Essential (primary) hypertension
CPT/HCPCS: 99214

== ENCOUNTER → 2024-06-06 10:39 | Outpatient (BNVA) | payer MEDICARE, SELFPAY | PROVIDERS: PCP Internal Medicine; Visit Provider Internal Medicine | DX: I11.0 Hypertensive heart disease with heart failure (principal); I50.32 Chronic diastolic (congestive) heart failure; I48.19 Other persistent atrial fibrillation; I70.0 Atherosclerosis of aorta; K26.4 Chronic or unspecified duodenal ulcer with hemorrhage | CPT/HCPCS: 99212 ==

== ENCOUNTER 2024-08-24 08:49 | Outpatient (REF) | payer MEDICARE, SELFPAY ==
--- OUTSIDE RECORDS SUMMARY | 2024-08-24 09:22 | XMS_ITS | Clinical Summary ---
Author Organization [facility] Address [address] [place] [address] Phone Care Team Providers Care Roofing Apprentice Name Role Phone Ángel Multani MD Primary Care Provider [phone] Allergies Active Allergy Reactions Criticality Noted Date Comments Irbesartan Rash Low 04/16/2012 Statins Other (see comments) 08/17/2020 Valsartan Other (see comments) 08/17/2020 Medications fexofenadine (WON) 180 MG tablet Take 1 tablet by mouth 1 (one) time each day Active Multiple Vitamin (multivitamin) capsule Take 1 capsule by mouth 1 (one) time each day Active ezetimibe (ZETIA) 10 MG tablet Take 1 tablet by mouth 1 (one) time each day Active rosuvastatin (CRESTOR) 10 MG tablet Take 20 mg by mouth 1 (one) time each day Active spironolactone- hydroCHLOROthia zide (ALDACTAZIDE) 25-25 MG per tablet Take 1 tablet by mouth 1 (one) time each day Active omeprazole (PriLOSEC) [address] capsule Take 20 mg by mouth 1 (one) time each day Do not crush or chew. Active Turmeric 500 MG capsule Take 1 capsule by mouth 1 (one) time each day Active Liberty-3 Krill Oil 1000 MG capsule Take 1 capsule by mouth 1 (one) time each day Active Eliquis 2.5 MG tablet 07/09/2021 Active metoprolol succinate XL (TOPROL XL) 25 MG 24 hr tablet 50 mg 05/28/2021 Act maru allopurinol (ZYLOPRIM) 100 MG tablet Take 100 mg by mouth 1 (one) time each day 09/12/2021 Active dilTIAZem (Cardizem) 30 MG immediate release tabletIndicatio ns:Hypertensive heart disease without congestive heart failure Take 1 tablet (30 mg total) by mouth in the morning and 1 tablet (30 mg total) in the evening. 60 tablet 3 06/12/2022 Active Active Problems Problem Noted Date Diagnosed Date Chronic kidney disease stage 3 08/17/2020 Hypertensive heart disease without congestive he art failure 08/17/2020 Immunizations Name Administration Dates Next Due Pneumococcal Polysaccharide 09/23/2013 Family History Medical History Relation Comments Gout Father Hypertension Father Dementia Mother Heart disease Mother Hypertension Mother Cancer Sibling Relation Status Comments Father Alive Mother Alive Sibling Social History Tobacco Use Types Packs/Day Years Used Date Smoking Tobacco: Former Cigarettes Q uit: 06/15/1979 Smokeless Tobacco: Former Tobacco Cessation:Counseling Given: Not Answered Alcohol Use Standard Drinks/Week Comments Yes 0 (1 standard drink = 0.6 oz pure alcohol) Alcoholic Drinks/day: Occasional social drink Comments Unknown Sex and Gender Information Value Date Recorded Sex Assigned at Not on file Legal Sex Female 5:11 PM EST Gender Identity Not on file Sexual Orientation Not on file Last Filed Vital Signs Vital Sign Reading Time Taken Comments Blood Pressure 110/64 11/17/2022 1:32 PM EDT Pulse 57 11/17/2022 1:32 PM EDT Temperature - - Respiratory Rate - - Oxygen Saturation 95% 11/17/2022 1:32 PM EDT Inhaled Oxygen Concentration - - Weight 84.3 kg (185 lb 12.8 oz) 11/17/2022 1:32 PM EDT Height 160 cm (5' 3 ) 09/23/2018 12:00 PM EDT Body Mass Index 32.91 09/23/2018 12:00 PM EDT Plan of Treatment Health Maintenance Due Date Last Done Comments Pneumococcal Vaccine: 65+ Ye ars (2 of 2 - PCV) 09/23/2014 09/23/2013 Influenza Vaccine (#1) 2024 Hepatitis B Vaccine Aged Out No longe r eligible based on patient's age to complete this topic Insurance [facility] MEDICARE [facility] MED[facility] Care Teams Roofing Apprentice Relationship Specialty Start Date End Date Ángel Multani MD [address] [place] [address] PCP - General 06/25/20
--- OUTSIDE RECORDS SUMMARY | 2024-08-24 09:22 | XMS_ITS | Encounter Summary ---
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 Name Role Phone Ángel Multani MD Primary Care Provider [phone] Encounter Details Date Type Department Care Team (Late st Contact Info) Description 06/26/2022 Telephone [facility] [address] [facility] [address] [place] [address] Aguilar Gudino MD Social History Tobacco Use Types Packs/Day Years Used Date Smoking Tobacco: Former Cigarettes Q uit: 06/15/1979 Smokeless Tobacco: Former Alcohol Use Standard Drinks/Week Comments Yes 0 (1 standard drink = 0.6 oz pure alcohol) Alcoholic Drinks/day: Occasional social drink Comments Unknown Sex and Gender Information Value Date Recorded Sex Assigned at Not on file Legal Sex Female 5:11 PM EST Gender Identity Not on file Sexual Orientation Not on file documented as of this encounter Miscellaneous Notes * Telephone Encounter - Mary Jane Trujillo - 06/26/2022 11:37 AM EST Pt FYI, Her senior account clerk changed diltiazem to 120 mg ER Caps, 1 cap daily documented in this encounter Plan of Treatment Not on file documented as of this encounter Visit Diagnoses Not on filedocumented in this encounter Care Teams Oil Well Cable Tool Driller Relationship Specialty Start Date End Date Ángel Multani MD [address] [place] [address] PCP - General 06/25/20 documented as of this encounter
[2024-08-24 11:01] LABS: Appearance Urine Clear; Color Urine Yellow; Glucose Urine UA Negative (Negative); Leukocyte Esterase Urine Negative (Negative); Nitrite Urine Negative (Negative); Specific Gravity - Urine 1.025 (1.005-1.025); UMIC TRIGGER UA YES; Urine Blood Negative (Negative); Urine Ketones Negative (Negative); Urine Protein 300 (3+) mg/dL (Neg-Trace)
[2024-08-24 11:04] LABS: Bacteria Urine None Seen (None Seen); Hyaline Casts Urine 0-2 /LPF (0-2); RBC Urine 0-2 /HPF (0-2); Squamous Epithelial Cell Urine 0-2 /HPF (0-2)
[2024-08-24 11:10] LABS: Hematocrit 48.1 % (37.0-47.0); Mean Corpuscular HGB Conc 31.2 g/dl (31.0-35.0); Mean Corpuscular Hemoglobin 26.8 pg (27.0-33.0); Mean Platelet Volume 9.5 fL (9.4-12.3); Platelet Count 240 X10*3/uL (160-400); Red Blood Count 5.59 X10*6/uL (4.20-5.50); Red Cell Distribution Width 14.5 % (11.0-16.0); White Blood Count 4.3 X10*3/uL (4.8-10.8)
[2024-08-24 11:31] LABS: Creatinine Urine 153.03 mg/dL; Total Protein Urine Random 196 mg/dL (<12)
[2024-08-24 11:49] LABS: Alanine Aminotransferase 38 U/L (0-31); Albumin Level 3.9 g/dL (3.5-5.0); Alkaline Phosphatase 75 U/L (39-117); Anion Gap 13 (12-20); Aspartate Amino Transferase 31 U/L (5-31); Bilirubin Total 0.8 mg/dL (0.0-1.0); Blood Urea Nitrogen 31 mg/dL (9-16); Calcium 9.7 mg/dL (8.4-10.2); Carbon Dioxide 24 mmol/L (22-29); Chloride 111 mmol/L (96-108); Estimated Glomerular Filt Rate 44; Glucose Random 95 mg/dL (60-115); Potassium 4.4 mmol/L (3.3-5.1); Sodium 144 mmol/L (135-145); Total Protein 7.1 g/dL (6.5-8.0)
== END 2024-08-24 08:50 | disposition home or self-care (01) ==
LOC: HO.HMGCLDS 08:49
PROVIDERS: PCP Internal Medicine; Visit Provider Internal Medicine Hypertension Specialist
DX: N18.30 Chronic kidney disease, stage 3 unspecified (principal)
CPT/HCPCS: 36415; 80053; 81001; 81003; 82570; 84156; 85027

== ENCOUNTER 2024-08-29 10:38 | Outpatient (AMB) | payer MEDICARE, SELFPAY ==
[2024-08-29 10:40] VITALS: BP 134/78; PULSE 67; O2SAT 99; BMI 36.5
--- NOTE | 2024-08-29 10:40 | HO.NEPHOV ---
Vital Signs 08/29/24 10:40 Height 5 ft 1 in Weight 193 lb BMI 36.5 BP 134/78 Blood Pressure Location Rt brachial Position Sitting Pulse 67 Pulse Source Pulse Oximeter Pulse Oximetry (%) 99 Oxygen Delivery Method Room Air Intake Visit Reasons: 6 mon follow up/ Conf Exercise Teacher Required: No Accompanied by: Self / Same As Patient Allergies irbesartan [IRBESARTAN] Allergy (Intermediate, Verified 08/29/24 10:42) RASH latex [LATEX] Allergy (Intermediate, Verified 08/29/24 10:42) RASH NSAIDS (Non-Steroidal Anti-Inflamma [NSAIDS (NON-STEROIDAL ANTI-INFLAMMA] Allergy (Intermediate, Verified 08/29/24 10:42) STAGE 3 KIDNEY DISEASE sulfamethoxazole [From BACTRIM] Allergy (Intermediate, Verified 08/29/24 10:42) RASH trimethoprim [From BACTRIM] Allergy (Intermediate, Verified 08/29/24 10:42) RASH valsartan [From DIOVAN] Allergy (Intermediate, Verified 08/29/24 10:42) HIVE,DIFFICULTY BREATHING lisinopril [LISINOPRIL] Allergy (Unknown, Verified 08/29/24 10:42) PER MD losartan [LOSARTAN] Allergy (Unknown, Verified 08/29/24 10:42) PER MD Lnyexau-DEJ-FlK Reductase Inhibitor [FDDBTFS-ROO-XEC REDUCTASE INHIBITOR] Allergy (Unknown, Verified 08/29/24 10:42) PER MD meperidine [From Demerol] Adverse Reaction (Mild, Verified 08/29/24 10:42) VOMITING BANDAIDS Allergy (Unknown, Uncoded 05/21/23 11:10) RASH ALL NARCOTICS Adverse Reaction (Unknown, Uncoded 05/21/23 11:10) NAUSEA AND VOMITING Medication List - Last Reconciled 08/29/24 by Aguilar Gudino MD allopurinol 100 mg PO DAILY apixaban (Eliquis) 5 mg PO BID 90 days cholecalciferol (vitamin D3) 25 mcg PO DAILY clotrimazole-betamethasone 1-0.05 % appl topical coenzyme Q10 (Co Q-10) 100 mg PO DAILY diltiazem HCl CD 180 mg PO DAILY ezetimibe 10 mg PO DAILY fexofenadine (Heidi Allergy) 180 mg PO DAILY PRN furosemide (Lasix) 20 mg PO DAILY metoprolol succinate ER 50 mg PO BID miscellaneous medical supply 1 ea miscellaneous DAILY rosuvastatin (Crestor) 20 mg PO DAILY HPI Comments Details: 78-year-old woman with a history of hypertension CKD. Serum creatinine is usually around 1.3-1.4 mg/dL. She has history of atrial fibrillation which seems to be controlled. She was offered watchman and she has refused. Sometimes she feels lightheaded when she tries to stand up. There has been a bump in serum creatinine up to 1.7 by in March and be as of April creatinine is down to 1.6 which is still higher than her baseline. No urine symptoms. 08/20/23: Feels better; Still with A.Fib ;Seen by Cardiology- she is not planning to do ablation 02/29/24; Recently in [facility] for CHF. Currently doing well. 08/29/24: Overall doing well. GAined few lbs. No urinary issues PFSH Medical History Sleep apnea Essential hypertension Hemorrhage of gastrointestinal tract, unspecified Aortic calcification Duodenal ulcer PAF (paroxysmal atrial fibrillation) Surgical History History of bunionectomy History of esophagogastroduodenoscopy (EGD) H/O colonoscopy History of colectomy History of foot surgery History of parathyroidectomy History of hysterectomy Family History Father No problems noted. Mother No problems noted. Brother FH: testicular cancer Social History Alcohol intake: current Alcohol intake frequency: holidays/special occasions only Alcohol type: wine Patient Tobacco Use Status: Former Tobacco user Tobacco use type: Cigarette Cigarettes Per Day: 20 Years Smoked: 30 Physical Exam Vital Signs: Last Vital Signs Pulse 67 08/29/24 10:40 BP 134/78 08/29/24 10:40 Pulse Ox 99 08/29/24 10:40 Oxygen Delivery Method Room Air 08/29/24 10:40 BMI result Body Mass Index 36.5 Const General: comfortable; No acute distress Orientation/consciousness: patient oriented x3 Eyes General: appearance normal, both eyes and all related structures Visual Cornejo: normal visual cornejo by confrontation Neck Neck: Yes supple and Yes no JVD Resp Effort & Inspection: normal respiratory effort and respiratory effort not decreased Auscultation: no rhonchi Cardio Palpation: no palpable S3 and no palpable S4 Heart sounds: no rubs GI Inspection: Yes normal to inspection Palpation (GI): Soft to palpation Percussion: Yes normal to percussion Auscultation: normal bowel sounds General: Yes no CVA tenderness Back/Spine/Pelvis Back: no CVA tenderness Skin General skin exam: no petechiae and no purpura Neuro General: patient oriented x3 and no focal motor deficits Extrem General: No clubbing and No edema Results Reviewed Nephrology Results: Hgb 15.0 g/dl (12.0-16.0) 08/24/24 WBC 4.3 X10*3/uL (4.8-10.8) L 08/24/24 Plt Count 240 X10*3/uL (160-400) 08/24/24 Sodium 144 mmol/L (135-145) 08/24/24 Potassium 4.4 mmol/L (3.3-5.1) 08/24/24 Chloride 111 mmol/L (96-108) H 08/24/24 Carbon Dioxide 24 mmol/L (22-29) 08/24/24 BUN 31 mg/dL (9-16) H 08/24/24 Creatinine 1.19 mg/dL (0.5-1.4) 08/24/24 Calcium 9.7 mg/dL (8.4-10.2) 08/24/24 Urine Protein 300 (3+) mg/dL (Neg-Trace) H 08/24/24 Urine Creatinine 153.03 mg/dL 08/24/24 Assessment & Plan Assessment & Plan (1) Essential hypertension: Code(s): I10 - Essential (primary) hypertension Category: Medical (2) Stage III chronic kidney disease: Code(s): N18.30 - Chronic kidney disease, stage 3 unspecified Category: Surgical (3) Hyperparathyroidism: Comment: Status post parathyroidectomy Code(s): E21.3 - Hyperparathyroidism, unspecified Category: Medical (4) Microalbuminuria: Code(s): R80.9 - Proteinuria, unspecified Category: Medical Plan: Continue with RAAS inhibition with Aldactazide Plan Elderly woman with stage III CKD in the setting of hypertension with a baseline creatinine 1.4 mg/dL has sustained SHAW. Cr up to 1.7 due to hypoperfusion Now back to baseline of 1.19 BP is well controlled NO change inmeds Continue to avoid nephrotoxic agents. Stable benign renal cyst A.fib abd CHF Management per cardiology Stay on low slat diet ( avoid pretzels!) Orders: Orders Basic Metabolic Panel 6 Months N18.30 - Chronic kidney disease, stage 3 unspecified, R80.9 - Proteinuria, unspecified Complete Blood Count no Diff 6 Months N18.30 - Chronic kidney disease, stage 3 unspecified, R80.9 - Proteinuria, unspecified Coding Level of Care Code Est Pt Level 4 (15239) Diagnoses Essential hypertension I10 Stage III chronic kidney disease N18.30 Hyperparathyroidism E21.3 Microalbuminuria R80.9
--- OUTSIDE RECORDS SUMMARY | 2024-08-29 12:06 | XMS_ITS | Encounter Summary ---
Author Organization [facility] Address [address] [facility] [address] [place] [address] Phone Care Team Providers Care Substation Electrician Supervisor Name Role Phone Ángel Multani MD Primary Care Provider [phone] Encounter Details Date Type Department Care Team (Late st Contact Info) Description 06/26/2022 Telephone [facility] [address] [facility] [address] [place] [address] Aguilar Gudino MD Social History [...] 06/26/2022 11:37 AM EST Pt FYI, Her beam saw operator changed diltiazem to 120 mg ER Caps, 1 cap daily documented in this encounter Plan of Treatment Not on file documented as of this encounter Visit Diagnoses Not on filedocumented in this encounter Care Teams Substation Electrician Supervisor Relationship Specialty Start Date End Date Ángel Multani MD [address] [place] [address] PCP - General 06/25/20 documented as of this encounter
--- OUTSIDE RECORDS SUMMARY | 2024-08-29 12:06 | XMS_ITS | Clinical Summary ---
Author Organization [facility] Address [address] [facility] [place] [address] Phone Care Team Providers Care Tab Card Press Operator Name Role Phone Ángel Multani MD Primary Care Provider [phone] Allergies Active Allergy Reactions Criticality Noted Date [...] mouth 1 (one) time each day Active [place]-3 Krill Oil 1000 MG capsule Take 1 [...] patient's age to complete this topic Insurance [facility] MEDICARE [facility] MEDICARE Care Teams Tab Card Press Operator Relationship Specialty Start Date End Date Ángel Multani MD [address] [place] [address] PCP - General 06/25/20
== END 2024-08-29 10:54 | disposition home or self-care (01) ==
LOC: HO.HKA 10:39
PROVIDERS: PCP Internal Medicine; Visit Provider Internal Medicine Hypertension Specialist
DX: I10 Essential (primary) hypertension (principal); N18.30 Chronic kidney disease, stage 3 unspecified; E21.3 Hyperparathyroidism, unspecified; R80.9 Proteinuria, unspecified
CPT/HCPCS: 99214

== ENCOUNTER → 2024-08-29 10:38 | Outpatient (BNVA) | payer MEDICARE, SELFPAY | PROVIDERS: PCP Internal Medicine; Visit Provider Internal Medicine Hypertension Specialist | DX: I12.9 Hypertensive chronic kidney disease with stage 1 through stage 4 chronic kidney disease, or unspecified chronic kidney disease (principal); N18.30 Chronic kidney disease, stage 3 unspecified; E21.3 Hyperparathyroidism, unspecified; R80.9 Proteinuria, unspecified | CPT/HCPCS: 99212 ==

== ENCOUNTER 2024-09-20 11:17 | Outpatient (REF) | payer MEDICARE, SELFPAY ==
--- NOTE | ~2024-09-20 | XR_ITS ---
EXAMINATION: XR KNEE 1-2 VIEWS RIGHT HISTORY: RT KNEE PAIN, R/O DJD COMPARISON: There are no prior studies available for comparison. FINDINGS: AP and lateral views of the right knee are submitted. Osseous mineralization is normal. There is no fracture or dislocation. There is moderate narrowing of the medial compartment. There is a small joint effusion. There are vascular calcifications. XR/XR knee RT 2V IMPRESSION: Moderate narrowing of the medial compartment. Electronically signed by: Landen Walker MD 09/20/2024 02:06 PM EDT
--- OUTSIDE RECORDS SUMMARY | 2024-09-20 13:51 | XMS_ITS | Encounter Summary ---
Author Organization [facility] Address [address] [facility] [address] [place] [address] Phone Care Team Providers Care Faculty Instructor Name Role Phone Ángel Multani MD Primary Care Provider [phone] Encounter Details Date Type Department Care Team (Late st Contact Info) Description 06/26/2022 Telephone [facility] [address] [facility] [address] [place] [address] Aguilar Gudino MD Social History [...] 06/26/2022 11:37 AM EST Pt FYI, Her editor managing director changed diltiazem to 120 mg ER Caps, 1 cap daily documented in this encounter Plan of Treatment Not on file documented as of this encounter Visit Diagnoses Not on filedocumented in this encounter Care Teams Faculty Instructor Relationship Specialty Start Date End Date Ángel Multani MD [address] [place] [address] PCP - General 06/25/20 documented as of this encounter
--- OUTSIDE RECORDS SUMMARY | 2024-09-20 13:51 | XMS_ITS | Clinical Summary ---
Author Organization [facility] Address [address] [place] [address] Phone Care Team Providers Care Radiology Resident Name Role Phone Ángel Multani MD Primary Care Provider [phone] Allergies Active Allergy Reactions Criticality Noted Date [...] mouth 1 (one) time each day Active [place]-3 Krill Oil 1000 MG capsule Take 1 [...] 2 - PCV) 09/23/2014 09/23/2013 Influenza Vaccine (Season Ended) 2025 Hepatitis B Vaccine Aged Out No longe r eligible based on patient's age to complete this topic Insurance [facility] MEDICARE [facility] MEDICARE Care Teams Radiology Resident Relationship Specialty Start Date End Date Ángel Multani MD [address] [place] [address] PCP - General 06/25/20
== END 2024-09-20 11:18 | disposition home or self-care (01) ==
LOC: HO.HMGCX 11:17
PROVIDERS: PCP Internal Medicine; Visit Provider Internal Medicine
DX: M25.561 Pain in right knee (principal); R60.0 Localized edema
CPT/HCPCS: 73560

== ENCOUNTER → 2024-09-20 11:22 | Outpatient (BNV) | payer MEDICARE, SELFPAY | PROVIDERS: PCP Internal Medicine; Visit Provider Radiology Diagnostic Radiology | DX: M25.561 Pain in right knee (principal) | CPT/HCPCS: 73560 ==

== ENCOUNTER 2024-09-28 09:47 | Outpatient (REF) | payer SELFPAY ==
--- OUTSIDE RECORDS SUMMARY | 2024-09-28 11:03 | XMS_ITS | Clinical Summary ---
Author Organization [facility] Address [address] [facility] [address] [address] [place] [address] Phone Care Team Providers Care Wood Grinder Name Role Phone Ángel Multani MD Primary Care Provider [phone] Allergies Active Allergy Reactions Criticality Noted Date [...] mouth 1 (one) time each day Active [place]-3 Krill Oil 1000 MG capsule Take 1 [...] without congestive he art failure 08/17/2020 Immunizations Immunization Administration Dates Next Due Pneumococcal Polysaccharide 09/23/2013 [...] Due Date Last Done Comments Pneumococcal Vaccine: 50+ Ye ars (2 of 2 - PCV) 09/23/2014 09/23/2013 Influenza Vaccine (Season Ended) 2025 Pneumococcal Vaccine: Peds ( 0 to 5 Years) and At-Risk Patients (6 to 49 Years) Discontinued 09/23/2013 Hepatitis B Vaccine Aged Out No longe r eligible based on patient's age to complete this topic Insurance [facility] Medicare [facility] Medicare Care Teams Wood Grinder Relationship Specialty Start Date End Date Ángel Multani MD [address] [facility] [place] PCP - General 06/25/20
--- OUTSIDE RECORDS SUMMARY | 2024-09-28 11:03 | XMS_ITS | Encounter Summary ---
Author Organization [facility] Address [address] [facility] [address] [place] [address] Phone Care Team Providers Care Logging Crew Foreman Name Role Phone Ángel Multani MD Primary Care Provider [phone] Encounter Details Date Type Department Care Team (Late st Contact Info) Description 06/26/2022 Telephone [facility] [address] [facility] [address] [place] [address] Aguilar Gudino MD Social History [...] 06/26/2022 11:37 AM EST Pt FYI, Her customer sales advisor changed diltiazem to 120 mg ER Caps, 1 cap daily documented in this encounter Plan of Treatment Not on file documented as of this encounter Visit Diagnoses Not on filedocumented in this encounter Care Teams Logging Crew Foreman Relationship Specialty Start Date End Date Ángel Multani MD [address] [place] [address] PCP - General 06/25/20 documented as of this encounter
== END 2024-09-28 09:48 | disposition home or self-care (01) ==
LOC: HO.SH 09:47
PROVIDERS: Visit Provider Internal Medicine
DX: Z13.89 Encounter for screening for other disorder (principal)

== ENCOUNTER 2024-10-16 10:49 | Outpatient (REF) | payer MEDICARE, SELFPAY ==
--- NOTE | ~2024-10-16 | MR_ITS ---
EXAMINATION: MRI RIGHT KNEE WITHOUT CONTRAST HISTORY: PAIN, MODERATE NARROWING OF MEDIAL COMPARTMENT COMPARISON: Relation is made with plain films of the right knee dated 09/20/2024. TECHNIQUE: Coronal T1 and fat-suppressed proton density, sagittal proton density and fat-suppressed proton density, and axial fat suppressed T2 weighted MR images of the right knee were obtained. FINDINGS: Bone marrow: Bone marrow signal intensity is normal. Joint effusion: There is a large suprapatellar joint effusion. There is an 8 mm loose body in the lateral portion of the suprapatellar recess which may represent a cartilage or meniscal fragment. Leyva's cyst: There is no Leyva's cyst. Articular cartilage: There is moderate cartilage loss involving the medial compartment with associated subchondral marrow changes and small osteophyte formation. There is moderate thinning of the patellar cartilage. The cartilage of the lateral compartment is preserved. Muscles/soft tissues: The visualized muscles demonstrate normal signal intensity. Anterior cruciate ligament: Intact Posterior cruciate ligament: Intact Medial collateral ligament: There is extrusion of the body of the medial meniscus. The body of the meniscus is irregular in shape and demonstrates multiple foci of increased signal intensity, compatible with a degenerative tear. Lateral collateral ligament: Intact Medial meniscus: Intact Lateral meniscus: Intact Flexor mechanism: The popliteus, gastrocnemius, and hamstring tendons are intact. Quadriceps tendon: Intact Patellar tendon: Intact Patellar retinacula: Intact MR/MR knee RT wo con IMPRESSION: 1. Moderate osteoarthritis of the medial compartment. Moderate cartilage thinning involving the lateral compartment. 2. Findings consistent with a degenerative tear of the body of the meniscus. 3. Large joint effusion. 8 mm loose body in the lateral aspect of the suprapatellar recess which could represent a cartilage or meniscal fragment. Electronically signed by: Landen Walker MD 10/17/2024 08:08 AM EDT
--- OUTSIDE RECORDS SUMMARY | 2024-10-16 10:51 | XMS_ITS | Encounter Summary ---
Author Organization [facility] Address [address] [facility] [address] [place] [address] Phone Care Team Providers Care Telephone Claims Representative Name Role Phone Ángel Multani MD Primary Care Provider [phone] Encounter Details Date Type Department Care Team (Late st Contact Info) Description 06/26/2022 Telephone [facility] [address] [facility] [address] [place] [address] Aguilar Gudino MD Social History [...] 06/26/2022 11:37 AM EST Pt FYI, Her side panel hanger changed diltiazem to 120 mg ER Caps, 1 cap daily documented in this encounter Plan of Treatment Not on file documented as of this encounter Visit Diagnoses Not on filedocumented in this encounter Care Teams Telephone Claims Representative Relationship Specialty Start Date End Date Ángel Multani MD [address] [place] [address] PCP - General 06/25/20 documented as of this encounter
--- OUTSIDE RECORDS SUMMARY | 2024-10-16 10:51 | XMS_ITS | Clinical Summary ---
Author Organization [facility] Address [address] [facility] [address] [place] [address] Phone Care Team Providers Care Supervisor Ovens Name Role Phone Ángel Multani MD Primary Care Provider [phone] Allergies Active Allergy Reactions Criticality Noted Date [...] mouth 1 (one) time each day Active [place]-3 Krill Oil 1000 MG capsule Take 1 [...] patient's age to complete this topic Insurance [facility] Medicare [facility] Medicare Care Teams Supervisor Ovens Relationship Specialty Start Date End Date Ángel Multani MD [address] [facility] [place] PCP - General 06/25/20
== END 2024-10-16 10:50 | disposition home or self-care (01) ==
LOC: HO.MRI 10:49
PROVIDERS: PCP Internal Medicine; Visit Provider Internal Medicine
DX: M25.561 Pain in right knee (principal)
CPT/HCPCS: 73721

== ENCOUNTER → 2024-10-16 11:00 | Outpatient (BNV) | payer MEDICARE, SELFPAY | PROVIDERS: PCP Internal Medicine; Visit Provider Radiology Diagnostic Radiology | DX: M17.11 Unilateral primary osteoarthritis, right knee (principal); M25.461 Effusion, right knee | CPT/HCPCS: 73721 ==

== ENCOUNTER 2024-11-22 13:47 | Outpatient (AMB) | payer SELFPAY ==
[2024-11-22 13:58] VITALS: BP 124/80; PULSE 78; RESP 14; TEMP 36.6; O2SAT 94; BMI 36.8
--- NOTE | 2024-11-22 13:58 | A.OFFPC_ITS ---
Vital Signs 11/22/24 13:58 Height 5 ft 1 in Weight 195 lb BMI 36.8 BP 124/80 Respiration 14 Pulse 78 Pulse Source Pulse Oximeter Temp 97.8 F Temp Source Temporal Artery Scan Pulse Oximetry (%) 94 Oxygen Delivery Method Room Air Intake Visit Reasons: establish care Tandem Mill Operator Required: No Accompanied by: Self / Same As Patient Allergies irbesartan [IRBESARTAN] Allergy (Intermediate, Verified 11/22/24 13:59) RASH latex [LATEX] Allergy (Intermediate, Verified 11/22/24 13:59) RASH NSAIDS (Non-Steroidal Anti-Inflamma [NSAIDS (NON-STEROIDAL ANTI-INFLAMMA] Allergy (Intermediate, Verified 11/22/24 13:59) STAGE 3 KIDNEY DISEASE sulfamethoxazole [From BACTRIM] Allergy (Intermediate, Verified 11/22/24 13:59) RASH trimethoprim [From BACTRIM] Allergy (Intermediate, Verified 11/22/24 13:59) RASH valsartan [From DIOVAN] Allergy (Intermediate, Verified 11/22/24 13:59) HIVE,DIFFICULTY BREATHING lisinopril [LISINOPRIL] Allergy (Unknown, Verified 11/22/24 13:59) PER MD losartan [LOSARTAN] Allergy (Unknown, Verified 11/22/24 13:59) PER MD Pityhzl-ADU-FzT Reductase Inhibitor [[id number]-[id number] REDUCTASE INHIBITOR] Allergy (Unknown, Verified 11/22/24 13:59) PER MD meperidine [From Demerol] Adverse Reaction (Mild, Verified 11/22/24 13:59) VOMITING BANDAIDS Allergy (Unknown, Uncoded 11/22/24 13:59) RASH ALL NARCOTICS Adverse Reaction (Unknown, Uncoded 11/22/24 13:59) NAUSEA AND VOMITING Tobacco use date assessed: 11/22/24 Fall risk assessment: No Falls in past year Last assessed Fall Risk: 11/22/24 Dental Screening Dental Screen Date: 11/22/24 Did you have a dental visit in the last 12 months?: Yes Did you have a dental problem in the last 6 months where you did not have access to dental care?: No Was dental information given to patient?: Patient has dentist (patient has dentures) [facility] Medical History Sleep apnea Essential hypertension Hemorrhage of gastrointestinal tract, unspecified Aortic calcification Duodenal ulcer PAF (paroxysmal atrial fibrillation) Surgical History History of bunionectomy History of esophagogastroduodenoscopy (EGD) H/O colonoscopy (~09/01/11) History of colectomy History of foot surgery History of parathyroidectomy History of hysterectomy Family History Father No problems noted. Mother No problems noted. Brother FH: testicular cancer Social History Housing: House Alcohol intake: current Alcohol intake frequency: holidays/special occasions only Alcohol type: wine Patient Tobacco Use Status: Former Tobacco user Tobacco use type: Cigarette Cigarettes Per Day: 20 Years Smoked: 30 service: No Current occupational status: retired Cognitive needs: No Hearing needs: Yes (b/l hearing aids) Vision needs: Yes (rx glasses) Questionnaire PHQ-9 Over the last 2 weeks, how often have you been bothered by any of the following problems? 1. Little interest or pleasure in doing things: not at all 2. Feeling down, depressed, or hopeless: not at all 3. Trouble falling or staying asleep, or sleeping too much: not at all 4. Feeling tired or having little energy: not at all 5. Poor appetite or overeating: not at all 6. Feeling bad about yourself - or that you are a failure or have let yourself or your family down: not at all 7. Trouble concentrating on things, such as reading the newspaper or watching television: not at all 8. Moving or speaking so slowly that other people could have noticed. Or the opposite - being so fidgety or restless that you have been moving around a lot more than usual: not at all 9. Thoughts that you would be better off or of hurting yourself in some way: not at all Total score: 0 Source: Developed by Drs. Landen Romero, Carolee Dey, Hebert Berry and colleagues, with an educational shyla from [employer]. Thrive Questionnaire Date Thrive assessed: 11/22/24 I am a: Patient What is your living situation today?: I have a steady place to live Within the past 12 months, did the food you bought not last and you didn't have the money to get more?: Never true Within the past 12 months, did you worry whether your food would run out before you got money to buy more?: Never true Do you have trouble paying for medicines?: No Do you have trouble getting transportation to medical appointments?: No Do you have trouble paying your heating and electricity bill?: No Do you have trouble taking care of your child, family member or friend?: No Do you have trouble with day-to-day activities such as bathing, preparing meals, shopping, managing finances, etc.?: No Are you currently unemployed and looking for a job?: No Are you interested in more education?: No Please select the resources that you would like help with: None THRIVE Score: 0 AUDIT C Alcohol Use Questionnaire (AUDIT-C) 1. How often do you have a drink containing alcohol?: Monthly or less 2. How many drinks containing alcohol do you have on a typical day when you are drinking?: 1 or 2 3. How often do you have six or more drinks on one occasion?: Never Total Score: 1 MO-7 AMB Questionnaire MO-7 Date MO - 7 assessed: 11/22/24 Feeling nervous, anxious, or on edge: 0 = Not at all Not being able to stop or control worryin = Not at all Worrying too much about different things: 0 = Not at all Trouble relaxin = Not at all Being so restless that it is hard to sit still: 0 = Not at all Becoming easily annoyed or irritable: 0 = Not at all Feeling afraid as if something awful might happen: 0 = Not at all Total MO-7 score (0-4 normal; 5-9 mild; 10-14 moderate; 15-21 severe): 0 Source: Developed by Drs. Landen Romero, Carolee Dey, Hebert Berry and colleagues, with an educational shyla from [employer]. Physical exam (Primary Care) Vital Signs: Last Vital Signs Temp 97.8 F 11/22/24 13:58 Pulse 78 11/22/24 13:58 Resp 14 11/22/24 13:58 BP 124/80 11/22/24 13:58 Pulse Ox 94 11/22/24 13:58 Oxygen Delivery Method Room Air 11/22/24 13:58 BMI result Body Mass Index 36.8 Tobacco/Smoking Status: Tobacco use Status Tobacco use date assessed 11/22/24 11/22/24 14:02 Patient Tobacco Use Status Former Tobacco user 11/22/24 14:02 Tobacco use type Cigarette 11/22/24 14:02 PHQ-9: PHQ-9 Score PHQ-9: Total score 0 11/22/24 16:16 Thrive Assessment: Date of Thrive Assessment Date Thrive assessed 11/22/24 11/22/24 14:02 Coding Level of Care Code New Pt Level 4 (90100) Complex EM visit Add On G2211 Diagnoses Essential hypertension I10 Assessment & Plan Assessment & Plan (1) Essential hypertension: Code(s): I10 - Essential (primary) hypertension Category: Medical Plan: BW in range. Continue current meds Plan History of Present Illness - The patient is an 79-year-old female presenting for a wellness visit with a focus on chronic disease management. - Atrial Fibrillation is managed with Eliquis, and patient is under cardiology care. - Osteoarthritis is previously problematic but currently asymptomatic due to use of intermittent Tylenol. - Eye conditions including macular degeneration and epiretinal membrane detachment are managed, with new glasses aiding visual function. - Inguinal hernia is noted post-surgery, with no current interventions. - Chronic kidney issues are followed by a aids counselor. Social History - The patient previously worked at [email or web address] for eight years and has since retired. - She has raised seven children and reports having lost two children, with the youngest child's age not specified. - Lives independently and is responsible for caring for a dog, which contributes to daily physical activity. - Does not drive at night due to impaired night vision, indicating self-imposed restriction. Review of Systems - Cardiovascular: Reports atrial fibrillation. Denies any new cardiac symptoms. - Musculoskeletal: Reports intermittent knee and shoulder discomfort, currently asymptomatic. - Ophthalmologic: Reports macular degeneration and epiretinal membrane traction. Denies other visual disturbances. - Genitourinary: Denies urinary irregularities. - Sleep: Reports generally adequate sleep. - Respiratory: Denies breathing difficulties. Physical Exam General: Cooperative and healthy appearing Nutritional Appearance: Well nourished Orientation/consciousness: Patient oriented x3 Limitations: No limitations Head: Normal to inspection General: Appearance normal, both eyes and all related structures Neck: Normal visual inspection Chest: Normal palpation of entire chest wall Respiratory: Breathing okay. Deep breath in and out. ormal respiratory effort Neurology: Patient oriented x3. Lacks a little energy. Trouble seeing at night. Wears hearing aids. Results Plan 1. Atrial Fibrillation - Maintain Eliquis regimen. - Scheduled cardiology evaluations. 2. Osteoarthritis Of Knee And Shoulder - Siniso for symptom control. - Observation of symptom changes. 3. Macular Degeneration And Epiretinal Membrane - Ophthalmology follow-up. - Utilize new glasses. 4. Inguinal Hernia - Monitor for complications. - Possible surgery if symptoms develop. 5. Chronic Kidney Disease - Ongoing nephrology check-ups. - Kidney function surveillance. Discussion Notes I discussed the chronic management of the patient's atrial fibrillation and the necessity to continue anticoagulation therapy with Eliquis. We talked about osteoarthritis in her knee and shoulder, which has improved with Siniso; thus, I advised continuing this regimen. Her eye conditions, macular degeneration, and epiretinal membrane, remain stable, with consistent follow-up in place. I mentioned monitoring her inguinal hernia for any complications and considering surgical intervention only if significant symptoms arise. I ensured that the patient understood the importance of nephrology follow-up for her chronic kidney disease, emphasizing regular monitoring of renal function. I agreed to see her in three months for further assessment and blood work, with an understanding that if any issues arise, she can contact me for an earlier appointment. Patient Instructions - Continue taking Eliquis as prescribed. - Keep using Siniso for joint health and report any changes in knee or shoulder discomfort. - Attend regular eye exams and wear prescribed glasses. - Observe hernia for new symptoms; notify the doctor if any concerns arise. - Follow up with the kidney doctor as scheduled, and for blood work, visit the l ab when advised. - Seek medical attention sooner if experiencing significant changes in health. - Return in three months or earlier if needed. Orders: Orders Basic Metabolic Panel 11/22/24 I10 - Essential (primary) hypertension Thyroid Stimulating Hormone 11/22/24 I10 - Essential (primary) hypertension UA and rflx microscopic 11/22/24 I10 - Essential (primary) hypertension Complete Blood Count no Diff 11/22/24 I10 - Essential (primary) hypertension Lipid Panel 11/22/24 I10 - Essential (primary) hypertension Liver Panel 11/22/24 I10 - Essential (primary) hypertension
--- OUTSIDE RECORDS SUMMARY | 2024-11-22 16:21 | XMS_ITS | Encounter Summary ---
Author Organization [facility] Address [address] [facility] [address] [place] [address] Phone Care Team Providers Care Keyboard Teacher Name Role Phone Ángel Multani MD Primary Care Provider [phone] Encounter Details Date Type Department Care Team (Late st Contact Info) Description 06/26/2022 Telephone [facility] [address] [facility] [address] [facility] [address] [place] [address] Aguilar Gudino MD Social History [...] 06/26/2022 11:37 AM EST Pt FYI, Her merchandising intern changed diltiazem to 120 mg ER Caps, 1 cap daily documented in this encounter Plan of Treatment Not on file documented as of this encounter Visit Diagnoses Not on filedocumented in this encounter Care Teams Keyboard Teacher Relationship Specialty Start Date End Date Ángel Multani MD [address] [place] [address] PCP - General 06/25/20 documented as of this encounter
== END 2024-11-22 14:30 | disposition home or self-care (01) ==
LOC: HO.HMCSH 13:47
PROVIDERS: PCP Internal Medicine; Visit Provider Internal Medicine
DX: I10 Essential (primary) hypertension (principal)

== ENCOUNTER → 2024-11-22 13:47 | Outpatient (BNVA) | payer MEDICARE, SELFPAY | PROVIDERS: PCP Internal Medicine; Visit Provider Internal Medicine | DX: I10 Essential (primary) hypertension (principal) | CPT/HCPCS: 99202 ==

== ENCOUNTER 2024-11-24 10:26 | Outpatient (REF) | payer MEDICARE, SELFPAY ==
--- NOTE | 2024-11-24 11:24 | MHC.AU.HA3 ---
Hearing Instrument Follow-Up- Binaural Date of Visit: 11/24/24 Right Ear: Michael, Model, Color, Serial Number: [id number] [employer] Warranty: 12/30/2024 [employer] Loss and Damage Warranty: 12/30/2024 [facility] Service Plan: 12/30/2024 Battery Size: 13 Rn Camp/Slim Tube: Size 2 CROS wire Earmold/Dome/CShell/SlimTip: sm open Type of Wax Guard: Cerushield Dispensed By: [facility] Date of Fittin10/30/2021 Left Ear: Michael, Model, Color, Serial Number: [id number] [employer] Warranty: 12/30/2024 [employer] Loss and Damage Warranty: 12/30/2024 [facility] Service Plan: 12/30/2024 Battery Size: 13 Rn Camp/Slim Tube: Size 2 M Earmold/Dome/CShell/SlimTip: med vented Type of Wax Guard: Cerushield Dispensed By: [facility] Date of Fittin10/30/2021 Follow-Up Summary: Rosenda is here to have her hearing aids checked before the end of her warranty/ service plan. No concerns at this time. Cleaned hearing aid and cros, cleaned out microphone ports, ran through dehumidifier. Replaced wax guards and domes. Listening check positive. Checked for firmware update, hearing aids already UTD. Reminded services/ repairs will incur charges as of 12/30/2024. Recommendations: Recommendations: Hearing instrument follow-up or maintenance as needed. Diagnosis Code(s): Primary Diagnosis: H90.3 Bilateral Sensorineural Hearing Loss Signature: Provider: Venancio Choi, [facility]
--- OUTSIDE RECORDS SUMMARY | 2024-11-24 12:08 | XMS_ITS | Encounter Summary ---
Author Organization [facility] Address [address] [facility] [address] [place] [address] Phone Care Team Providers Care Research Environmental Engineer Name Role Phone Ángel Multani MD Primary Care Provider [phone] Encounter Details Date Type Department Care Team (Late st Contact Info) Description 06/26/2022 Telephone [facility] [address] [facility] [address] [place] [address] Aguilar Gudino MD Social History [...] 06/26/2022 11:37 AM EST Pt FYI, Her hired help changed diltiazem to 120 mg ER Caps, 1 cap daily documented in this encounter Plan of Treatment Not on file documented as of this encounter Visit Diagnoses Not on filedocumented in this encounter Care Teams Research Environmental Engineer Relationship Specialty Start Date End Date Ángel Multani MD [address] [place] [address] PCP - General 06/25/20 documented as of this encounter
== END 2024-11-24 10:27 | disposition home or self-care (01) ==
LOC: HO.HAP 10:26
PROVIDERS: Visit Provider Internal Medicine
DX: Z13.89 Encounter for screening for other disorder (principal)

== ENCOUNTER 2024-12-12 10:39 | Outpatient (AMB) | payer MEDICARE, SELFPAY ==
--- NOTE | 2024-12-12 10:46 | A.OFFVIS_ITS ---
Vital Signs 12/12/24 10:47 Height 5 ft 1 in Weight 189 lb 9.561 oz BMI 35.8 BP 130/70 Blood Pressure Location Lt brachial Position Sitting Pulse 110 H Pulse Source Auscultation Intake Visit Reasons: 6 mth f/up Allergies irbesartan (IRBESARTAN) Allergy (Intermediate, Verified 11/22/24 13:59) RASH latex (LATEX) Allergy (Intermediate, Verified 11/22/24 13:59) RASH NSAIDS (Non-Steroidal Anti-Inflamma (NSAIDS (NON-STEROIDAL ANTI-INFLAMMA) Al lergy (Intermediate, Verified 11/22/24 13:59) STAGE 3 KIDNEY DISEASE sulfamethoxazole (From BACTRIM) Allergy (Intermediate, Verified 11/22/24 13:59) RASH trimethoprim (From BACTRIM) Allergy (Intermediate, Verified 11/22/24 13:59) RASH valsartan (From DIOVAN) Allergy (Intermediate, Verified 11/22/24 13:59) HIVE,DIFFICULTY BREATHING lisinopril (LISINOPRIL) Allergy (Unknown, Verified 11/22/24 13:59) PER MD losartan (LOSARTAN) Allergy (Unknown, Verified 11/22/24 13:59) PER MD [id number]-[id number]-VsY Reductase Inhibitor (FTEEJUX-OMI-PNS REDUCTASE INHIBITOR) Allergy (Unknown, Verified 11/22/24 13:59) PER MD meperidine (From Demerol) Adverse Reaction (Mild, Verified 11/22/24 13:59) VOMITING BANDAIDS Allergy (Unknown, Uncoded 11/22/24 13:59) RASH ALL NARCOTICS Adverse Reaction (Unknown, Uncoded 11/22/24 13:59) NAUSEA AND VOMITING Medication List - Last Reconciled 12/12/24 by Melquiades Younger MD allopurinol 100 mg PO DAILY apixaban (Eliquis) 5 mg PO BID 90 days cholecalciferol (vitamin D3) 25 mcg PO DAILY clotrimazole-betamethasone 1-0.05 % appl topical coenzyme Q10 (Co Q-10) 100 mg PO DAILY diltiazem HCl CD 180 mg PO DAILY ezetimibe 10 mg PO DAILY fexofenadine (Heidi Allergy) 180 mg PO DAILY PRN furosemide 20 mg PO DAILY metoprolol succinate ER 50 mg PO BID miscellaneous medical supply 1 ea miscellaneous DAILY rosuvastatin (Crestor) 20 mg PO DAILY HPI Comments Details: Rosenda returns for follow-up regarding atrial fibrillation is congestive heart failure. She is maintained on rate control with diltiazem/metoprolol. Has taken verapamil in the past but apparently there was a cost issue. She has also seen EP but decided against ablation. Previous history of GI bleeding/duodenal ulcers but no active issues at this time. Otherwise, since last seen no new concerns. For the most part she is doing fine. No clear-cut angina or shortness of breath. Stable on the current regimen. [facility] Medical History Sleep apnea Essential hypertension Hemorrhage of gastrointestinal tract, unspecified Aortic calcification Duodenal ulcer PAF (paroxysmal atrial fibrillation) Surgical History History of bunionectomy History of esophagogastroduodenoscopy (EGD) H/O colonoscopy (~09/01/11) History of colectomy History of foot surgery History of parathyroidectomy History of hysterectomy Family History Father No problems noted. Mother No problems noted. Brother FH: testicular cancer Social History Housing: House Alcohol intake: current Alcohol intake frequency: holidays/special occasions only Alcohol type: wine Patient Tobacco Use Status: Former Tobacco user Tobacco use type: Cigarette Cigarettes Per Day: 20 Years Smoked: 30 service: No Current occupational status: retired Cognitive needs: No Hearing needs: Yes (b/l hearing aids) Vision needs: Yes (rx glasses) Review of Systems Const Denies weakness ENT Denies dizziness Card Denies chest pain, Denies chest pain with activity, Denies syncope, Denies rapid heart rate, Denies pedal edema, Denies edema, Denies leg edema, Denies lightheadedness, Denies palpitations, Denies dyspnea, Denies dyspnea on exertion and Denies orthopnea Resp Denies cough, Denies dyspnea and Denies dyspnea on exertion GI Denies hematochezia and Denies change in stool character Musc Denies abnormal gait, Denies muscle cramps, Denies muscle weakness, Denies numbness, Denies radiating pain into limb and Denies tingling Neuro Denies abnormal gait, Denies dizziness, Denies syncope, Denies numbness, Denies tingling and Denies weakness Endo Denies palpitations Physical Exam Vital Signs: Last Vital Signs Pulse 110 H 12/12/24 10:47 BP 130/70 12/12/24 10:47 BMI result Body Mass Index 35.8 Const General: comfortable and no acute distress Orientation/consciousness: patient oriented x3 HEENT Other: Unremarkable Head: Yes normal to inspection Neck Neck: Yes normal visual inspection Chest Chest palpation & inspection: normal inspection of the chest Resp Auscultation: clear to auscultation bilaterally Cardio Palpation: normal PMI Heart sounds: S1 normal heart sound present, S2 normal heart sound present, no gallops, no murmurs and no rubs GI Palpation (GI): Soft to palpation Back/Spine/Pelvis Other: unremarkable Skin General skin exam: no rashes or lesions noted Neuro General: patient oriented x3 Extrem General: Yes normal to inspection Psych Mental Status: mental status grossly normal Office Procedures EKG Details: EKG with atrial fibrillation at a rate of 84/Min; low-voltage QRS complexes. [id number], Complete Assessment & Plan Assessment & Plan (1) Chronic heart failure with preserved ejection fraction: Code(s): I50.32 - Chronic diastolic (congestive) heart failure Category: Medical Plan: Stable on diuretics. In the last echocardiogram, LVEF is 55-60%. Moderate left ventricle hypertrophy. Moderate left atrial dilatation. Perfusion imaging without any significant findings. (2) Persistent atrial fibrillation: Code(s): I48.19 - Other persistent atrial fibrillation Category: Medical Plan: Continue Metoprolol and Diltiazem. Previously had taken Verapamil, but there was a cost issue. Tried Multaq but lot of side effects. Then went to EP for ablation consideration but decided against it. Continue Eliquis. There is a history of GI bleeding but nothing recently. 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 Status post blood transfusions. Endoscopy had then revealed duodenal ulcers. No recent issues. (4) Aortic calcification: Code(s): I70.0 - Atherosclerosis of aorta Category: Medical Plan: Clinically, no angina. A prior abdominal CT shows extensive aortoiliac calcification. Continue statins. Lipids may be followed through her own PCP. (5) Essential hypertension: Code(s): I10 - Essential (primary) hypertension Category: Medical Plan: Stable. No changes. Plan Discussion Notes I discussed with the patient the importance of continuing her current medications for hypertension and atrial fibrillation. We reviewed the management of her edema, including the use of diuretics. We agreed on a follow-up schedule of every six months to monitor her condition. Patient was informed and verbally consented to the use of an ambient scribe for clinic note documentation during this visit. Patient Instructions: - Continue taking metoprolol, diltiazem, and Eliquis as prescribed. - Report any new or worsening symptoms to the healthcare provider. - Follow up in six months for routine monitoring. Coding Level of Care Code Est Pt Level 4 (98172) Complex EM visit Add On G2211 Diagnoses Chronic heart failure with preserved ejection fraction I50.32 Persistent atrial fibrillation I48.19 Gastrointestinal hemorrhage associated with duodenal ulcer K26.4 GI bleed type/associated pathology: duodenal ulcer Aortic calcification I70.0 Essential hypertension I10 CPT Codes EKG - CPT: 53399-[id number], Complete ([id number])
[2024-12-12 10:47] VITALS: BP 130/70; PULSE 110; BMI 35.8
--- OUTSIDE RECORDS SUMMARY | 2024-12-12 11:23 | XMS_ITS | Patient Health Record ---
Author Organization [facility] Address [address] [place] [address] Care Team Providers Care Pharmacology Associate Name Role Phone Ángel Multani MD Primary Care Provider Landen Love [phone] Allergies Allergen (clinical drug ingredient) Drug/Non Drug Allergy documented on EMR Reaction Allergy Type Onset Date Status piroxicam Piroxicam Unknown Drug Allergy Active valsartan Diovan Unknown Drug Allergy Active Most pain Medication s (uncoded) Unknown Allergy Active Reason For Referral No Information Medications Medication SIG (Take, Route, Fr equency, Duration) Notes Start Date End Date Status Losartan Potassium A ctive Acidophilus Probiotic Active Similase Active Zetia Active Crestor Active MoviPrep 100 GM as directed Orally o nce for 1 dose 07/04/2011 Active CoQ-10 Active Multi Vitamin/Minerals Active Verapamil HCl Active Problems Problem Type SNOMED Code ICD Code Onset Dates Problem Status W/U Status Risk Notes Problem Diverticulosis of colon (finding) (843926508) Diverticulosis of colon (without mention of hemorrhage) (562.10) Active confirmed Problem Screening for malignant neoplasm of colon (422155392) Special screening for malignant neoplasms, colon (V76.51) Active confirmed Plan Of Treatment Future Test Test Name Order Date COLONOSCOPY 07/04/2011 Insurance Providers Payer Name Payer Address Payer Phone Subscriber Number Group Number Insured Name Patient Relationship to Insured Coverage Start Date Coverage End Date MEDICARE [place] [address] [place] [address] [id number] KARAN ALBERTO Self - patient is the insured MEDEX ATTN CLAIMS [address] [place] [address] [id number] KARAN ALBERTO Self - patient is the insured Medical (General) History Medical History History ICD Code hypertension hyperlipidemia denies [place], diabetes, stroke, and lung di sease diverticulosis she describes some component of renal di sease Surgical History Surgery Date(Month/Year) appendectomy with the 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
== END 2024-12-12 11:10 | disposition home or self-care (01) ==
LOC: HO.HCS 10:40
PROVIDERS: PCP Internal Medicine; Visit Provider Internal Medicine
DX: I50.32 Chronic diastolic (congestive) heart failure (principal); I48.19 Other persistent atrial fibrillation; K26.4 Chronic or unspecified duodenal ulcer with hemorrhage; I70.0 Atherosclerosis of aorta; I10 Essential (primary) hypertension
CPT/HCPCS: 93010; 99214; G2211

== ENCOUNTER → 2024-12-12 10:39 | Outpatient (BNVA) | payer MEDICARE, SELFPAY | PROVIDERS: PCP Internal Medicine; Visit Provider Internal Medicine | DX: I11.0 Hypertensive heart disease with heart failure (principal); I50.23 Acute on chronic systolic (congestive) heart failure; I48.19 Other persistent atrial fibrillation; K26.4 Chronic or unspecified duodenal ulcer with hemorrhage; I70.0 Atherosclerosis of aorta; R94.31 Abnormal electrocardiogram [ECG] [EKG]; Z79.899 Other long term (current) drug therapy; Z79.01 Long term (current) use of anticoagulants | CPT/HCPCS: 93005; 99212 ==

== ENCOUNTER 2025-02-21 13:20 | Outpatient (AMB) | payer MEDICARE, SELFPAY ==
--- NOTE | 2025-02-21 13:27 | A.OFFPC_ITS ---
Vital Signs 02/21/25 13:28 Height 5 ft 1 in Weight 192 lb BMI 36.3 BP 118/61 Blood Pressure Location Rt brachial Position Sitting Respiration 14 Pulse 80 Pulse Source Pulse Oximeter Temp 98.3 F Temp Source Temporal Artery Scan Pulse Oximetry (%) 94 Oxygen Delivery Method Room Air Intake Visit Reasons: 3 month f/u Vp Patient Required: No Accompanied by: Self / Same As Patient Allergies irbesartan (IRBESARTAN) Allergy (Intermediate, Verified 02/21/25 13:29) RASH latex (LATEX) Allergy (Intermediate, Verified 02/21/25 13:29) RASH NSAIDS (Non-Steroidal Anti-Inflamma (NSAIDS (NON-STEROIDAL ANTI-INFLAMMA) Allergy (Intermediate, Verified 02/21/25 13:29) STAGE 3 KIDNEY DISEASE sulfamethoxazole (From BACTRIM) Allergy (Intermediate, Verified 02/21/25 13:29) RASH trimethoprim (From BACTRIM) Allergy (Intermediate, Verified 02/21/25 13:29) RASH valsartan (From DIOVAN) Allergy (Intermediate, Verified 02/21/25 13:29) HIVE,DIFFICULTY BREATHING lisinopril (LISINOPRIL) Allergy (Unknown, Verified 02/21/25 13:29) PER MD losartan (LOSARTAN) Allergy (Unknown, Verified 02/21/25 13:29) PER MD Fkzktpb-CML-YtJ Reductase Inhibitor (LNGYMDE-LXA-VTM REDUCTASE INHIBITOR) Allergy (Unknown, Verified 02/21/25 13:29) PER MD meperidine (From Demerol) Adverse Reaction (Mild, Verified 02/21/25 13:29) VOMITING BANDAIDS Allergy (Unknown, Uncoded 02/21/25 13:29) RASH ALL NARCOTICS Adverse Reaction (Unknown, Uncoded 02/21/25 13:29) NAUSEA AND VOMITING Tobacco use date assessed: 02/21/25 Dental Screening Dental Screen Date: 11/22/24 [facility] Medical History Sleep apnea Essential hypertension Hemorrhage of gastrointestinal tract, unspecified Aortic calcification Duodenal ulcer PAF (paroxysmal atrial fibrillation) Surgical History History of bunionectomy History of esophagogastroduodenoscopy (EGD) H/O colonoscopy (~09/01/11) History of colectomy History of foot surgery History of parathyroidectomy History of hysterectomy Family History Father No problems noted. Mother No problems noted. Brother FH: testicular cancer Social History Housing: House Alcohol intake: current Alcohol intake frequency: holidays/special occasions only Alcohol type: wine Patient Tobacco Use Status: Former Tobacco user Tobacco use type: Cigarette Cigarettes Per Day: 20 Years Smoked: 30 Packs per year/per ci.00 service: No Current occupational status: retired Cognitive needs: No Hearing needs: Yes (b/l hearing aids) Vision needs: Yes (rx glasses) Questionnaire PHQ-9 Over the last 2 weeks, how often have you been bothered by any of the following problems? 1. Little interest or pleasure in doing things: not at all 2. Feeling down, depressed, or hopeless: not at all 3. Trouble falling or staying asleep, or sleeping too much: not at all 4. Feeling tired or having little energy: not at all 5. Poor appetite or overeating: not at all 6. Feeling bad about yourself - or that you are a failure or have let yourself or your family down: not at all 7. Trouble concentrating on things, such as reading the newspaper or watching television: not at all 8. Moving or speaking so slowly that other people could have noticed. Or the opposite - being so fidgety or restless that you have been moving around a lot more than usual: not at all 9. Thoughts that you would be better off or of hurting yourself in some way: not at all Total score: 0 Source: Developed by Drs. Landen Romero, Carolee Dey, Hebert Berry and colleagues, with an educational shyla from [employer]. Thrive Questionnaire Date Thrive assessed: 11/22/24 I am a: Patient What is your living situation today?: I have a steady place to live Within the past 12 months, did the food you bought not last and you didn't have the money to get more?: Never true Within the past 12 months, did you worry whether your food would run out before you got money to buy more?: Never true Do you have trouble paying for medicines?: No Do you have trouble getting transportation to medical appointments?: No Do you have trouble paying your heating and electricity bill?: No Do you have trouble taking care of your child, family member or friend?: No Do you have trouble with day-to-day activities such as bathing, preparing meals, shopping, managing finances, etc.?: No Are you currently unemployed and looking for a job?: No Are you interested in more education?: No Please select the resources that you would like help with: None THRIVE Score: 0 AUDIT C Alcohol Use Questionnaire (AUDIT-C) 1. How often do you have a drink containing alcohol?: Monthly or less 2. How many drinks containing alcohol do you have on a typical day when you are drinking?: 1 or 2 3. How often do you have six or more drinks on one occasion?: Never Total Score: 1 MO-7 AMB Questionnaire MO-7 Date MO - 7 assessed: 11/22/24 Feeling nervous, anxious, or on edge: 0 = Not at all Not being able to stop or control worryin = Not at all Worrying too much about different things: 0 = Not at all Trouble relaxin = Not at all Being so restless that it is hard to sit still: 0 = Not at all Becoming easily annoyed or irritable: 0 = Not at all Feeling afraid as if something awful might happen: 0 = Not at all Total MO-7 score (0-4 normal; 5-9 mild; 10-14 moderate; 15-21 severe): 0 Source: Developed by Drs. Landen Romero, Carolee Dey, Hebert Berry and colleagues, with an educational shyla from [employer]. Physical exam (Primary Care) Vital Signs: Last Vital Signs Temp 98.3 F 02/21/25 13:28 Pulse 80 02/21/25 13:28 Resp 14 02/21/25 13:28 BP 118/61 02/21/25 13:28 Pulse Ox 94 02/21/25 13:28 Oxygen Delivery Method Room Air 02/21/25 13:28 BMI result Body Mass Index 36.3 Tobacco/Smoking Status: Tobacco use Status Tobacco use date assessed 02/21/25 02/21/25 13:30 Patient Tobacco Use Status Former Tobacco user 02/21/25 13:28 Tobacco use type Cigarette 02/21/25 13:28 PHQ-9: PHQ-9 Score PHQ-9: Total score 0 02/21/25 13:30 Thrive Assessment: Date of Thrive Assessment Date Thrive assessed 11/22/24 02/21/25 13:28 Coding Level of Care Code Est Pt Level 4 (15708) Complex EM visit Add On G2211 Diagnoses Essential hypertension I10 Assessment & Plan Assessment & Plan (1) Essential hypertension: Code(s): I10 - Essential (primary) hypertension Category: Medical Plan: History of Present Illness - The patient is an 79-year-old female presenting with a routine follow-up for chronic conditions management. - Atrial fibrillation: Managed with Eliquis, with regular cardiology follow-ups. - Osteoarthritis: Avoids Tylenol, uses Senocel effectively for joint pain. - Macular degeneration: New glasses obtained, some vision issues persist. - Chronic kidney disease: Nephrology follow-up in two weeks, blood work pending. - Gout: Managed with daily allopurinol. - Hyperlipidemia: Managed with rosuvastatin and ezetimibe. Social History - Living situation: The patient lives alone and manages her own grocery shopping and driving. Review of Systems - Cardiovascular: Denies chest pain or palpitations. - Musculoskeletal: Reports effective management of joint pain with Senocel. - Ophthalmologic: Reports some vision difficulties despite new glasses. - Renal: No acute symptoms reported, nephrology follow-up planned. Physical Exam General: Cooperative and healthy appearing Nutritional Appearance: Well nourished Orientation/consciousness: Patient oriented x3 Limitations: No limitations Head: Normal to inspection General: Appearance normal, both eyes and all related structures Neck: Normal visual inspection Chest: Normal palpation of entire chest wall Respiratory: Deep breath in and out, no pain reported. ormal respiratory effort Neurology: Patient oriented x3 Results Plan 1. Atrial Fibrillation - Continue Eliquis as prescribed and maintain regular cardiology follow-ups. 2. Osteoarthritis - Continue using Senocel for joint pain management. 3. Macular Degeneration - Continue using new glasses and monitor vision changes. 4. Chronic Kidney Disease - Follow up with high school agriculture teacher in two weeks and complete pending blood work. 5. Gout - Continue allopurinol daily for gout management. 6. Hyperlipidemia - Continue rosuvastatin and ezetimibe for cholesterol management. Discussion Notes During the visit, we discussed the management of atrial fibrillation with Nando and the importance of regular cardiology follow-ups. We also reviewed the use of Senocel for osteoarthritis and the need for continued monitoring of macular degeneration with new glasses. The patient is advised to follow up with the high school agriculture teacher for chronic kidney disease management and complete the necessary blood work. Gout management with allopurinol and hyperlipidemia management with rosuvastatin and ezetimibe were also reinforced. Patient Instructions - Continue taking all prescribed medications as directed. - Follow up with your high school agriculture teacher in two weeks and complete blood work as scheduled. - Monitor any changes in vision and report them during your next eye appointment. - Maintain regular cardiology appointments for atrial fibrillation management.
[2025-02-21 13:28] VITALS: BP 118/61; PULSE 80; RESP 14; TEMP 36.8; O2SAT 94; BMI 36.3
--- OUTSIDE RECORDS SUMMARY | 2025-02-21 15:45 | XMS_ITS | Clinical Summary ---
Author Organization [facility] Address [address] [place] [address] Phone Care Team Providers Care Straightedge Man Name Role Phone Ángel Multani MD Primary Care Provider [phone] Allergies Active Allergy Reactions Criticality Noted Date [...] mouth 1 (one) time each day Active [place]-3 Krill Oil 1000 MG capsule Take 1 [...] - PCV) 09/23/2014 09/23/2013 Influenza Vaccine (#1) 2025 Pneumococcal Vaccine: Peds ( 0 to 5 Years) and At-Risk Patients (6 to 49 Years) Discontinued 09/23/2013 Hepatitis B Vaccine Aged Out No longe r eligible based on patient's age to complete this topic Insurance [facility] Medicare [facility] Medicare Care Teams Straightedge Man Relationship Specialty Start Date End Date Ángel Multani MD [address] [facility] [place] PCP - General 06/25/20
--- OUTSIDE RECORDS SUMMARY | 2025-02-21 15:45 | XMS_ITS | Patient Health Record ---
Author Organization [facility] [place] Address [address] [place] [address] Care Team Providers Care Candy Waffle Assembler Name Role Phone Ángel Multani MD Primary Care Provider Tyshawn Badillo Unavailable [phone] Allergies Allergen (clinical drug ingredient) Drug/Non Drug Allergy documented on EMR Reaction Allergy Type Onset Date Status meperidine Demerol Unknown Drug Allergy Active piroxicam Piroxicam Unknown Drug Allergy Active codeine codeine Unknown Drug Allergy Active morphine Morphine Unknown Drug Allergy Active latex Unknown Drug Allergy Active Adhesive Tape Unknown Drug Allergy Act maru Reason For Referral No Information Medications Medication SIG (Take, Route, Frequency, Duration) Notes Start Date End Date Status Verapamil HCl ER 200 MG 1 capsule at bed time Orally Once a day Active Heidi Allergy 180 MG Orally Active Crestor 10 MG 1 tablet Orally Once a day Active [place] 3 Active Probiotic Active Spironolactone-HCTZ 25-25 MG Orally Once a day Active CoQ10 100 MG Orally Active Womens One Daily Orally Act maru Aldactazide 25-25 MG 1 tablet Orally Onc e a day Active Acidophilus Probiotic 100 MG Orally Active Clotrimazole-Betamethasone Active Similase Active Nasacort Allergy 24HR Active Zetia 10 MG 1 tablet Orally Once a day Active Triamcinolone Acetonide Active Social History Alcohol Screen Question Answer Notes Did you have a drink containing alcohol in the p ast year? Yes Points 0 Interpretation Negative Tobacco use other than smoking: Question Answer Notes Are you an other tobacco user? No Problems Problem Type SNOMED Code ICD Code Onset Dates Problem Status W/U Status Risk Notes Problem Pain in left foot (981103826178405) Pain in left foot (M79.672) Active confirmed Problem Localized, primary osteoarthritis of the ankle and/or foot (639733563) Primary osteoarthrit is, right ankle and foot (M19.071) Active confirmed Problem Localized, primary osteoarthritis of the ankle and/or foot (491389282) Primary osteoarthrit is, left ankle and foot (M19.072) Active confirmed Problem Acquired hammer toe of left foot (5405012759929013) Other hammer toe(s) (acquired), left foot (M20.42) Active confirmed Plan Of Treatment Pending Test Test Name Order Date X ray : Ankle, left 3V 09/14/2017 X ray : Foot, left 3V 05/14/2016 [id number] NAIL, -01/19/2017 89472-TUXCUCE NAIL, -05/18/2017 99194-Tqth Destruction, -05/18/2017 81104-Xfko Destruction, -01/19/2017 76087-Jmgm Destruction, -12/14/2017 29319-Qzvg Destruction, -03/15/2018 65352-Axfk Destruction, -09/14/2017 78398-Untcfuwb Plate 02/11/2016 29367- Debride <25 sq cm 02/27/2016 75570- Debride <25 sq cm 05/14/2016 76186- Debride <25 sq cm 05/22/2017 48451- Debride <25 sq cm 05/24/2015 69235, Z4330-JVZDY/INJECT, JOINT/BURSA 1 07/19/2016 Insurance Providers Payer Name Payer Address Payer Phone Subscriber Number Group Number Insured Name Patient Relationship to Insured Coverage Start Date Coverage End Date Medicare National [employer]t [employer] [address] [facility] [place] [address] [id number] Rosenda Butler Self - patient is the insured 8 Medex Blue [facility] [address] [place] [address] [id number] Rosenda Butler Self - patient is the insured Medical (General) History Medical History History ICD Code Arthritis Back,Hip,and Knee pain Cholesterol Cancer Cataracts Diverticulitis High blood pressure Kidney disease Lyme disease Psoriasis/eczema Measles Mumps Chicken pox Joint implants/screws Transfusions Surgical History Surgery Date(Month/Year) Ectopic Pregnacy- Burst 03/03/1969 Total 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
--- OUTSIDE RECORDS SUMMARY | 2025-02-21 15:45 | XMS_ITS | Patient Health Record ---
Author Organization [facility] Address [address] [place] [address] Care Team Providers Care Per Diem Nurse Name Role Phone Nerissa (RETIRED) Ángel IQBAL Primary Care Provider Unavailable Landen Gomez Unavailable [phone] Allergies Allergen (clinical drug ingredient) Drug/Non Drug [...] Risk Notes Problem Diverticulosis of colon (finding) (853796283) Diverticulosis of colon (without mention of hemorrhage) (562.10) Active confirmed Problem Screening for malignant neoplasm of colon (947661566) Special screening for malignant neoplasms, colon (V76.51) Active confirmed Plan Of Treatment Future Test Test Name Order Date COLONOSCOPY 07/04/2011 Insurance Providers Payer Name Payer Address Payer Phone Subscriber Number Group Number Insured Name Patient Relationship to Insured Coverage Start Date Coverage End Date MEDICARE [place] [address] [place] [address] [id number] KARAN ALBERTO Self - patient is the insured MEDEX ATTN CLAIMS [address] [place] [address] [id number] KARAN ALBERTO Self - patient is the insured Medical (General) History Medical History History ICD Code hypertension hyperlipidemia denies [place], diabetes, stroke, and lung di sease diverticulosis she describes some component of renal di sease Surgical History Surgery Date(Month/Year) appendectomy with the 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
--- OUTSIDE RECORDS SUMMARY | 2025-02-21 15:45 | XMS_ITS | Encounter Summary ---
Author Organization [facility] Address [address] [facility] [[email or web address] [address] [place] [address] Phone Care Team Providers Care Bedspread Inspector Name Role Phone Ángel Multani MD Primary Care Provider [phone] Encounter Details Date Type Department Care Team (Late st Contact Info) Description 06/26/2022 Telephone [facility] [address] [facility] [[email or web address] [address] [place] [address] Aguilar Gudino MD Social History [...] 06/26/2022 11:37 AM EST Pt FYI, Her meat packer changed diltiazem to 120 mg ER Caps, 1 cap daily documented in this encounter Plan of Treatment Not on file documented as of this encounter Visit Diagnoses Not on filedocumented in this encounter Care Teams Bedspread Inspector Relationship Specialty Start Date End Date Ángel Multani MD [address] [place] [address] PCP - General 06/25/20 documented as of this encounter
== END 2025-02-21 13:58 | disposition home or self-care (01) ==
LOC: HO.HMCSH 13:20
PROVIDERS: PCP Internal Medicine; Visit Provider Internal Medicine
DX: I10 Essential (primary) hypertension (principal)

== ENCOUNTER → 2025-02-21 13:20 | Outpatient (BNVA) | payer MEDICARE, SELFPAY | PROVIDERS: PCP Internal Medicine; Visit Provider Internal Medicine | DX: I10 Essential (primary) hypertension (principal) | CPT/HCPCS: 99212 ==

== ENCOUNTER 2025-02-28 10:43 | Outpatient (REF) | payer MEDICARE, SELFPAY ==
[2025-02-28 13:21] LABS: Appearance Urine Clear; Glucose Urine UA Negative (Negative); PH 6.5 (5.0-9.0); Specific Gravity - Urine <= 1.005 (1.005-1.025)
[2025-02-28 14:09] LABS: Hematocrit 49.0 % (37.0-47.0); Hemoglobin 15.2 g/dl (12.0-16.0); Mean Corpuscular HGB Conc 31.0 g/dl (31.0-35.0); Mean Corpuscular Hemoglobin 26.8 pg (27.0-33.0); Mean Corpuscular Volume 86.3 fL (80.0-98.0); NRBC Abs Auto 0.000 X10*3/uL (0.0-0.012); NRBC Pct Auto 0.0 /100WBC (0.0-0.2); Platelet Count 230 X10*3/uL (160-400); Red Blood Count 5.68 X10*6/uL (4.20-5.50); White Blood Count 4.5 X10*3/uL (4.8-10.8)
--- OUTSIDE RECORDS SUMMARY | 2025-02-28 14:17 | XMS_ITS | Clinical Summary ---
Author Organization [facility] Address [address] [place] [address] Phone Care Team Providers Care Hospital Admissions Clerk Name Role Phone Ángel Multani MD Primary Care Provider [phone] Allergies Active Allergy Reactions Criticality Noted Date [...] mouth 1 (one) time each day Active [place]-3 Krill Oil 1000 MG capsule Take 1 [...] Rate - - Oxygen Saturation 95% 11/17/2022 1: 32 PM EDT Inhaled Oxygen Concentration - - [...] patient's age to complete this topic Insurance [facility] Medicare [facility] Medicare Care Teams Hospital Admissions Clerk Relationship Specialty Start Date End Date Ángel Multani MD [address] [facility] [place] PCP - General 06/25/20
--- OUTSIDE RECORDS SUMMARY | 2025-02-28 14:17 | XMS_ITS | Encounter Summary ---
Author Organization [facility] Address [address] [facility] [address] [place] [address] Phone Care Team Providers Care Quotation Checker Name Role Phone Ángel Multani MD Primary Care Provider [phone] Encounter Details Date Type Department Care Team (Late st Contact Info) Description 06/26/2022 Telephone [facility] [address] [facility] [address] [place] [address] Aguilar Gudino MD Social History [...] 06/26/2022 11:37 AM EST Pt FYI, Her hot molder changed diltiazem to 120 mg ER Caps, 1 cap daily documented in this encounter Plan of Treatment Not on file documented as of this encounter Visit Diagnoses Not on filedocumented in this encounter Care Teams Quotation Checker Relationship Specialty Start Date End Date Ángel Multani MD [address] [place] [address] PCP - General 06/25/20 documented as of this encounter
--- OUTSIDE RECORDS SUMMARY | 2025-02-28 14:17 | XMS_ITS | Patient Health Record ---
Author Organization [facility] Address [address] [place] [address] Care Team Providers Care Web Marketing Coordinator Name Role Phone Nerissa (RETIRED) Ángel IQBAL Primary Care Provider Unavailable Landen Gomez Unavailable [phone] Allergies Allergen (clinical drug ingredient) Drug/Non Drug [...] Risk Notes Problem Diverticulosis of colon (finding) (060204656) Diverticulosis of colon (without mention of hemorrhage) (562.10) Active confirmed Problem Screening for malignant neoplasm of colon (814449119) Special screening for malignant neoplasms, colon (V76.51) Active confirmed Plan Of Treatment Future Test Test Name Order Date COLONOSCOPY 07/04/2011 Insurance Providers Payer Name Payer Address Payer Phone Subscriber Number Group Number Insured Name Patient Relationship to Insured Coverage Start Date Coverage End Date MEDICARE OF [place] [address] [place] [address] [phone] [id number] KARAN ALBERTO Self - patient is the insured MEDEX ATTN CLAIMS [address] [place] [address] [id number] KARAN ALBERTO Self - patient is the insured Medical (General) History Medical History History ICD Code hypertension hyperlipidemia denies [place], diabetes, stroke, and lung di sease diverticulosis she describes some component of renal di sease Surgical History Surgery Date(Month/Year) appendectomy with the 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
--- OUTSIDE RECORDS SUMMARY | 2025-02-28 14:17 | XMS_ITS | Patient Health Record ---
Author Organization [facility] Address [address] [place] [address] Care Team Providers Care Explosives Operator Name Role Phone Ángel Multani MD Primary Care Provider Tyshawn Badillo Unavailable [phone] Allergies Allergen (clinical drug ingredient) Drug/Non Drug [...] 1 tablet Orally Once a day Active [place] 3 Active Probiotic Active Spironolactone-HCTZ 25-25 MG [...] Risk Notes Problem Pain in left foot (890474329988766) Pain in left foot (M79.672) Active confirmed Problem Localized, primary osteoarthritis of the ankle and/or foot (276695771) Primary osteoarthrit is, right ankle and foot (M19.071) Active confirmed Problem Localized, primary osteoarthritis of the ankle and/or foot (553366576) Primary osteoarthrit is, left ankle and foot (M19.072) Active confirmed Problem Acquired hammer toe of left foot (6465282203403890) Other hammer toe(s) (acquired), left foot (M20.42) Active confirmed Plan Of Treatment Pending Test Test Name Order Date X ray : Ankle, left 3V 09/14/2017 X ray : Foot, left 3V 05/14/2016 [id number] NAIL, -01/19/2017 17650-FJAJCKB NAIL, -05/18/2017 93618-Axrf Destruction, -05/18/2017 18155-Pbfi Destruction, -01/19/2017 81639-Bxgh Destruction, -12/14/2017 72196-Edeb Destruction, -03/15/2018 78751-Ffyf Destruction, -09/14/2017 27983-Dexpofgq Plate 02/11/2016 18833- Debride <25 sq cm 02/27/2016 91226- Debride <25 sq cm 05/14/2016 20166- Debride <25 sq cm 05/22/2017 94448- Debride <25 sq cm 05/24/2015 16610, Z2594-KVDZY/INJECT, JOINT/BURSA 1 07/19/2016 Insurance Providers Payer Name Payer Address Payer Phone Subscriber Number Group Number Insured Name Patient Relationship to Insured Coverage Start Date Coverage End Date Medicare National Govt Sv[employer] [address] [facility] [place] [address] [id number] Rosenda Butler Self - patient is the insured 8 Medex Blue [facility] [address] [place] [address] [id number] Rosenda Butler Self - patient is the [...]
[2025-02-28 14:20] LABS: Alanine Aminotransferase 25 U/L (0-31); Albumin Level 4.4 g/dL (3.5-5.0); Alkaline Phosphatase 83 U/L (39-117); Anion Gap 14 (12-20); Aspartate Amino Transferase 33 U/L (5-31); Blood Urea Nitrogen 24 mg/dL (9-16); Calcium 10.1 mg/dL (8.4-10.2); Carbon Dioxide 28 mmol/L (22-29); Chloride 105 mmol/L (96-108); Cholesterol 145 mg/dL (<200); Estimated Glomerular Filt Rate 35; HDL Cholesterol 48 mg/dL (>40); Potassium 4.5 mmol/L (3.3-5.1); Sodium 142 mmol/L (135-145); Total Protein 7.0 g/dL (6.5-8.0); Triglycerides 154 mg/dL (<150)
[2025-02-28 14:30] LABS: Thyroid Stimulating Hormone 2.96 uIU/mL (0.32-4.0)
== END 2025-02-28 10:44 | disposition home or self-care (01) ==
LOC: HO.HMGCLDS 10:43
PROVIDERS: PCP Internal Medicine; Referring Provider Internal Medicine Hypertension Specialist; Visit Provider Internal Medicine
DX: I12.9 Hypertensive chronic kidney disease with stage 1 through stage 4 chronic kidney disease, or unspecified chronic kidney disease (principal); N18.30 Chronic kidney disease, stage 3 unspecified; R80.9 Proteinuria, unspecified
CPT/HCPCS: 36415; 80048; 80061; 80076; 81003; 84443; 85027

== ENCOUNTER 2025-03-06 09:33 | Outpatient (AMB) | payer MEDICARE, SELFPAY ==
[2025-03-06 09:35] VITALS: BP 126/72; PULSE 84; O2SAT 96; BMI 36.3
--- NOTE | 2025-03-06 09:35 | HO.NEPHOV_ITS ---
Vital Signs 03/06/25 09:35 Height 5 ft 1 in Weight 192 lb BMI 36.3 BP 126/72 Blood Pressure Location Lt brachial Position Sitting Pulse 84 Pulse Source Pulse Oximeter Pulse Oximetry (%) 96 Oxygen Delivery Method Room Air Intake Visit Reasons: 6 MO FU-Conf Operations Vocational Instructor Required: No Accompanied by: Self / Same As Patient Allergies irbesartan (IRBESARTAN) Allergy (Intermediate, Verified 03/06/25 09:37) RASH latex (LATEX) Allergy (Intermediate, Verified 03/06/25 09:37) RASH NSAIDS (Non-Steroidal Anti-Inflamma (NSAIDS (NON-STEROIDAL ANTI-INFLAMMA) Allergy (Intermediate, Verified 03/06/25 09:37) STAGE 3 KIDNEY DISEASE sulfamethoxazole (From BACTRIM) Allergy (Intermediate, Verified 03/06/25 09:37) RASH trimethoprim (From BACTRIM) Allergy (Intermediate, Verified 03/06/25 09:37) RASH valsartan (From DIOVAN) Allergy (Intermediate, Verified 03/06/25 09:37) HIVE,DIFFICULTY BREATHING lisinopril (LISINOPRIL) Allergy (Unknown, Verified 03/06/25 09:37) PER MD losartan (LOSARTAN) Allergy (Unknown, Verified 03/06/25 09:37) PER MD Fndkvbj-NDZ-GzT Reductase Inhibitor (JDHDWKE-KLC-MBY REDUCTASE INHIBITOR) Allergy (Unknown, Verified 03/06/25 09:37) PER MD meperidine (From Demerol) Adverse Reaction (Mild, Verified 03/06/25 09:37) VOMITING BANDAIDS Allergy (Unknown, Uncoded 02/21/25 13:29) RASH ALL NARCOTICS Adverse Reaction (Unknown, Uncoded 02/21/25 13:29) NAUSEA AND VOMITING Medication List - Last Reconciled 03/06/25 by Aguilar Gudino MD allopurinol 100 mg PO DAILY apixaban (Eliquis) 5 mg PO BID 90 days cholecalciferol (vitamin D3) 25 mcg PO DAILY clotrimazole-betamethasone 1-0.05 % appl topical coenzyme Q10 (Co Q-10) 100 mg PO DAILY diltiazem HCl CD 180 mg PO DAILY ezetimibe 10 mg PO DAILY fexofenadine (Heidi Allergy) 180 mg PO DAILY PRN furosemide 20 mg PO DAILY metoprolol succinate ER 50 mg PO BID miscellaneous medical supply 1 ea miscellaneous DAILY rosuvastatin (Crestor) 20 mg PO DAILY HPI Comments Details: 78-year-old woman with a history of hypertension CKD. Serum creatinine is usually around 1.3-1.4 mg/dL. She has history of atrial fibrillation which seems to be controlled. She was offered watchman and she has refused. Sometimes she feels lightheaded when she tries to stand up. There has been a bump in serum creatinine up to 1.7 by in March and be as of April creatinine is down to 1.6 which is still higher than her baseline. No urine symptoms. 08/20/23: Feels better; Still with A.Fib ;Seen by Cardiology- she is not planning to do ablation 02/29/24; Recently in [facility] for CHF. Currently doing well. 08/29/24: Overall doing well. GAined few lbs. No urinary issues [facility] Medical History (Updated 03/01/25 @ 13:12 by Maddie Billy PA-C) Hypertriglyceridemia Sleep apnea Essential hypertension Hemorrhage of gastrointestinal tract, unspecified Aortic calcification Duodenal ulcer PAF (paroxysmal atrial fibrillation) Surgical History History of bunionectomy History of esophagogastroduodenoscopy (EGD) H/O colonoscopy (~09/01/11) History of colectomy History of foot surgery History of parathyroidectomy History of hysterectomy Family History Father No problems noted. Mother No problems noted. Brother FH: testicular cancer Social History Housing: House Alcohol intake: current Alcohol intake frequency: holidays/special occasions only Alcohol type: wine Patient Tobacco Use Status: Former Tobacco user Tobacco use type: Cigarette Cigarettes Per Day: 20 Years Smoked: 30 service: No Current occupational status: retired Cognitive needs: No Hearing needs: Yes (b/l hearing aids) Vision needs: Yes (rx glasses) Physical Exam Vital Signs: BMI result Body Mass Index 36.3 Const General: comfortable; No acute distress Orientation/consciousness: patient oriented x3 Eyes General: appearance normal, both eyes and all related structures Visual Cornejo: normal visual cornejo by confrontation Neck Neck: Yes supple and Yes no JVD Resp Effort & Inspection: normal respiratory effort and respiratory effort not decreased Auscultation: no rhonchi Cardio Palpation: no palpable S3 and no palpable S4 Heart sounds: no rubs GI Inspection: Yes normal to inspection Palpation (GI): Soft to palpation Percussion: Yes normal to percussion Auscultation: normal bowel sounds General: Yes no CVA tenderness Back/Spine/Pelvis Back: no CVA tenderness Skin General skin exam: no petechiae and no purpura Neuro General: patient oriented x3 and no focal motor deficits Extrem General: No clubbing and No edema Results Reviewed Results Reviewed: USG Jun 2023 RIGHT KIDNEY: 9.8 x 4.1 x 3.4 cm (SAG x AP x TRV). Lower pole 1.9 x 1.6 x 1.7 cm cyst with thin septation. Lower pole 1.9 cm simple cyst. There is no indication for follow-up imaging. No hydronephrosis. No renal calculi. Limited visualization. LEFT KIDNEY: 10.5 x 4.7 x 4.6 cm (SAG x AP x TRV). No hydronephrosis. No renal calculi. Limited visualization. Lower pole 3.9 x 5.5 x 3.7 cm cyst appears simple. There is no indication for follow-up imaging. Additional smaller renal cysts. US/US renal BI IMPRESSION: No hydronephrosis. No renal calculi. Limited visualization. Nephrology Results: Hgb, (12.0-16.0) 15.2 g/dl 02/28/25 WBC, (4.8-10.8) 4.5 X10*3/uL L 02/28/25 Plt Count, (160-400) 230 X10*3/uL 02/28/25 Sodium, (135-145) 142 mmol/L 02/28/25 Potassium, (3.3-5.1) 4.5 mmol/L 02/28/25 Chloride, (96-108) 105 mmol/L 02/28/25 Carbon Dioxide, (22-29) 28 mmol/L 02/28/25 BUN, (9-16) 24 mg/dL H 02/28/25 Creatinine, (0.5-1.4) 1.45 mg/dL H 02/28/25 Calcium, (8.4-10.2) 10.1 mg/dL 02/28/25 Urine Protein, (Neg-Trace) Trace mg/dL 02/28/25 Renal US 07/13/23 Assessment & Plan Assessment & Plan (1) Essential hypertension: Code(s): I10 - Essential (primary) hypertension Category: Medical (2) Stage III chronic kidney disease: Code(s): N18.30 - Chronic kidney disease, stage 3 unspecified Category: Surgical (3) Hyperparathyroidism: Comment: Status post parathyroidectomy Code(s): E21.3 - Hyperparathyroidism, unspecified Category: Medical (4) Microalbuminuria: Code(s): R80.9 - Proteinuria, unspecified Category: Medical Plan: Continue with RAAS inhibition with Aldactazide Plan Elderly woman with stage III CKD in the setting of hypertension with a baseline creatinine 1.4 mg/dL has sustained SHAW. Cr up to 1.7 due to hypoperfusion Now back to baseline of 1.19 BP is well controlled NO change inmeds Continue to avoid nephrotoxic agents. Stable benign renal cyst A.fib abd CHF Management per cardiology Stay on low slat diet ( avoid pretzels!) 03/06/25 History of Present Illness - The patient is an 79-year-old female presenting with chronic kidney disease management. - Atrial fibrillation managed with metoprolol. - Blood pressure stable at 126/72 mmHg, on furosemide 20 mg. - Slight decline in kidney function noted in recent labs. - No new medications or changes in regimen. - Hypertriglyceridemia noted, information provided by primary care. - Osteoarthritis managed with glucosamine and methylsulfonylmethane supplement. Physical Exam General: Awake. Comfortable. HENT: Neck supple. Mucosa moist. Pulmonary: Lungs aeration equal. No rales. Cardiology: Heart S1-S2 heard. No gallop. Abdomen: Soft. Non tender. Bowel sounds normal. Neurologic: No involuntary movements. No myoclonus. Extremities: No edema. No rash. Plan 1. Chronic Kidney Disease - Reduce furosemide to every other day. - Follow-up blood work in one month. - Ensure adequate fluid intake, avoid NSAIDs. 2. Atrial Fibrillation - Continue metoprolol. 3. Hypertension - Continue current management. 4. Hypertriglyceridemia - Monitor triglyceride levels. 5. Osteoarthritis - Continue supplement. Patient Instructions - Take furosemide every other day. - Return for blood work in one month. - Drink plenty of fluids and avoid NSAIDs like Aleve, Advil, and Motrin. - Continue taking metoprolol and supplements for osteoarthritis. Orders: Orders Basic Metabolic Panel 6 Months N18.30 - Chronic kidney disease, stage 3 unspecified Basic Metabolic Panel 4 Weeks N18.30 - Chronic kidney disease, stage 3 unspecified Coding Level of Care Code Est Pt Level 4 (18285) Diagnoses Essential hypertension I10 Stage III chronic kidney disease N18.30 Hyperparathyroidism E21.3 Microalbuminuria R80.9
--- OUTSIDE RECORDS SUMMARY | 2025-03-06 11:16 | XMS_ITS | Patient Health Record ---
Author Organization [facility] Address [address] [place] [address] Care Team Providers Care Heater Helper Forge Name Role Phone Nerissa (RETIRED) Ángel IQBAL Primary Care Provider Unavailable Landen Gomez Unavailable [phone] Allergies Allergen (clinical drug ingredient) Drug/Non Drug [...] Risk Notes Problem Diverticulosis of colon (finding) (097928053) Diverticulosis of colon (without mention of hemorrhage) (562.10) Active confirmed Problem Screening for malignant neoplasm of colon (458480915) Special screening for malignant neoplasms, colon (V76.51) Active confirmed Plan Of Treatment Future Test Test Name Order Date COLONOSCOPY 07/04/2011 Insurance Providers Payer Name Payer Address Payer Phone Subscriber Number Group Number Insured Name Patient Relationship to Insured Coverage Start Date Coverage End Date [place] [address] [place] [address] [id number] KARAN ALBERTO Self - patient is the insured MEDEX ATT[employer] CLAIMS [address] [place] [address] [id number] KARAN ALBERTO Self - patient is the insured Medical (General) History Medical History History ICD Code hypertension hyperlipidemia denies [place], diabetes, stroke, and lung di sease diverticulosis she describes some component of renal di sease Surgical History Surgery Date(Month/Year) appendectomy with the 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
--- OUTSIDE RECORDS SUMMARY | 2025-03-06 11:16 | XMS_ITS | Patient Health Record ---
Author Organization [facility] Address [address] [place] [address] Care Team Providers Care Combination Presser Name Role Phone Ángel Multani MD Primary Care Provider Tyshawn Badillo Unavailable [phone] Allergies Allergen (clinical drug ingredient) Drug/Non Drug [...] 1 tablet Orally Once a day Active [place] 3 Active Probiotic Active Spironolactone-HCTZ 25-25 MG [...] Risk Notes Problem Pain in left foot (714891891081779) Pain in left foot (M79.672) Active confirmed Problem Localized, primary osteoarthritis of the ankle and/or foot (736021811) Primary osteoarthrit is, right ankle and foot (M19.071) Active confirmed Problem Localized, primary osteoarthritis of the ankle and/or foot (229286198) Primary osteoarthrit is, left ankle and foot (M19.072) Active confirmed Problem Acquired hammer toe of left foot (0317999947033171) Other hammer toe(s) (acquired), left foot (M20.42) Active confirmed Plan Of Treatment Pending Test Test Name Order Date X ray : Ankle, left 3V 09/14/2017 X ray : Foot, left 3V 05/14/2016 [id number] NAIL, -01/19/2017 75178-VTULRTP NAIL, -05/18/2017 37159-Urnh Destruction, -05/18/2017 58073-Drpe Destruction, -01/19/2017 58960-Emlv Destruction, -12/14/2017 10943-Jghj Destruction, -03/15/2018 93048-Stug Destruction, -09/14/2017 42199-Ltkjgvjz Plate 02/11/2016 28779- Debride <25 sq cm 02/27/2016 03240- Debride <25 sq cm 05/14/2016 54285- Debride <25 sq cm 05/22/2017 63907- Debride <25 sq cm 05/24/2015 08524, D7060-XISCM/INJECT, JOINT/BURSA 1 07/19/2016 Insurance Providers Payer Name Payer Address Payer Phone Subscriber Number Group Number Insured Name Patient Relationship to Insured Coverage Start Date Coverage End Date Medicare National Govt Svcs Inc [address] [facility] [place] [address] [id number] Rosenda Butler Self - patient is the insured 8 Medex Blue [facility] [address] [place] [address] [phone] [id number] Rosenda Butler Self - patient is the [...]
--- OUTSIDE RECORDS SUMMARY | 2025-03-06 11:16 | XMS_ITS | Encounter Summary ---
Author Organization [facility] Address [address] [facility] [address] [place] [address] Phone Care Team Providers Care Preventive Maintenance Coordinator Name Role Phone Ángel Multani MD Primary Care Provider [phone] Encounter Details Date Type Department Care Team (Late st Contact Info) Description 06/26/2022 Telephone [facility] [address] [facility] [address] [place] [address] Aguilar Gudino MD Social History [...] Notes * Telephone Encounter - Mary Jane rTujillo - 06/26/2022 11:37 AM EST Pt FYI, Her build and release manager changed diltiazem to 120 mg ER Caps, 1 cap daily documented in this encounter Plan of Treatment Not on file documented as of this encounter Visit Diagnoses Not on filedocumented in this encounter Care Teams Preventive Maintenance Coordinator Relationship Specialty Start Date End Date Ángel Multani MD [address] [place] [address] PCP - General 06/25/20 documented as of this encounter
--- OUTSIDE RECORDS SUMMARY | 2025-03-06 11:16 | XMS_ITS | Clinical Summary ---
Author Organization [facility] Address [address] [place] [address] Phone Care Team Providers Care Assistant Infant Teacher Name Role Phone Ángel Multani MD Primary Care Provider Allergies Active Allergy Reactions Criticality Noted Date [...] mouth 1 (one) time each day Active [place]ab[place]-3 Krill Oil 1000 MG capsule Take 1 [...] patient's age to complete this topic Insurance [facility] Medicare [facility] Medicare Care Teams Assistant Infant Teacher Relationship Specialty Start Date End Date Ángel Multani MD [address] [facility] [place] PCP - General 06/25/20
== END 2025-03-06 09:47 | disposition home or self-care (01) ==
LOC: HO.HKA 09:34
PROVIDERS: PCP Internal Medicine; Visit Provider Internal Medicine Hypertension Specialist
DX: I10 Essential (primary) hypertension (principal); N18.30 Chronic kidney disease, stage 3 unspecified; E21.3 Hyperparathyroidism, unspecified; R80.9 Proteinuria, unspecified
CPT/HCPCS: 99214

== ENCOUNTER → 2025-03-06 09:33 | Outpatient (BNVA) | payer MEDICARE, SELFPAY | PROVIDERS: PCP Internal Medicine; Visit Provider Internal Medicine Hypertension Specialist | DX: I12.9 Hypertensive chronic kidney disease with stage 1 through stage 4 chronic kidney disease, or unspecified chronic kidney disease (principal); N18.30 Chronic kidney disease, stage 3 unspecified; E21.3 Hyperparathyroidism, unspecified; R80.9 Proteinuria, unspecified | CPT/HCPCS: 99212 ==

== ENCOUNTER 2025-04-05 08:41 | Outpatient (REF) | payer MEDICARE, SELFPAY ==
[2025-04-05 11:00] LABS: Anion Gap 12 (12-20); Blood Urea Nitrogen 27 mg/dL (9-16); Calcium 9.8 mg/dL (8.4-10.2); Carbon Dioxide 27 mmol/L (22-29); Chloride 108 mmol/L (96-108); Estimated Glomerular Filt Rate 38; Potassium 5.2 mmol/L (3.3-5.1); Sodium 142 mmol/L (135-145)
== END 2025-04-05 08:42 | disposition home or self-care (01) ==
LOC: HO.HMGCLDS 08:41
PROVIDERS: PCP Internal Medicine; Visit Provider Internal Medicine Hypertension Specialist
DX: N18.30 Chronic kidney disease, stage 3 unspecified (principal)
CPT/HCPCS: 36415; 80048